=== PATIENT | male | born 1960 | race Caucasian/White ===

== ENCOUNTER 2019-02-16 18:20 | Inpatient (IN) | payer OTHER, MEDICAID ==
[2019-02-16] VITALS (7 sets, daily range): BP systolic 109–130
[~2019-02-16] VITALS: Ht 175.3 cm; Wt 103.0 kg
--- NOTE | 2019-02-16 18:15 | NUR ---
TO ICU. RECEIVED PATIENT VIA GURNEY, AMBULANCE TRANSPORT, PT ALERT, MAKING PEACE SIGN WITH HIS FINGERS, ON O2 VIA OXYMIZER AT 10L, NGT INTACT IN LEFT NARIS, CONNECTED TO LOW INTERMITTENT SUCTION, WITH GREENISH BILE DRAINAGE, ABDOMEN DISTENDED, DIAPER REMOVED, DENUDED BUTTOCKS, PT HX CEREBRAL PALSY, PARAPLEGIA,HIS RIGHT FOOT TURNED OUTWARD. SAP SECURITY ARCHITECT ON SINUS TACHYCARDIA, PULSE OXIMETER AND BLOOD PRESSURE CUFF ATTACHED TO PT.
--- NOTE | 2019-02-16 19:00 | NUR ---
REPORT. GIVEN TO ONCOMING VP PROJECT NURSE.
--- NOTE | 2019-02-16 19:30 | NUR ---
PM ASSESSMENT REPORT RECEIVED FROM CARLA DIEZ. PT RECEIVED IN BED WITH EYES OPEN, RESPONDING TO VERBAL STIMULATION. PT ABLE TO FOLLOW SIMPLE COMMANDS AND IS VERBAL WITH SLOW SPEECH. VSS, NO S/S OF ACUTE DISTRESS NOTED. PT ON 10L OXIMIZER. ST ON MONITOR. DANIEL 20G IN PLACE TO SL, PATENT AND INTACT. L NARE NGT IN PLACE TO LOW INTERMITTENT SUCTION. GREEN DRAINAGE NOTED. PT DENIES ANY PAIN OR DISCOMFORT AT THIS TIME. HOB ELEVATED, BED IN LOWEST POSITION, CALL LIGHT IN REACH. WILL CONTINUE TO MONITOR PT.
[2019-02-16] MEDS ORDERED: GABA300S PO (20:31)
[2019-02-16] MEDS ORDERED: PRO10 PO (20:31)
[2019-02-16] MEDS ORDERED: LISI-600 PO (20:31)
[2019-02-16] MEDS ORDERED: OXYB5TAB11 PO (20:31)
[2019-02-16] MEDS ORDERED: POLY17PO4 PO (20:31)
[2019-02-16] MEDS ORDERED: LACT10SO6 PO (20:31)
[2019-02-16] MEDS ORDERED: TAMS-11 PO (20:31)
[2019-02-16] MEDS ORDERED: LEVE500T9 PO (20:31)
[2019-02-16] MEDS ORDERED: PIPE3.3714 IV (20:31)
[2019-02-16] MEDS ORDERED: BISA5TAB10 PO (20:31)
[2019-02-16] MEDS ORDERED: METO-290 PO (20:32)
[2019-02-16] MEDS ORDERED: DOCU250C71 PO (20:32)
[2019-02-16] MEDS ORDERED: ASA81 PO (20:32)
--- NOTE | 2019-02-16 20:50 | NUR ---
CONSULTATION PAGED/CALLED Reason for Consultation: SBO, POSSIBLE BOWEL NECROSIS Person Who was Notified: JASPER Consulting Physician: DR. BECKFORD Ordering Physician: DR. EMERSON
[2019-02-16] MEDS ORDERED: Calcium Carbonate PO (20:52)
--- NOTE | 2019-02-16 20:53 | NUR ---
CONSULTATION PAGED/CALLED Reason for Consultation: CRITICAL CARE Person Who was Notified: PACO Consulting Physician: DR. BLANK Fish Boning Machine Feeder Specialty: PULMO Ordering Physician: DR. EMERSON
[2019-02-16] MEDS ORDERED: DOCUSATE SODIUM 250 MG CAPSULE PO PRN (21:00)
--- NOTE | 2019-02-16 21:30 | NUR ---
PINEDA CATH: # 16 FR Pineda catheter with 10 cc bulb inserted with use of sterile technique. Bulb inflated with 10 cc sterile water. Immediate return of 100 cc YELLOW urine noted. Bedside drainage bag placed below level of bladder. Urine sample collected and sent to lab. Pt tolerated procedure WELL.
--- NOTE | 2019-02-16 21:31 | NUR ---
PAGED PAGING DR. BECKFORD FOR ORDERS, SPOKE WITH JASPER
--- NOTE | 2019-02-16 22:00 | NUR ---
IV SITE INSERTION 20G LAC AND 22G R ANKLE IV SITES INSERTED AT THIS TIME. BOTH IV SITES FLUSHED WITH 10 CC NS AND BLOOD RETURN NOTED. PT TOLERATED WELL. WILL CONTINUE TO MONITOR PT.
--- NOTE | 2019-02-16 22:00 | NUR ---
PAGED x2 SECOND PAGE SENT OUT TO DR. BECKFORD FOR ORDERS, SPOKE WITH JASPER
[2019-02-16] MEDS ORDERED: MIDAZOLAM HCL 5 MG/5 ML VIAL IVP ONE (22:30)
[2019-02-16] MEDS ORDERED: ROCURONIUM BROMIDE 10 MG/ML (ZEMURON) IV ONE (22:30)
[2019-02-16] MEDS ORDERED: fentaNYL CITRATE/PF 100 MCG/2 ML AMP IVP ONE (22:30)
[2019-02-16] MEDS ORDERED: LR 500 ML IV.SOLN IV ONE (22:30)
[2019-02-16] MEDS ORDERED: SEVOFLURANE 15 MIN GAS INH ONE (22:30)
[2019-02-16] MEDS ORDERED: PROPOFOL 200MG/ 20ML VIAL (DIPRIVAN) IV ONE (22:30)
[2019-02-16] MEDS ORDERED: NS IRRIG SOLN 1000 ML IR ONE (22:30)
--- NOTE | 2019-02-16 22:30 | NUR ---
DR. ANALY MICHEL NOT RETURNING PAGES. PAGED THREE TIMES. WILL FOLLOW UP WITH AM SHIFT TO PAGE AGAIN REGARDING ORDERS.
[2019-02-16 23:00] LABS: INR 1.1 (0.80-1.20); PROTHROMBIN TIME 10.9 SECS (9.5-12.5)
[2019-02-16 23:09] LABS: HEMATOCRIT 41.3 % (36-54); HEMOGLOBIN 13.6 g/dL (14.0-18.0); MEAN CORPUSCULAR HEMOGLOBIN 32 pg (27-31); MEAN CORPUSCULAR HGB CONC 33 % (32-36); MEAN CORPUSCULAR VOLUME 96 fL (79.0-98.0); PLATELET COUNT (AUTO) 289 K/uL (130-430); RED BLOOD CELL COUNT(AUTO) 4.31 MIL/uL (4.2-6.2); RED CELL DISTRIBUTION WIDTH 14.2 % (9.0-15.0)
[2019-02-16 23:11] LABS: BILIRUBIN,URINE 1+ (NEGATIVE); CLARITY/URINE CLEAR (CLEAR); COLOR,URINE ORANGE (YELLOW); GLUCOSE,URINE NEGATIVE (NEGATIVE); KETONES,URINE 1+ (NEGATIVE); LEUKOCYTE ESTERASE ,URINE NEGATIVE (NEGATIVE); NITRITE, URINE NEGATIVE (NEGATIVE); PH,URINE 6.5 (5.0-8.0); PROTEIN URINE 2+ (NEGATIVE); UROBILINOGEN,URINE 0.2 (0.2-1.0)
[2019-02-16 23:12] LABS: BLOOD, URINE TRACE (NEGATIVE)
[2019-02-16 23:18] LABS: BACTERIA,URINE FEW /HPF (None Seen); HYALINE CASTS, URINE 0-10 /LPF (None Seen); WBC,URINE 0-3 /HPF (0-3)
[2019-02-16] MEDS ORDERED: PIPERACILLIN/TAZOBACTAM 3.375 GM/VIAL (ZOSYN) IV ONE (23:18)
[2019-02-16 23:33] LABS: ATYPICAL LYMPHOCYTES % 4 % (0-0); BAND % (MANUAL) 10 % (0-6); BASOPHILS % (MANUAL) 0 % (0-2); EOSINOPHILS % (MANUAL) 0 % (0-7); LYMPHOCYTES % (MANUAL) 9 % (20-46); METAMYELOCYTES % 4 % (0-0); MONOCYTES % (MANUAL) 4 % (0-11)
[2019-02-16] MEDS: PIPERACILLIN/TAZO 3.375/DEX-IS 50 ML IV SCH (23:37)
[2019-02-16] MEDS: DOCUSATE SODIUM 100 MG CAPSULE PO SCH (23:38)
[2019-02-16] MEDS: METOCLOPRAMIDE HCL 10 MG TABLET PO SCH (23:38)
[2019-02-16] MEDS: OXYBUTYNIN CHLORIDE 5 MG TABLET PO SCH (23:38)
[2019-02-16] MEDS: GABAPENTIN 300 MG CAPSULE PO SCH (23:38)
[2019-02-16] MEDS: levETIRAcetam 500 MG TABLET PO SCH (23:38)
[2019-02-16] MEDS: HEPARIN SODIUM,PORCINE 5000 UNITS/ML VIAL SUBCUT SCH (23:39)
[2019-02-16 23:41] LABS: ALBUMIN 2.3 g/dL (3.4-4.8); CREATININE 0.64 mg/dL (0.55-1.30); FREE T4 (FREE THYROXINE) 0.6 ng/dL (0.6-1.6); PHOSPHORUS 1.6 mg/dL (2.7-4.5); POTASSIUM 3.4 mmol/L (3.5-5.1); THYROID STIMULATING HORMONE 0.33 uIu/mL (0.34-4.82); TOTAL BILIRUBIN 2.2 mg/dL (0.0-1.0)
[2019-02-16] MEDS: D5NS 1,000 ML IV SCH (23:44)
[2019-02-17] VITALS (24 sets, daily range): BP systolic 116–149
[2019-02-17] MEDS: PIPERACILLIN/TAZO 3.375/DEX-IS 50 ML IV SCH ×3 (05:01→17:08)
[2019-02-17 05:56] LABS: BASOPHILS % (AUTO) 0.2 % (0.0-2.0); EOSINOPHILS % (AUTO) 0.1 % (0.0-4.0); HEMATOCRIT 39.6 % (36-54); HEMOGLOBIN 13.2 g/dL (14.0-18.0); LYMPHOCYTES # (AUTO) 1.2 K/uL (1.0-5.5); LYMPHOCYTES % (AUTO) 8.8 % (20.5-51.5); MEAN CORPUSCULAR HEMOGLOBIN 32 pg (27-31); MEAN CORPUSCULAR HGB CONC 33 % (32-36); MEAN CORPUSCULAR VOLUME 97 fL (79.0-98.0); MONOCYTES # (AUTO) 1.2 K/uL (0.0-1.0); MONOCYTES % (AUTO) 8.9 % (1.7-9.3); NEUTROPHILS # (AUTO) 10.9 K/uL (1.8-7.7); PLATELET COUNT (AUTO) 283 K/uL (130-430); RED CELL DISTRIBUTION WIDTH 14.1 % (9.0-15.0); WHITE BLOOD COUNT (AUTO) 13.2 K/uL (4.8-10.8)
[2019-02-17 06:12] LABS: INR 1.1 (0.80-1.20); PROTHROMBIN TIME 10.8 SECS (9.5-12.5)
[2019-02-17 06:24] LABS: CALCIUM 8.9 mg/dL (8.4-11.0); CREATININE 0.7 mg/dL (0.55-1.30); POTASSIUM 3.2 mmol/L (3.5-5.1)
--- NOTE | 2019-02-17 07:04 | NUR ---
Opening Note Received plan of care via SBAR from endorsing nurse Terra DIEZ. Completed patient round.
--- NOTE | 2019-02-17 07:14 | NUR ---
ENDORSEMENT BEDSIDE REPORT GIVEN TO CHEYENNE DIEZ USING SBAR APPROACH.
[2019-02-17] MEDS ORDERED: POTASSIUM CHLORIDE 40 MEQ, LIDOCAINE JECT 2% PF 100 MG 50 MG in NS 250 ML IV ONE (07:15)
[2019-02-17] MEDS: D5NS 1,000 ML IV SCH ×2 (08:15→17:08)
[2019-02-17] MEDS: TAMSULOSIN HCL 0.4 MG CAP PO SCH (08:18)
[2019-02-17] MEDS: METOCLOPRAMIDE HCL 10 MG TABLET PO SCH (08:18)
[2019-02-17] MEDS: levETIRAcetam 500 MG TABLET PO SCH ×2 (08:18→21:18)
[2019-02-17] MEDS: OXYBUTYNIN CHLORIDE 5 MG TABLET PO SCH ×3 (08:18→21:18)
[2019-02-17] MEDS: FLUoxetine HCL 10 MG CAPSULE (PROzac) PO SCH (08:18)
[2019-02-17] MEDS: ASPIRIN 81 MG TAB.CHEW PO SCH (08:18)
[2019-02-17] MEDS: LACTULOSE 20 GM/30 ML UDC PO SCH (08:19)
[2019-02-17] MEDS: POLYETHYLENE GLYCOL 3350, 17 GM/ POWD.PACK PO SCH (08:19)
[2019-02-17] MEDS: DOCUSATE SODIUM 100 MG CAPSULE PO SCH ×2 (08:19→21:18)
[2019-02-17] MEDS: BISACODYL 5 MG TABLET.DR (DULCOLAX) PO SCH (08:19)
[2019-02-17] MEDS: LISINOPRIL 20 MG TABLET PO SCH (08:19)
--- NOTE | 2019-02-17 09:00 | NUR ---
PAGED DR. BECKFORD PER NURSE SPOKE TO ALEXIS DIALED [phone]
[2019-02-17] MEDS: HEPARIN SODIUM,PORCINE 5000 UNITS/ML VIAL SUBCUT SCH ×2 (09:01→21:18)
--- NOTE | 2019-02-17 09:15 | NUR ---
Received call from Dr. Arndt. He recommended that the patient should be transferred to tertiary care. At the end of the conversation, ordered a gastrographing enema without barium. Requested to call [phone] directly after receiving results from the gastrographing.
[2019-02-17] MEDS ORDERED: GASTROGRAFIN 120 ML ONE (10:54)
[2019-02-17] MEDS: MORPHINE 2 MG/ML INJ. SYRINGE IVP PRN (12:16)
--- NOTE | 2019-02-17 14:10 | NUR ---
Turned pt to right side for gastrograffin study per astro technician. Pt started coughing and NG connected to LIS with immediate return of 1300cc green drainage. Will leave NG to LIS and monitor drainage.
--- NOTE | 2019-02-17 15:12 | NUR ---
Spoke with Dr. Munoz on the phone. Informed him pt was placed on his right side at the request of the tech to get the contrast to go through as she didn't see the contrast moving through the pts system. When pt was turned to his side right the patient started coughing and I connected the NG tube to suction approx an hour ago with a return of 1600cc green drainage in that hour alone. He said that I should call the surgeon and let him know this. process control tech here for another picture and said she saw gastrograffin moving through. Will call Dr. Asher with results of this last xray.
--- NOTE | 2019-02-17 15:30 | NUR ---
Called Dr. Asher and informed him that the next xray for gastrograffin test was at 1715 today. Also informed him that has had a total of 2700cc out on day shift today. He would like to be called on his cell phone at [phone] when test results are in.
--- NOTE | 2019-02-17 19:20 | NUR ---
Closing Note Gave plan of care via SBAR to endorsing nurse Juice RN. Completed patient round.
[2019-02-17 19:26] LABS: BASOPHILS % (AUTO) 0.1 % (0.0-2.0); EOSINOPHILS % (AUTO) 0.4 % (0.0-4.0); HEMATOCRIT 38.5 % (36-54); HEMOGLOBIN 12.5 g/dL (14.0-18.0); LYMPHOCYTES # (AUTO) 1.3 K/uL (1.0-5.5); LYMPHOCYTES % (AUTO) 10.4 % (20.5-51.5); MEAN CORPUSCULAR HEMOGLOBIN 32 pg (27-31); MEAN CORPUSCULAR HGB CONC 33 % (32-36); MEAN CORPUSCULAR VOLUME 97 fL (79.0-98.0); MONOCYTES # (AUTO) 1.4 K/uL (0.0-1.0); MONOCYTES % (AUTO) 10.8 % (1.7-9.3); NEUTROPHILS # (AUTO) 10.2 K/uL (1.8-7.7); NEUTROPHILS % (AUTO) 78.3 % (40.0-70.0); PLATELET COUNT (AUTO) 271 K/uL (130-430); RED BLOOD CELL COUNT(AUTO) 3.97 MIL/uL (4.2-6.2)
[2019-02-17 19:30] LABS: CALCIUM 8.8 mg/dL (8.4-11.0); CREATININE 0.63 mg/dL (0.55-1.30); POTASSIUM 3.4 mmol/L (3.5-5.1)
[2019-02-17 19:34] LABS: ALBUMIN 1.9 g/dL (3.4-4.8); TOTAL BILIRUBIN 1.9 mg/dL (0.0-1.0)
--- NOTE | 2019-02-17 20:00 | NUR ---
SLOW TO RESPOND, BUT IS ABLE TO LET NEEDS BE KNOWN. ON O2 AT 5L/OXYMIZER. PARAPLEGIC. HEAD TILTS TO LEFT. PINEDA CATH PATENT DRAINING CLOUDY GRAEME URINE TO GRAVITY. RIGHT UPPER ARM PICC LINE DRSG D/I. LEFT NARES NGT TO LIS WITH DARK GREEN SECRETIONS DRAINING. SIDE RAILS PADDED. PARAPLEGIC.
--- NOTE | 2019-02-17 20:15 | NUR ---
COLLECTED SPUTUM SAMPLE PER ORDER, NO DISTRESS NOTED. RETURNED PT TO 5L O2 Addendum: 02/17/19 at 2036 by Debbie West RT Amended: Links added.
[2019-02-17] MEDS ORDERED: D5/0.45 NS 1,000 ML IV SCH (21:15)
[2019-02-17] MEDS: GABAPENTIN 300 MG CAPSULE PO SCH (21:17)
--- NOTE | 2019-02-17 22:00 | NUR ---
HS CARE GIVEN. AGGRESSIVE ORAL CARE DONE. TURNED.
--- NOTE | 2019-02-17 23:00 | NUR ---
FAMILY LEFT FOR HOME EARLIER. IV CHANGED TO D5 1/2NS AT 80CC/HR PER ORDER OF DR EMERSON.
[2019-02-18] VITALS (22 sets, daily range): BP systolic 94–137
[2019-02-18] MEDS: PIPERACILLIN/TAZO 3.375/DEX-IS 50 ML IV SCH ×5 (00:17→23:59)
--- NOTE | 2019-02-18 02:00 | NUR ---
DOZES ON AND OFF. NGT WITH COPIOUS AMOUNTS OF SECRETIONS NOTED.
--- NOTE | 2019-02-18 05:00 | NUR ---
1 MOD BROWN FORMED STOOL DEFECATED. CLEANED. CHG BATH GIVEN. MONA-CARE. Z-GUARD APPLIED. SKIN CARE GIVEN. PINEDA CARE, ORAL CARE, BACK CARE DONE. DOES NOT ASSIST WITH TURNING. YAO PROC WELL.
[2019-02-18 05:43] LABS: BASOPHILS # (AUTO) 0.1 K/uL (0.0-0.2); BASOPHILS % (AUTO) 0.3 % (0.0-2.0); EOSINOPHILS # (AUTO) 0.1 K/uL (0.0-0.4); HEMOGLOBIN 12.4 g/dL (14.0-18.0); LYMPHOCYTES # (AUTO) 1.8 K/uL (1.0-5.5); LYMPHOCYTES % (AUTO) 11.7 % (20.5-51.5); MEAN CORPUSCULAR HEMOGLOBIN 31 pg (27-31); MEAN CORPUSCULAR HGB CONC 33 % (32-36); MEAN CORPUSCULAR VOLUME 96 fL (79.0-98.0); MONOCYTES # (AUTO) 1.8 K/uL (0.0-1.0); MONOCYTES % (AUTO) 11.8 % (1.7-9.3); NEUTROPHILS # (AUTO) 11.3 K/uL (1.8-7.7); NEUTROPHILS % (AUTO) 75.2 % (40.0-70.0); PLATELET COUNT (AUTO) 249 K/uL (130-430); RED BLOOD CELL COUNT(AUTO) 3.97 MIL/uL (4.2-6.2); RED CELL DISTRIBUTION WIDTH 14.1 % (9.0-15.0)
[2019-02-18 05:59] LABS: CALCIUM 8.7 mg/dL (8.4-11.0); CREATININE 0.7 mg/dL (0.55-1.30); POTASSIUM 3.3 mmol/L (3.5-5.1)
--- NOTE | 2019-02-18 06:00 | NUR ---
NGT 1600 CC OUT. UO 250CC OUT. REMAINS IN GUARDED CONDITION.
--- NOTE | 2019-02-18 07:15 | NUR ---
AM ASSESSMENT Pt received from night RN. Pt laying in bed with eyes closed, pt is easily awaken to verbal stimuli. Pt on oximizer 5L with sats >98%. Brandon cath in place draining abhi urine to gravity. L-Nare NG tube to suction producing green contents. Bed in lowest position, no signs of distress. Pt denies any pain.
--- NOTE | 2019-02-18 08:26 | NUR ---
Nutrition Update Fahad Scale 13 noted. Pt admitted for possible Bowel Obstruction. Diet: NPO BMI: 33.5 RD to follow per nutrition care standards.
--- NOTE | 2019-02-18 08:29 | NUR ---
CONSULT: ID DR. Marissa BOONE CALLED SPOKE TO VIVIENNE DIALED [phone] MEDEROS
[2019-02-18] MEDS: LACTULOSE 20 GM/30 ML UDC PO SCH (08:52)
[2019-02-18] MEDS: POLYETHYLENE GLYCOL 3350, 17 GM/ POWD.PACK PO SCH (08:52)
[2019-02-18] MEDS: OXYBUTYNIN CHLORIDE 5 MG TABLET PO SCH ×3 (08:53→21:17)
[2019-02-18] MEDS: DOCUSATE SODIUM 100 MG CAPSULE PO SCH ×2 (08:53→21:17)
[2019-02-18] MEDS: levETIRAcetam 500 MG TABLET PO SCH ×2 (08:53→21:17)
[2019-02-18] MEDS: TAMSULOSIN HCL 0.4 MG CAP PO SCH (08:53)
[2019-02-18] MEDS: BISACODYL 5 MG TABLET.DR (DULCOLAX) PO SCH (08:53)
[2019-02-18] MEDS: FLUoxetine HCL 10 MG CAPSULE (PROzac) PO SCH (08:53)
[2019-02-18] MEDS: ASPIRIN 81 MG TAB.CHEW PO SCH (08:53)
[2019-02-18] MEDS: LISINOPRIL 20 MG TABLET PO SCH ×2 (08:53→09:00)
[2019-02-18] MEDS: HEPARIN SODIUM,PORCINE 5000 UNITS/ML VIAL SUBCUT SCH ×2 (08:55→22:19)
[2019-02-18] MEDS ORDERED: POTASSIUM CHLORIDE 40 MEQ in D5W 250 ML IV ONE (10:30)
[2019-02-18] MEDS: POTASSIUM CHLORIDE 10 MEQ in D5W 1,000 ML IV SCH ×2 (11:11→22:20)
--- NOTE | 2019-02-18 12:50 | NUR ---
Spoke to Dr. Asher, results of XR-small bowel provided. New order received for 2 view Abd Xray 02/19/19. Order input in system.
--- NOTE | 2019-02-18 12:55 | NUR ---
XR Called XR for clarification of ordering 2view Abd. XR. XR indicated order Abd series that will cover the 2 view.
--- NOTE | 2019-02-18 14:21 | NUR ---
Paged Paged Dr. Armendariz, spoke to Leonie awaiting call back.
--- NOTE | 2019-02-18 14:34 | NUR ---
MD Call Back Dr. Armendariz called back, informed of low urinary output and irrigation. Instructed to bladder scan pt and phone MD with total.
--- NOTE | 2019-02-18 15:38 | NUR ---
MD Corinna Armendariz.
--- NOTE | 2019-02-18 15:41 | NUR ---
MD Call Back Dr. Armendariz called back and informed of bladder scan of >181cc. Orders to consult DR. Nettles received and entered.
--- NOTE | 2019-02-18 15:48 | NUR ---
CONSULT: UROLOGY Yanet PATTON CALLED SPOKE TO EULA DIALED [phone] MEDEROS
--- NOTE | 2019-02-18 16:00 | NUR ---
Wound Evaluation Kiran RN bedside with pt evaluating skin integrity.
--- NOTE | 2019-02-18 16:18 | NUR ---
Wound Evaluation: Wound Consult ordered for Low Fahad Score. Patient evaluated for a low Fahad score of an 11. Patient was awake, alert, oriented, and received in a Chester Bed with an IsoFlex MICHAEL mattress with low air-loss therapy initiated. Patient needs assist to turn in bed. Recommend reposition patient side to side only every 2 hours with pillow support (place one pillow above buttock and one pillow below buttock to allow buttock to float freely (should be able to slide hand underneath buttock easily)). Elevate, off-load and float bilateral heels with one pillow lengthwise under each extremity at all times. Offload pressure areas with pillows for pressure re-distribution. Perform skin care and monitor skin integrity Q shift. Use moisture barrier cream on moisture susceptible areas QID and PRN for soiling. Maintain patient on a low air-loss mattress. Skin assessment: 1. Right outer Buttock: Dry, flaky skin with a broken skin area, present on admission. 100% dark pink tissue present. No odor, no drainage. Does not appear to be an active wound. Site measures 0.8 cm x 0.1 cm. 2. Left Lower Buttock: Chronic wound, present on admission. Wound bed has 100% black scab. No odor, no drainage. Periwound intact. Wound measures 0.5 cm x 0.4 cm. Recommend: Cleanse involved areas with mild soap and water. Pat dry. Apply Hydraguard barrier cream to involved areas. Perform site care 4 times a day, and as needed for soiling. 3. Right heel: Right heel and lower extremity have dry, flaky skin. 4. Left heel: Left heel and lower extremity have dry, flaky skin. Recommend: Apply Eucerin cream to involved areas. Perform site care twice a day, and as needed for soiling. 5. Cervical spine: Patient has left lateral flexion contracture where skin makes contact in between neck and shoulder. Recommend: Cleanse involved areas with mild soap and water. Pat dry. Insert Inter-Dry AG cloth into site. Perform site care daily, and change Inter-Dry AG cloth every 5 days, and as needed for cloth soiling.
--- NOTE | 2019-02-18 19:00 | NUR ---
DR LISA HERE, SEEN PT. CHANGED PINEDA CATH TO A NEW 16 YAKUT PINEDA CATH WITH CLEAR YELLOW GRAEME URINE DRAINING TO GRAVITY. HAVING DIFFICULTY ANNUNCIATING WORDS , BUT IS ABLE TO LET NEEDS BE KNOWN. ABLE TO MOVE LEFT ARM AND HAND. OTHER EXTREMITIES FLACCID. ORAL CARE GIVEN.
--- NOTE | 2019-02-18 19:10 | NUR ---
MD Dr. Nettles at bedside with pt, removed previous fuentes cath, replaced with 16F fuentes cath. Urine collected for culture. Irrigation performed and return of urine. Pt tolerated well.
--- NOTE | 2019-02-18 19:25 | NUR ---
Closing Notes Pt endorsed to night RN using SBAR. Vital signs stable.
--- NOTE | 2019-02-18 20:00 | NUR ---
AWAKE. ON O2 AT 3L/MIN/OXYMIZER. NGT TO LIS WITH DARK GREEN SECRETIONS DRAINING TO LIS. PINEDA CATH PATENT DRAINING CLOUDY GRAEME URINE TO GRAVITY. SINUS RHYTHM.
--- NOTE | 2019-02-18 21:00 | NUR ---
DR BECKFORD HERE, SEEN PT. NEW ORDERS GIVEN TO BE CARRIED OUT.
[2019-02-18] MEDS: GABAPENTIN 300 MG CAPSULE PO SCH (21:17)
[2019-02-18] MEDS: MINERAL OIL/PETROLATUM,WHITE 113 GM CREAM.GM. TP SCH (21:19)
[2019-02-18] MEDS ORDERED: KCL 20 mEq in 100 mL (PREMIX) 100 ML IV ONE (21:24)
[2019-02-18] MEDS: HYDROcodone/ACETAMIN 5-325 MG TAB (NORCO/ VICODIN) PO PRN (21:25)
--- NOTE | 2019-02-18 21:25 | NUR ---
NORCO 5-325MG NGT GIVEN FOR GENERAL DISCOMFORT. HS CARE.
[2019-02-18] MEDS: MORPHINE 2 MG/ML INJ. SYRINGE IVP PRN (22:55)
--- NOTE | 2019-02-18 23:00 | NUR ---
MORPHINE 2 MG IVP GIVEN FOR C/O LOWER BACK PAIN.
[2019-02-19] VITALS (16 sets, daily range): BP systolic 96–143
--- NOTE | 2019-02-19 | NUR ---
MULTIPLE REQUESTS. TURNED Q2 HRS AND PRN. ORAL CARE GIVEN.
--- NOTE | 2019-02-19 02:30 | NUR ---
DR Marissa BOONE HERE, SEEN PT. NO NEW ORDERS GIVEN. PT MOANS AT TIMES.
--- NOTE | 2019-02-19 04:00 | NUR ---
YELLS "HELP". VSS. TURNED.
--- NOTE | 2019-02-19 05:00 | NUR ---
CHG BATH GIVEN. BACK CARE, PINEDA CARE, DONE. Z-GUARD APPLIED TO PERINEUM, SKIN CARE GIVEN. MONA CARE , ORAL CARE RENDERED. PINEDA CATH IRRIGATED, RED TINGED URINE NOTED. PARTIAL LINEN CHANGE. DOES NOT ASSIST WITH TURNING. YAO PROC WELL.
[2019-02-19] MEDS: PIPERACILLIN/TAZO 3.375/DEX-IS 50 ML IV SCH ×3 (05:21→17:25)
[2019-02-19 05:25] LABS: BASOPHILS % (AUTO) 0.2 % (0.0-2.0); EOSINOPHILS # (AUTO) 0.6 K/uL (0.0-0.4); EOSINOPHILS % (AUTO) 5.2 % (0.0-4.0); HEMATOCRIT 36.9 % (36-54); HEMOGLOBIN 12.2 g/dL (14.0-18.0); LYMPHOCYTES # (AUTO) 2.4 K/uL (1.0-5.5); MEAN CORPUSCULAR HEMOGLOBIN 32 pg (27-31); MEAN CORPUSCULAR HGB CONC 33 % (32-36); MEAN CORPUSCULAR VOLUME 97 fL (79.0-98.0); MONOCYTES # (AUTO) 1.6 K/uL (0.0-1.0); MONOCYTES % (AUTO) 13.2 % (1.7-9.3); NEUTROPHILS # (AUTO) 7.4 K/uL (1.8-7.7); NEUTROPHILS % (AUTO) 61.4 % (40.0-70.0); PLATELET COUNT (AUTO) 292 K/uL (130-430); RED BLOOD CELL COUNT(AUTO) 3.82 MIL/uL (4.2-6.2); RED CELL DISTRIBUTION WIDTH 14.2 % (9.0-15.0); WHITE BLOOD COUNT (AUTO) 12.2 K/uL (4.8-10.8)
[2019-02-19 05:43] LABS: CALCIUM 8.6 mg/dL (8.4-11.0); CREATININE 0.71 mg/dL (0.55-1.30); POTASSIUM 3.8 mmol/L (3.5-5.1)
--- NOTE | 2019-02-19 06:00 | NUR ---
NG 900CC OUT. UO 320CC OUT. REMAINS IN GUARDED CONDITION.
--- NOTE | 2019-02-19 07:25 | NUR ---
AM ASSESSMENT Pt received from night RN. Vital signs stable, Pt connected to 3L via nasal canula with oxygenation of 95%. Brandon cath in place draining abhi urine to gravity. Bed in lowest position, pt reoriented to call light.
--- NOTE | 2019-02-19 08:40 | NUR ---
Paged Dr. Asher, spoke to [place] with the exchange.
--- NOTE | 2019-02-19 09:00 | NUR ---
MD Dr. Armendariz at bedside with pt.
--- NOTE | 2019-02-19 09:13 | NUR ---
CONSULT: REGAN SHANE CALLED (DR. MITTAL STORES CLERK) SPOKE TO VEENA DIALED [phone] MEDEROS
[2019-02-19] MEDS ORDERED: LORazepam 2 MG/ML VIAL IVP ONE (09:15)
--- NOTE | 2019-02-19 09:45 | NUR ---
NG-Tube Suction stopped at this time for medication administration.
[2019-02-19] MEDS: HEPARIN SODIUM,PORCINE 5000 UNITS/ML VIAL SUBCUT SCH ×2 (09:48→23:02)
[2019-02-19] MEDS: ASPIRIN 81 MG TAB.CHEW PO SCH (09:49)
[2019-02-19] MEDS: TAMSULOSIN HCL 0.4 MG CAP PO SCH (09:49)
[2019-02-19] MEDS: POTASSIUM CHLORIDE 10 MEQ in D5W 1,000 ML IV SCH ×2 (09:49→23:20)
[2019-02-19] MEDS: BISACODYL 5 MG TABLET.DR (DULCOLAX) PO SCH (09:49)
[2019-02-19] MEDS: levETIRAcetam 500 MG TABLET PO SCH ×2 (09:49→23:04)
[2019-02-19] MEDS: POLYETHYLENE GLYCOL 3350, 17 GM/ POWD.PACK PO SCH (09:49)
[2019-02-19] MEDS: LACTULOSE 20 GM/30 ML UDC PO SCH (09:49)
[2019-02-19] MEDS: DOCUSATE SODIUM 100 MG CAPSULE PO SCH ×2 (09:50→23:07)
[2019-02-19] MEDS: OXYBUTYNIN CHLORIDE 5 MG TABLET PO SCH ×3 (09:50→21:00)
[2019-02-19] MEDS: FLUoxetine HCL 10 MG CAPSULE (PROzac) PO SCH (09:50)
[2019-02-19] MEDS: MINERAL OIL/PETROLATUM,WHITE 113 GM CREAM.GM. TP SCH ×2 (09:51→23:06)
--- NOTE | 2019-02-19 10:08 | NUR ---
MD CALL BACK Dr. Asher called back and notified of results from pts 2 view Abd series XR. MD ordered to stop suction from NG-Tube and monitor abdominal distention and pts pain level.
[2019-02-19] MEDS: LISINOPRIL 20 MG TABLET PO SCH (10:29)
--- NOTE | 2019-02-19 12:00 | NUR ---
Social Service ICU Assessment/Discharge Plan Assessment COMPOSITION MIXER met with patient at bedside. Patient was drowsy but able to answer a few questions. He likes living at his halfway, Dusty Pierce [phone], and wants to return when he leaves [facility]. Patient agreed that COMPOSITION MIXER could phone his sister, Ely, for further information. Phoned Ely Maurice, . She stated that she plans for patient to return to the board and care upon discharge. He has never been to a SNF. The board and care has all the equipment patient needs, including a Hayden lift and hospital bed. The board and care should be called about any home health orders. They will transport patient back in a wheelchair van upon discharge. Patient is connected to [facility]. Sister Ely has POA. Sales Account Associate/Case Management/Discharge Planning will remain available.
[2019-02-19] MEDS: MORPHINE 2 MG/ML INJ. SYRINGE IVP PRN (12:32)
--- NOTE | 2019-02-19 12:53 | NUR ---
MOUTH PAIN PT C/O MOUTH PAIN. NO CANDIDIASIS VISUALIZED, NO ACTIVE BLEEDING. DRY TONGUE, BACK LEFT MOLAR APPEARS LOOSE PARTIALLY CONNECTED BY BLACK ROOT. VERBAL ORDER OBTAINED BY DR. MEDEROS FOR VISCOUS LIDOCAINE SWIRL AND SPIT ENTERED.
--- NOTE | 2019-02-19 13:15 | NUR ---
NG-Tube Suction turned back on due to abdominal distention and pt complaints of pain.
--- NOTE | 2019-02-19 14:15 | NUR ---
NG-Tube 1 hour post suction turned back on 300cc of green output.
[2019-02-19] MEDS: HYDROcodone/ACETAMIN 5-325 MG TAB (NORCO/ VICODIN) PO PRN ×2 (14:26→23:05)
[2019-02-19] MEDS: LIDOCAINE VISCOUS 2%, 15 ML UDC MM PRN ×2 (14:26→23:00)
--- NOTE | 2019-02-19 14:52 | NUR ---
Transfer Pt and all of pts belongings transferred to TELE room 116-B. Report given bedside to Donita DIEZ. Vital signs stable. Pt transported with portable monitor.
--- NOTE | 2019-02-19 15:07 | NUR ---
Dietitian Recommendations * Recommend continuing NPO * Consider swallow eval if/when medically appropriate * Consider alternative nutrition support within 1 week if PO intake is not indicated LP, RD Please refer to Nutrition Assessment for details. Addendum: 02/19/19 at [address] Amended: Links added.
--- NOTE | 2019-02-19 15:25 | NUR ---
Note Pt in room 116B. Transferred via bed from ICU. Report received at bedside at this time. NGT clamped at this time per Dr Asher's instructions. Pt has O2 at 2L/Oxymizer. Brandon catheter intact and draining at this time abhi colored urine. ALEXEI PICC intact and patent infusing IVF's well at this time. Pt denies any needs at this time. Call light within reach.
--- NOTE | 2019-02-19 15:40 | NUR ---
RT NOTES NTS PT FOR SPUTUM SAMPLE BUT NO RETURN. CHARY CERDA MADE AWARE.
--- NOTE | 2019-02-19 15:55 | NUR ---
Family Pts sister Ely updated of pts transfer to TELE room 116-B.
--- NOTE | 2019-02-19 15:58 | NUR ---
MD Dr. Asher informed of NGT suction turned back on at 1315 due to pt discomfort and abdominal distention. NGT turned on until 1415 with a total of 375cc of Green color gastric content. Informed MD of pts transfer to TELE room 116-B. Called Donita WATSON RN to inform that Dr. Asher wants pt placed back on low continuos suction.
--- NOTE | 2019-02-19 16:22 | NUR ---
Note NGT to LCS at [address] Asher's order (per Melania YOGA TEACHER)
--- NOTE | 2019-02-19 18:10 | NUR ---
Note Pt resting in bed at this time, no SOB/resp distress or pain/discomfort noted at this time. Pt has O2 on at 2L/Oxymizer. Pt's ALEXEI PICC intact and patent infusing IVF's well. Brandon catheter intact and draining well, abhi colored drainage. Tele unit intact and attached. Pt's NGT to LCS on, no drainage noted at this time. Pt was checked on q1' and PRN all shift for needs and care. Pt was maintained with safety precautions all shift. No needs noted at this time. Call light within reach. Agree with ICU assessment done this am at 08am. No changes noted. Pt's sister and another family member came to visit pt around 4pm. Stayed for short period of time. Introduced themselves to staff.
--- NOTE | 2019-02-19 20:00 | NUR ---
ASSESSMENT Pt alert/oriented to self and place. Oxygen in use via oxymizer 2L/min. NGT present left nare connected to LIS. PICC line present right upper arm, no redness or swelling noted @ site. No c/o pain. Brandon cath in use, concentrated abhi urine noted.
--- NOTE | 2019-02-19 21:45 | NUR ---
NASOGASTRIC TUBE Pt pulled out NGT from left nare. Pt also c/o pain in mouth.
--- NOTE | 2019-02-19 21:55 | NUR ---
NASOGASTRIC TUBE NGT replacement attempted in left then right nares. Both nares blocked with dry mucus and unable to pass NGT. Oral gastric tube placed instead. Placement checked by auscultating tube when flushed with air, By 2 RNs.
[2019-02-19] MEDS: GABAPENTIN 300 MG CAPSULE PO SCH (23:05)
[2019-02-20] MEDS: PIPERACILLIN/TAZO 3.375/DEX-IS 50 ML IV SCH ×4 (00:42→17:34)
[2019-02-20 00:47] VITALS: BP_SYST 125
--- NOTE | 2019-02-20 07:15 | NUR ---
received patient sbar at the bedside. patient alert knows his name and place. has oxygen 2lnc via oximizer. has iv access on the rt upper picc line with iv fluids on. has fuentes catheter w/dark abhi urine. bed in low position, alarmed and locked. call lights within reach. hob elevated. with oral tube on the mouth connected to lis. instructed to call for assistance.
[2019-02-20 07:45] LABS: BASOPHILS % (AUTO) 0.3 % (0.0-2.0); EOSINOPHILS # (AUTO) 1.2 K/uL (0.0-0.4); EOSINOPHILS % (AUTO) 10.7 % (0.0-4.0); HEMATOCRIT 36.9 % (36-54); LYMPHOCYTES # (AUTO) 2.5 K/uL (1.0-5.5); LYMPHOCYTES % (AUTO) 22.5 % (20.5-51.5); MEAN CORPUSCULAR HEMOGLOBIN 31 pg (27-31); MEAN CORPUSCULAR HGB CONC 33 % (32-36); MEAN CORPUSCULAR VOLUME 96 fL (79.0-98.0); MONOCYTES # (AUTO) 1.5 K/uL (0.0-1.0); MONOCYTES % (AUTO) 13.6 % (1.7-9.3); NEUTROPHILS # (AUTO) 5.9 K/uL (1.8-7.7); NEUTROPHILS % (AUTO) 52.9 % (40.0-70.0); PLATELET COUNT (AUTO) 313 K/uL (130-430); RED BLOOD CELL COUNT(AUTO) 3.85 MIL/uL (4.2-6.2); WHITE BLOOD COUNT (AUTO) 11.2 K/uL (4.8-10.8)
--- NOTE | 2019-02-20 08:00 | NUR ---
turn to sides. made comfortable.
[2019-02-20 08:15] LABS: ALBUMIN 1.9 g/dL (3.4-4.8); CALCIUM 8.4 mg/dL (8.4-11.0); CREATININE 0.66 mg/dL (0.55-1.30); POTASSIUM 3.8 mmol/L (3.5-5.1); TOTAL BILIRUBIN 1.7 mg/dL (0.0-1.0)
[2019-02-20 08:18] VITALS: BP_SYST 128
[2019-02-20] MEDS: POLYETHYLENE GLYCOL 3350, 17 GM/ POWD.PACK PO SCH (09:09)
[2019-02-20] MEDS: LACTULOSE 20 GM/30 ML UDC PO SCH (09:09)
[2019-02-20] MEDS: TAMSULOSIN HCL 0.4 MG CAP PO SCH (09:09)
[2019-02-20] MEDS: ASPIRIN 81 MG TAB.CHEW PO SCH (09:09)
[2019-02-20] MEDS: BISACODYL 5 MG TABLET.DR (DULCOLAX) PO SCH (09:09)
[2019-02-20] MEDS: OXYBUTYNIN CHLORIDE 5 MG TABLET PO SCH ×3 (09:10→20:27)
[2019-02-20] MEDS: LISINOPRIL 20 MG TABLET PO SCH (09:10)
[2019-02-20] MEDS: DOCUSATE SODIUM 100 MG CAPSULE PO SCH ×2 (09:10→21:00)
[2019-02-20] MEDS: levETIRAcetam 500 MG TABLET PO SCH ×2 (09:10→20:27)
[2019-02-20] MEDS: FLUoxetine HCL 10 MG CAPSULE (PROzac) PO SCH (09:11)
[2019-02-20] MEDS: MINERAL OIL/PETROLATUM,WHITE 113 GM CREAM.GM. TP SCH (09:12)
[2019-02-20] MEDS: HEPARIN SODIUM,PORCINE 5000 UNITS/ML VIAL SUBCUT SCH ×2 (09:18→21:00)
[2019-02-20 09:22] VITALS: BP_SYST 128
--- NOTE | 2019-02-20 09:30 | NUR ---
due medication given via oral tube. flushed with water.
--- NOTE | 2019-02-20 10:50 | NUR ---
turn to sides. made comfortable. hob elevated. pillows on the sides.
[2019-02-20 11:30] VITALS: BP_SYST 134
--- NOTE | 2019-02-20 12:00 | NUR ---
turn to sides. hob elevated. made comfortable.
[2019-02-20] MEDS: 0.45% NACL 1,000 ML IV SCH (12:23)
--- NOTE | 2019-02-20 13:00 | NUR ---
ekg and 2 d echocardiogram done and results at the chart.
--- NOTE | 2019-02-20 13:48 | NUR ---
still on npo status. dr roland morris needs to come and explained the procedure for tomorrow.
--- NOTE | 2019-02-20 14:30 | NUR ---
dr gomez came and evaluate the patient. ultrasound of abdomen done.
[2019-02-20 15:58] VITALS: BP_SYST 135
--- NOTE | 2019-02-20 16:00 | NUR ---
repositioned to sides. supine position. head bed elevated. still with g tube orally connected to lis suction.
[2019-02-20] MEDS: METOCLOPRAMIDE HCL 10 MG/2 ML VIAL IVP PRN (17:56)
[2019-02-20] MEDS: MORPHINE 2 MG/ML INJ. SYRINGE IVP PRN (17:58)
--- NOTE | 2019-02-20 18:27 | NUR ---
turn to sides. but refused. im okay with my position.
--- NOTE | 2019-02-20 19:15 | NUR ---
endorsed to Laina DIEZ
--- NOTE | 2019-02-20 19:35 | NUR ---
ROUNDS PATIENT RESTING COMFORTABLY IN BED, NOT IN DISTRESS, VITALS STABLE, DENIES ANY PAIN AND DISCOMFORT AT THIS TIME. ASSESSMENT DONE AND DOCUMENTED. SEE FLOWSHEET. NEEDS ATTENDED TO. SAFETY AND FALL PRECAUTION MEASURES IN PLACED. BED ALARM ON. CALL LIGHT PLACED WITHIN REACH.
--- NOTE | 2019-02-20 20:20 | NUR ---
DR. ANALY BECKFORD CALLED, UPDATED REGARDING CONSENT FOR PATIENT'S SURGERY. PATIENT'S PHONE # GIVEN TO HIM. WILL CONTINUE TO MONITOR.
[2019-02-20] MEDS: GABAPENTIN 300 MG CAPSULE PO SCH (20:27)
--- NOTE | 2019-02-20 20:40 | NUR ---
NOTES TASNEEM, PATIENT'S DAUGHTER CALLED AND GAVE TELEPHONE CONSENT FOR PATIENT'S SCHEDULED SURGERY, EXPLORATORY LAPAROTOMY. TELEPHONE CONSENT VERIFIED WITH ANOTHER NURSE KAZ DIEZ.
[2019-02-21] VITALS: BP_SYST 144
--- NOTE | 2019-02-21 00:12 | NUR ---
PATIENT RESTING: Patient resting quietly. No acute distress noted. Vital signs within normal range.
[2019-02-21] MEDS: PIPERACILLIN/TAZO 3.375/DEX-IS 50 ML IV SCH ×5 (01:57→23:42)
[2019-02-21] MEDS: 0.45% NACL 1,000 ML IV SCH ×2 (01:57→13:48)
[2019-02-21] MEDS: MINERAL OIL/PETROLATUM,WHITE 113 GM CREAM.GM. TP SCH ×3 (01:58→22:08)
--- NOTE | 2019-02-21 02:14 | NUR ---
ROUNDS PATIENT ASLEEP, RESPIRATIONS EVEN AND UNLABORED, NO SIGNS OF ANY PAIN AND DISCOMFORT NOTED. WILL CONTINUE TO MONITOR.
--- NOTE | 2019-02-21 04:10 | NUR ---
PATIENT RESTING: Patient resting quietly. No acute distress noted. Vital signs within normal range.
--- NOTE | 2019-02-21 06:44 | NUR ---
CLOSING NOTES PATIENT RESTING COMFORTABLY IN BED, VITALS STABLE, DENIES ANY PAIN AT THIS TIME. ALL NEEDS ATTENDED TO. SAFETY AND FALL PRECAUTION MEASURES MAINTAINED. WILL ENDORSE TO INCOMING SHIFT NURSE.
--- NOTE | 2019-02-21 07:38 | NUR ---
OPENING NOTE Patient resting in the bed. No acute distress. Respiration even and unlabored. On O2 2L/min via Oxymizer. Oral gastric tube intact to low intermittent suction with greenish drainage. Skin warm and dry to touch. PICC line intact to ALEXEI, no redness, no swelling, no drainage, covered with clean and dry transparent dressing. On 08/08 NS at 80ml/hr. F/C intact, drain gravity with yellow urine. Safety measure maintained. Call light within reached. Bed locked in low position, side rails up, bed alarm on. Will continue to monitor.
[2019-02-21 07:42] LABS: BASOPHILS # (AUTO) 0.2 K/uL (0.0-0.2); BASOPHILS % (AUTO) 1.4 % (0.0-2.0); EOSINOPHILS # (AUTO) 1.1 K/uL (0.0-0.4); EOSINOPHILS % (AUTO) 8.9 % (0.0-4.0); HEMATOCRIT 37.2 % (36-54); HEMOGLOBIN 12.3 g/dL (14.0-18.0); LYMPHOCYTES # (AUTO) 2.6 K/uL (1.0-5.5); LYMPHOCYTES % (AUTO) 21.4 % (20.5-51.5); MEAN CORPUSCULAR HEMOGLOBIN 32 pg (27-31); MEAN CORPUSCULAR HGB CONC 33 % (32-36); MEAN CORPUSCULAR VOLUME 98 fL (79.0-98.0); MONOCYTES # (AUTO) 1.4 K/uL (0.0-1.0); MONOCYTES % (AUTO) 11.8 % (1.7-9.3); NEUTROPHILS # (AUTO) 6.9 K/uL (1.8-7.7); NEUTROPHILS % (AUTO) 56.5 % (40.0-70.0); PLATELET COUNT (AUTO) 276 K/uL (130-430); RED CELL DISTRIBUTION WIDTH 14.3 % (9.0-15.0); WHITE BLOOD COUNT (AUTO) 12.2 K/uL (4.8-10.8)
[2019-02-21 07:55] VITALS: BP_SYST 125
[2019-02-21 08:15] LABS: ALBUMIN 1.6 g/dL (3.4-4.8); BILIRUBIN,DIRECT 0.6 mg/dL (0.0-0.3); CALCIUM 8.2 mg/dL (8.4-11.0); CREATININE 0.59 mg/dL (0.55-1.30); POTASSIUM 3.9 mmol/L (3.5-5.1); TOTAL BILIRUBIN 1.1 mg/dL (0.0-1.0)
[2019-02-21] MEDS: OXYBUTYNIN CHLORIDE 5 MG TABLET PO SCH ×3 (09:00→21:00)
[2019-02-21] MEDS: ASPIRIN 81 MG TAB.CHEW PO SCH (09:00)
[2019-02-21] MEDS: POLYETHYLENE GLYCOL 3350, 17 GM/ POWD.PACK PO SCH (09:00)
[2019-02-21] MEDS: HEPARIN SODIUM,PORCINE 5000 UNITS/ML VIAL SUBCUT SCH ×2 (09:00→21:00)
[2019-02-21] MEDS: levETIRAcetam 500 MG TABLET PO SCH ×2 (09:00→21:00)
[2019-02-21] MEDS: LISINOPRIL 20 MG TABLET PO SCH (09:00)
[2019-02-21] MEDS: DOCUSATE SODIUM 100 MG CAPSULE PO SCH ×2 (09:00→21:00)
[2019-02-21] MEDS: TAMSULOSIN HCL 0.4 MG CAP PO SCH (09:00)
[2019-02-21] MEDS: FLUoxetine HCL 10 MG CAPSULE (PROzac) PO SCH (09:00)
[2019-02-21] MEDS: BISACODYL 5 MG TABLET.DR (DULCOLAX) PO SCH (09:00)
[2019-02-21] MEDS: LACTULOSE 20 GM/30 ML UDC PO SCH (09:00)
--- NOTE | 2019-02-21 09:00 | NUR ---
SEEN AND EXAMINED BY LEAH VARGAS WITH ORDER Per Dr. Howard keep patient NPO today, not to give PO med.
[2019-02-21] MEDS: BISACODYL 10 MG/SUPPOSITORY RC ONE ×2 (09:16→09:41)
--- NOTE | 2019-02-21 10:32 | NUR ---
SEEN AND EXAMINED BY DR. MEDEROS [facility] Informed to Dr. Mederos, Dr. Howard this morning with order of KUB. Per Dr. Mederos to follow up the result and report to Dr. Asher to check need the surgery or not.
--- NOTE | 2019-02-21 11:31 | NUR ---
CALLED LARISA BIRD TO REPORT THE KUB RESULT Called Dr. Asher to report the KUB result from this morning, informed to Dr. Asher, patient had 2 large amount of loose BM since my shift, Dr. Howard come this morning, per Dr. Schmidt to hold Po medication and he ordered Dulcolax suppository but not given because patient had large amount loose BM prior administrated. Dr. Asher stated "that's fine, clamp gastric tube, cancel the surgery for today, abdomen x-ray 2 view tomorrow morning". Order read back and okay to Dr. Alberto. Informed to surgery department.
--- NOTE | 2019-02-21 11:43 | NUR ---
SEEN AND EXAMINED BY KAUSHAL LITTLEJOHN.
[2019-02-21 12:00] VITALS: BP_SYST 120
--- NOTE | 2019-02-21 12:40 | NUR ---
DR. CAMPUZANO IN THE UNIT AND REVIEW THE KUB RESULT AND STATED THAT KEEP THE PATIENT NPO, IF DOING WELL MAY BE START DIET TOMORROW.
--- NOTE | 2019-02-21 14:25 | NUR ---
ROUND Patient resting in the bed. No acute distress. Respiration even and unlabored. Continue on O2 2L/min via Oxymizer. Oral gastric tube clamp. PICC line intact, IVF infusing well. Safety measure maintained. Call light within reached. Bed locked in low position, side rails up. bed alarm on. Continue to monitor.
--- NOTE | 2019-02-21 16:10 | NUR ---
ROUND Patient resting in the bed. No acute distress. Respiration even and unlabored. Continue on O2 2L/min via Oxymizer. Oral gastric tube clamp. PICC line intact, IVF infusing well. Safety measure maintained. Call light within reached. Bed locked in low position, side rails up, bed alarm on. Continue to monitor.
[2019-02-21 16:44] VITALS: BP_SYST 144
--- NOTE | 2019-02-21 18:35 | NUR ---
CLOSING NOTE Patient resting in the bed. No acute distress. Respiration even and unlabored. On O2 2L/min via Oxymizer. Oral gastric tube intact and clamped. Skin warm and dry to touch. PICC line intact to ALEXEI, no redness, no swelling, no drainage, covered with clean and dry transparent dressing. On 08/08 NS at 80ml/hr, infusing well. F/C intact, drain gravity with yellow urine. Safety measure maintained. Call light within reached. Bed locked in low position, side rails up, bed alarm on. Will continue to monitor.
--- NOTE | 2019-02-21 19:26 | NUR ---
DR. BECKFORD CALLED AND TALKED TO DR. BECKFORD AND MADE HIM AWARE THAT PATIENT JUST PULLED OUT HIS ORAL GASTRIC TUBE, STATED THAT IT IS OK, JUST REMOVE IT. WILL CONTINUE TO MONITOR PATIENT.
[2019-02-21] MEDS: GABAPENTIN 300 MG CAPSULE PO SCH (21:00)
--- NOTE | 2019-02-21 22:10 | NUR ---
PATIENT RESTING: Patient resting quietly. No acute distress noted. Vital signs within normal range.
--- NOTE | 2019-02-22 00:14 | NUR ---
ROUNDS PATIENT ASLEEP, VITALS STABLE, NO SIGNS OF ANY PAIN AND DISCOMFORT NOTED. WILL CONTINUE TO MONITOR.
[2019-02-22 01:14] VITALS: BP_SYST 134
--- NOTE | 2019-02-22 02:16 | NUR ---
ROUNDS PATIENT ASLEEP, RESPIRATIONS EVEN AND UNLABORED, NO SIGNS OF ANY PAIN AND DISCOMFORT NOTED. WILL CONTINUE TO MONITOR.
[2019-02-22] MEDS: 0.45% NACL 1,000 ML IV SCH ×2 (03:20→17:17)
--- NOTE | 2019-02-22 04:13 | NUR ---
ROUNDS PATIENT ASLEEP, NO SIGNS OF ANY PAIN AND DISCOMFORT NOTED, RESPIRATIONS EVEN AND UNLABORED. WILL CONTINUE TO MONITOR.
[2019-02-22] MEDS: PIPERACILLIN/TAZO 3.375/DEX-IS 50 ML IV SCH ×4 (05:40→23:15)
--- NOTE | 2019-02-22 06:03 | NUR ---
CLOSING NOTES PATIENT AWAKE, VITALS STABLE, NO PAIN AND N/V AT THIS TIME. ALL NEEDS ATTENDED TO. SAFETY AND FALL MEASURES MAINTAINED. BED IN LOW AND LOCKED POSITION. CALL LIGHT PLACED WITHIN REACH.
[2019-02-22 06:28] LABS: BASOPHILS # (AUTO) 0.1 K/uL (0.0-0.2); BASOPHILS % (AUTO) 0.9 % (0.0-2.0); EOSINOPHILS # (AUTO) 0.8 K/uL (0.0-0.4); HEMATOCRIT 38.5 % (36-54); HEMOGLOBIN 12.5 g/dL (14.0-18.0); LYMPHOCYTES # (AUTO) 2.5 K/uL (1.0-5.5); LYMPHOCYTES % (AUTO) 20.6 % (20.5-51.5); MEAN CORPUSCULAR HEMOGLOBIN 33 pg (27-31); MEAN CORPUSCULAR HGB CONC 33 % (32-36); MEAN CORPUSCULAR VOLUME 100 fL (79.0-98.0); MONOCYTES # (AUTO) 1.4 K/uL (0.0-1.0); MONOCYTES % (AUTO) 11.7 % (1.7-9.3); NEUTROPHILS # (AUTO) 7.2 K/uL (1.8-7.7); PLATELET COUNT (AUTO) 244 K/uL (130-430); RED BLOOD CELL COUNT(AUTO) 3.86 MIL/uL (4.2-6.2); RED CELL DISTRIBUTION WIDTH 14.5 % (9.0-15.0)
[2019-02-22 06:50] LABS: ALBUMIN 1.7 g/dL (3.4-4.8); CALCIUM 8.1 mg/dL (8.4-11.0); CREATININE 0.6 mg/dL (0.55-1.30); TOTAL BILIRUBIN 0.7 mg/dL (0.0-1.0)
--- NOTE | 2019-02-22 07:22 | NUR ---
OPENING NOTE Patient resting in the bed. No acute distress. Respiration even and unlabored. On O2 2L/min via Oxymizer. Skin warm and dry to touch. PICC line intact to ALEXEI, no redness, no swelling, no drainage, covered with clean and dry transparent dressing. On 1/2 NS at 80ml/hr. F/C intact, drain gravity with yellow urine. Safety measure maintained. Call light within reached. Bed locked in low position, side rails up, bed alarm on. Will continue to monitor.
[2019-02-22 07:50] VITALS: BP_SYST 140
[2019-02-22 08:04] LABS: NEUTROPHILS % (AUTO) 59.8 % (40.0-70.0)
--- NOTE | 2019-02-22 08:50 | NUR ---
SEEN AND EXAMINED BY LEAH VARGAS.
--- NOTE | 2019-02-22 08:58 | NUR ---
RECEIVED THE CALL FROM DR. MEDEROS, [facility] Received the call from Dr. Mederos to update the patient's condition with order of D/C the current IVF, give D5 1/2NS at 80ml/hr. Order read back and okay to Dr. Mederos.
[2019-02-22] MEDS ORDERED: D5/0.45 NS 1,000 ML IV SCH (09:00)
--- NOTE | 2019-02-22 09:10 | NUR ---
RECEIVED THE CALL FROM LARISA BIRD. Received the call from Dr. Asher, reported to Dr. Asher, patient with 3 large loose BM in the yesterday daytime and 2 small regular BM last night. Abdomen x-ray is doing at bedside. Dr. Alberto with order clear liquid, hold Heparin until further order for possible surgery, okay to give Aspirin. Order read back and okay to Dr. Asher.
[2019-02-22] MEDS ORDERED: COMMUNICATION ORDER XX ONE ×2 (09:15→12:00)
--- NOTE | 2019-02-22 09:20 | NUR ---
SEEN AND EXAMINED BY LARISA BIRD.
[2019-02-22] MEDS: DOCUSATE SODIUM 100 MG CAPSULE PO SCH ×2 (10:08→20:58)
[2019-02-22] MEDS: FLUoxetine HCL 10 MG CAPSULE (PROzac) PO SCH (10:08)
[2019-02-22] MEDS: LACTULOSE 20 GM/30 ML UDC PO SCH (10:08)
[2019-02-22] MEDS: ASPIRIN 81 MG TAB.CHEW PO SCH (10:08)
[2019-02-22] MEDS: OXYBUTYNIN CHLORIDE 5 MG TABLET PO SCH ×3 (10:08→20:58)
[2019-02-22] MEDS: BISACODYL 5 MG TABLET.DR (DULCOLAX) PO SCH (10:08)
[2019-02-22] MEDS: POLYETHYLENE GLYCOL 3350, 17 GM/ POWD.PACK PO SCH (10:08)
[2019-02-22] MEDS: LISINOPRIL 20 MG TABLET PO SCH (10:09)
[2019-02-22] MEDS: levETIRAcetam 500 MG TABLET PO SCH ×2 (10:09→20:58)
[2019-02-22] MEDS: TAMSULOSIN HCL 0.4 MG CAP PO SCH (10:09)
[2019-02-22] MEDS: MINERAL OIL/PETROLATUM,WHITE 113 GM CREAM.GM. TP SCH ×2 (10:40→21:03)
[2019-02-22 11:35] VITALS: BP_SYST 145
--- NOTE | 2019-02-22 11:54 | NUR ---
KUB RESULT REPORTED TO DR. ASHER, MARTINEZ Called Dr. Asher, reported the KUB result. Dr. Asher stated "that is fine, may resume Heparin tonight". Order read back and okay to dr. Asher.
--- NOTE | 2019-02-22 12:00 | NUR ---
SEEN AND EXAMINED BY KAUSHAL LITTLEJOHN.
--- NOTE | 2019-02-22 13:20 | NUR ---
SEEN AND EXAMINED BY TASNEEM MURILLO.
--- NOTE | 2019-02-22 15:20 | NUR ---
ROUND Patient resting in the bed. No acute distress. Respiration even and unlabored. Continue on O2 2L/min via oxymizer. PICC intact, IVF infusing well. F/C intact, drain gravity. Safety measure maintained. Bed locked in low position, side rails up, bed alarm on. Call light within reached. Continue to monitor.
--- NOTE | 2019-02-22 15:25 | NUR ---
Nutrition F/U RD reviewed pt's current EMR record including diet Hx, physician notes, nursing notes, pertinent labs/meds/procedures, care trends, and care activity. Current Diet Order: clear liquid x0 days Subjective Info: Pt seen resting in bed w/ RT at bedside providing care at time of RD visit. Pt has a Hx of cerebral palsy, and was unable to provide answers to RD verbal interview questions. BMs noted yesterday -- SBO versus partial bowel obstruction seems improved per physician notes. Pt's diet recently advanced today. Current % PO Negligible x3 records MODIFIED Estimated Energy Expenditure (kcals/day) 4112-9372 kcal/day (25-30 kcal/kg Adj IBW for paraplegia (sepsis resolved per physician notes)) MODIFIED Estimated Protein Required (g/day) 54-67 gm/day (0.8-1 gm/kg Adj IBW for paraplegia (sepsis resolved per physician notes)) Estimated Fluid Required (l/day) 1.7-2 L/day (1 ml/kcal/day for maintenance) Problem/Etiology/Signs/Symptoms Increased nutritional needs related to metabolic demands as evidenced by estimated nutritional requirements for sepsis. *no longer applicable Suboptimal PO intakes related to possible lack of appetite associated w/ cognitive limitations as evidenced by negligible PO intake records. Expected Outcomes/Goals - Monitor advancement of diet, appetite, and PO intakes w/ goal of pt meeting at least 75% of estimated nutritional needs, labs trending WNL, normal GI function, and skin integrity/wt maintenance Dietitian Recommendations * Recommend continuing clear liquid diet (ONS Ensure Clear TID comes standard w/ clear liquid diet; provides 720 kcal/day, 24 gm protein/day) Follow Up High Risk: F/U in 2-3 days
--- NOTE | 2019-02-22 15:33 | NUR ---
Dietitian Recommendations * Recommend continuing clear liquid diet (ONS Ensure Clear TID comes standard w/ clear liquid diet; provides 720 kcal/day, 24 gm protein/day) LP, RD Please refer to Nutrition F/U for details.
[2019-02-22 15:38] VITALS: BP_SYST 131
--- NOTE | 2019-02-22 17:28 | NUR ---
ROUND Patient resting in the bed and watching TV. No acute distress. Respiration even and unlabored. Continue on O2 2L/min via oxymizer. PICC intact, Zosyn hang. F/C intact, drain gravity. Safety measure maintained. Bed locked in low position, side rails up, bed alarm on. Call light within reached. Continue to monitor.
--- NOTE | 2019-02-22 18:36 | NUR ---
CLOSING NOTE Patient resting in the bed. No acute distress. Respiration even and unlabored. On O2 2L/min via Oxymizer. Skin warm and dry to touch. PICC line intact to ALEXEI, no redness, no swelling, no drainage, covered with clean and dry transparent dressing. On 1/2 NS at 60ml/hr. F/C intact, drain gravity with yellow urine. All needs met and attended. No seizure activity noted. Safety measure maintained. Call light within reached. Bed locked in low position, side rails up, bed alarm on. Will endorse to night nurse.
--- NOTE | 2019-02-22 19:05 | NUR ---
Opening Notes Received bedside report in room, patient alert and orient to name and birthday. On 2L/min via Oxymizer. PICC line intact on Right Upper arm, double lumen, no redness, no swelling, no drainage, covered with clean and dry transparent dressing. On 1/2 NS at 60ml/hr. Brandon catheter intact, draining by gravity with clear, yellow urine. Safety measure maintained. Oriented the patient to the room and use of the call light. Phone is also at the bedside. Bed is low, locked, and alarm active. Will monitor the patient on rounds.
[2019-02-22 20:00] VITALS: BP_SYST 132
[2019-02-22] MEDS: GABAPENTIN 300 MG CAPSULE PO SCH (20:58)
[2019-02-22] MEDS: HEPARIN SODIUM,PORCINE 5000 UNITS/ML VIAL SUBCUT SCH (21:00)
--- NOTE | 2019-02-22 22:02 | NUR ---
Patient tolerated PO medications 1 pill at a time. No adverse reactions noted. No complaints of pain or respiratory distress. Cody light within reach. Will cont to monitor on rounds.
--- NOTE | 2019-02-23 00:28 | NUR ---
Patient in bed asleep. Patient was cleaned and repositioned. No complaints of pain or shortness of breath. Z guard applied to buttocks. Brandon catheter bag emptied. Will cont to monitor.
[2019-02-23 00:30] VITALS: BP_SYST 148
--- NOTE | 2019-02-23 02:55 | NUR ---
Patient was repositioned and adjusted pillows under head. TV placed on for patient to watch.
--- NOTE | 2019-02-23 04:55 | NUR ---
no change in condition.
[2019-02-23] MEDS: PIPERACILLIN/TAZO 3.375/DEX-IS 50 ML IV SCH ×4 (05:13→23:12)
[2019-02-23] MEDS: 0.45% NACL 1,000 ML IV SCH (05:13)
--- NOTE | 2019-02-23 06:49 | NUR ---
Closing Notes Patient in bed resting. No complaint of pain or respiratory distress. patient fuentes emptied and draining yellow urine by gravity. ALEXEI PICC line clean dry and intact. Bed is low and locked with bed alarm on. Safety precautions in place. All needs have been met and will endorse care to oncoming nurse.
[2019-02-23 07:30] LABS: BASOPHILS # (AUTO) 0.1 K/uL (0.0-0.2); BASOPHILS % (AUTO) 0.6 % (0.0-2.0); EOSINOPHILS # (AUTO) 0.5 K/uL (0.0-0.4); EOSINOPHILS % (AUTO) 5.1 % (0.0-4.0); HEMATOCRIT 37.3 % (36-54); HEMOGLOBIN 12.5 g/dL (14.0-18.0); LYMPHOCYTES # (AUTO) 2.2 K/uL (1.0-5.5); LYMPHOCYTES % (AUTO) 22.9 % (20.5-51.5); MEAN CORPUSCULAR HEMOGLOBIN 32 pg (27-31); MEAN CORPUSCULAR HGB CONC 34 % (32-36); MEAN CORPUSCULAR VOLUME 96 fL (79.0-98.0); MONOCYTES # (AUTO) 0.9 K/uL (0.0-1.0); MONOCYTES % (AUTO) 9.6 % (1.7-9.3); PLATELET COUNT (AUTO) 374 K/uL (130-430); RED BLOOD CELL COUNT(AUTO) 3.89 MIL/uL (4.2-6.2); RED CELL DISTRIBUTION WIDTH 14.3 % (9.0-15.0); WHITE BLOOD COUNT (AUTO) 9.6 K/uL (4.8-10.8)
[2019-02-23 07:33] LABS: CALCIUM 8.2 mg/dL (8.4-11.0); CREATININE 0.64 mg/dL (0.55-1.30); POTASSIUM 3.3 mmol/L (3.5-5.1)
[2019-02-23 08:00] VITALS: BP_SYST 144
--- NOTE | 2019-02-23 08:00 | NUR ---
AM NOTES- In bed, awake. denies any pain or discomfort. Pt able to response to question, knows name and birthday, paraplegic, repositioned. Brandon cath draining clear yellow urine. ivf infusing on the right upper arm picc line.saferty precaution observed. bed alarm on, side rails padded. sinus on the monitor. will monitor.
[2019-02-23 09:05] LABS: NEUTROPHILS % (AUTO) 61.8 % (40.0-70.0)
[2019-02-23] MEDS: HEPARIN SODIUM,PORCINE 5000 UNITS/ML VIAL SUBCUT SCH ×2 (09:07→21:06)
[2019-02-23] MEDS: ASPIRIN 81 MG TAB.CHEW PO SCH (09:08)
[2019-02-23] MEDS: LISINOPRIL 20 MG TABLET PO SCH (09:08)
[2019-02-23] MEDS: OXYBUTYNIN CHLORIDE 5 MG TABLET PO SCH ×3 (09:08→21:03)
[2019-02-23] MEDS: TAMSULOSIN HCL 0.4 MG CAP PO SCH (09:08)
[2019-02-23] MEDS: levETIRAcetam 500 MG TABLET PO SCH ×2 (09:08→21:03)
[2019-02-23] MEDS: DOCUSATE SODIUM 100 MG CAPSULE PO SCH ×2 (09:08→21:03)
[2019-02-23] MEDS: BISACODYL 5 MG TABLET.DR (DULCOLAX) PO SCH (09:08)
[2019-02-23] MEDS: POLYETHYLENE GLYCOL 3350, 17 GM/ POWD.PACK PO SCH (09:08)
[2019-02-23] MEDS: LACTULOSE 20 GM/30 ML UDC PO SCH (09:08)
[2019-02-23] MEDS: FLUoxetine HCL 10 MG CAPSULE (PROzac) PO SCH (09:08)
[2019-02-23] MEDS: MINERAL OIL/PETROLATUM,WHITE 113 GM CREAM.GM. TP SCH ×2 (09:22→21:08)
--- NOTE | 2019-02-23 09:26 | NUR ---
notes- pt tolerating clear liquid diet. no nausea and vomiting noted. oral meds crush given with pudding, pt tolerated well. denies any pain or discomfort at this time.
--- NOTE | 2019-02-23 12:30 | NUR ---
FEED PT WITH PUREED DIET. PT TOLERATED WELL. NO VOMITING NOTED.
[2019-02-23 12:31] VITALS: BP_SYST 105
[2019-02-23] MEDS: NACL 0.9% 1,000 ML IV SCH (12:45)
[2019-02-23] MEDS: POTASSIUM CHLORIDE 20 MEQ TAB.PRT.SR PO SCH (12:46)
--- NOTE | 2019-02-23 14:30 | NUR ---
NOTES- HAS LARGE AMOUNT OF LOOSE BM. Addendum: 02/23/19 at 1555 by Netta Asher RN CLEANED AND REPOSITIONED PATIENT.
--- NOTE | 2019-02-23 15:34 | NUR ---
DC Planning: Per CHARY Oconnell, dr. Stearns plan to discharge pt tomorrow, Monday if cleared by dr. Asher. CM notified pt's sister and LIZETH/Ely # [phone] who [facility]. For snf transfer if IV ABX is needed. She asked whether the IV ABX can be changed to PO. Kourtney is to verified with dr. Stearns for tomorrow discharge. IF snf transferred is needed: Ely requested #1 [facility] where is no bed available today per Trudy, but has male bed at the [facility]. Ely was looking in to it and would make decision after getting dr. Stearns and dr. Asher's decision. In addition, dr. Stearns ordered and made recommendation to transfer pt to [facility]. Ely does not want pt there due distant is too far from home. CM already faxed the referral inquiry to [facility] att[facility] [place] and later asked to hold the evaluation. CM left message to weekend CM to f/u with dr. Asher 's and to coordinate with sister/Ely for the discharge needs.
--- NOTE | 2019-02-23 15:55 | NUR ---
NOTES- ENDORSE CARE TO CHARY LUO TO CALL DR. RICK FOR JESUS D/C PLANNING ISSUE.
--- NOTE | 2019-02-23 16:00 | NUR ---
Care assumed. Has F/C and PICC line. on 3L Oximizer. IV 1/2 NS at 60ml/hr. SR on monitor. Call light in place, bed locked at the lowest position, bed alarm on, will continue to monitor.
[2019-02-23 16:30] VITALS: BP_SYST 140
--- NOTE | 2019-02-23 16:47 | NUR ---
Dr. Asher calls in. States patient is okay to go home per surgical standpoint.
--- NOTE | 2019-02-23 17:35 | NUR ---
Patient is turned and repositioned for comfort.
--- NOTE | 2019-02-23 18:57 | NUR ---
Dr. Stearns calls. He is informed that Dr. Asher clears patient on surgical standpoint.
--- NOTE | 2019-02-23 19:24 | NUR ---
Patient is being fed by [employer]. Report given to the incoming shift. All needs are attended.
--- NOTE | 2019-02-23 19:25 | NUR ---
Initial Note Received patient awake, alert, oriented and verbal responsive. VS stable. No SOB noted. Denies any pain or n/v at this time. On O2 at 2L/min via NC. IVF infusing connected to PICC line ALEXEI double lumen with dressing CDI. Skin intact, only scars noted. Edema BLE-elevated on pillows. Heels off bed and will reposition Q2 hrs. Patient lesa finished his dinner with the help of RESHMA Marks. Care and monitoring will be provided per protocol. Call light within reach. Bed alarm on and at lowest position at all times. Needs attended. Kept warm and comfortable.
[2019-02-23 20:00] VITALS: BP_SYST 139
[2019-02-23] MEDS: GABAPENTIN 300 MG CAPSULE PO SCH (21:03)
--- NOTE | 2019-02-23 21:03 | NUR ---
RN Note Due meds crushed and given with pudding, tolerated well. No bleeding noted. Repositioned. No BM. Changed pads and sheet. Skin care and applied barrier cream. Heels off bed and elevated with pillows. No complaints. Call light and phone within reach. Kept clean, dry and comfortable.
--- NOTE | 2019-02-23 23:00 | NUR ---
RN Note Patient awake and verbal responsive but slow. He said that he is so tired. Advised him to rest, turned off the light and put the tv volume down. Denies pain at this time. IVF infusing. Will continue to monitor,
[2019-02-24 00:53] VITALS: BP_SYST 164
--- NOTE | 2019-02-24 01:30 | NUR ---
RN Note Patient sleeping at this time. No distress noted. IVF infusing.
[2019-02-24] MEDS: NACL 0.9% 1,000 ML IV SCH ×2 (03:33→21:59)
--- NOTE | 2019-02-24 04:00 | NUR ---
RN Note Asleep but arousable. No SOB noted and denies pain. Repositioned. Heels off bed. Kept warm and comfortable.
--- NOTE | 2019-02-24 06:40 | NUR ---
End Note Afebrile. VS stable. No SOB, n/v or pain throughout the night. On O2 at 2L via NC. Paraplegic. Able to move his left arm but very weak. IVF infusing. Repositioned Q2 hours. Skin care provided. Vomited about 100 ml of food particles. Sponge bath given, changed clothes, sheets, gown and pillowcase. Care and monitoring provided per protocol. Call light within reach. Bed alarm on and at lowest position at all times. Needs attended. Kept warm and comfortable. DC plan to SNF.
[2019-02-24] MEDS: ONDANSETRON HCL 4 MG/2 ML VIAL IVP PRN ×3 (06:49→14:20)
--- NOTE | 2019-02-24 06:49 | NUR ---
N/V med Medicated for vomiting. Will endorse to AM CHARY.
[2019-02-24 08:00] VITALS: BP_SYST 125
[2019-02-24] MEDS: DOCUSATE SODIUM 100 MG CAPSULE PO SCH ×2 (08:52→22:03)
[2019-02-24] MEDS: OXYBUTYNIN CHLORIDE 5 MG TABLET PO SCH ×3 (08:52→21:59)
[2019-02-24] MEDS: ASPIRIN 81 MG TAB.CHEW PO SCH (08:52)
[2019-02-24] MEDS: LISINOPRIL 20 MG TABLET PO SCH (08:54)
[2019-02-24] MEDS: POLYETHYLENE GLYCOL 3350, 17 GM/ POWD.PACK PO SCH (08:55)
[2019-02-24] MEDS: TAMSULOSIN HCL 0.4 MG CAP PO SCH (08:55)
[2019-02-24] MEDS: LACTULOSE 20 GM/30 ML UDC PO SCH (08:55)
[2019-02-24] MEDS: FLUoxetine HCL 10 MG CAPSULE (PROzac) PO SCH (08:55)
[2019-02-24] MEDS: levETIRAcetam 500 MG TABLET PO SCH ×2 (08:55→21:59)
[2019-02-24] MEDS: BISACODYL 5 MG TABLET.DR (DULCOLAX) PO SCH (08:55)
[2019-02-24] MEDS: HEPARIN SODIUM,PORCINE 5000 UNITS/ML VIAL SUBCUT SCH ×2 (08:58→20:30)
[2019-02-24] MEDS: MINERAL OIL/PETROLATUM,WHITE 113 GM CREAM.GM. TP SCH ×2 (09:00→22:04)
--- NOTE | 2019-02-24 09:28 | NUR ---
Case mgt: Discharge planning in progress--Per daughter Ely, pt was on IV abx for 4 days at [facility] before being transferred to [facility], continued IV abx here for 8 more days. Ely indicates [facility] has 24 hr nurse and staff, pt not on 02 at longterm, but has lucy lift, hospital bed and is bedbound at longterm. Dr. Rush moise, nurse Maame and propellant charge zone assembler Radha are checking 02 sat on RA (Pt on 02 at 2L/NC currently). Also, checking with MD if pt needs further IV abx or can change to PO abx. TAWANA DIEZ
[2019-02-24] MEDS: POTASSIUM CHLORIDE 20 MEQ TAB.PRT.SR PO SCH (10:15)
[2019-02-24 11:24] VITALS: BP_SYST 140
--- NOTE | 2019-02-24 11:43 | NUR ---
Case mgt: Per nurse Radha, 02 sat is 89-90% on RA and she said Dr. Stearns is coming in to evaluate pt soon. Per pt's daughter Ely, pt has not been on 02 at [facility]. I LVM for Ely at [phone] to call me to verify which snf she prefers if pt is requiring SNF level of care for discharge. Ely said earlier today she [facility] if possible. Addendum: 02/24/19 at 1220 by Ayesha Silva RN Case mgt: Per Calvin's (CM) note from 02/23/19, dtrs #1 snf choice was [facility], but no bed available, and [facility] the [place] ([facility] facility to [facility]) has male bed. I called Trudy at [facility] [phone]-she still has male bed but needs snf packet faxed to her at fax#[phone]-packet faxing now.Per Trudy, Dr. Vargas goes to their snfs. Dtjaja Graves was aware Dr. Stearns was asking for pt to go to [facility]-waiting for return call from dtjaja Graves--TAWANA DIEZ
--- NOTE | 2019-02-24 13:04 | NUR ---
Pt noted with large amount of emesis. Airway clear. Linens changed. PRN medication administered for nausea.
--- NOTE | 2019-02-24 13:34 | NUR ---
Case mgt: Pt is vomiting--no discharge today--Daughter Ely will have the nurse/traffic administrator call our case mgt dept to determine if [facility] to [facility] on continuous 02. [address] Stearns, pt will most likely need continues oxygen for a while, needs PT for upper body strengthening, and breathing treatments and needs to be monitored closely at SNF vs [facility]. Dr. Stearns aware that [facility] has RN and PAPER PRODUCTS PRINTER per dtr Ely, but I had requested Ely have the RN from the [facility] call our cm to verify this. Dr. Stearns called dtr Ely to explain pt should go to snf short term and he will f/u tomorrow, as he wants to check KUB now that pt is vomiting. Trudy from [facility] sent the referral to her DON and is aware PT eval has been ordered-pt vomiting-Trudy will f/u with our cm tomorrow DH RN
[2019-02-24] MEDS ORDERED: IPRATROPIUM/ALBUTEROL SULFATE 3 ML AMPUL.NEB (DUONEB) INH PRN (14:00)
[2019-02-24] MEDS: METOCLOPRAMIDE HCL 10 MG/2 ML VIAL IVP PRN (14:08)
--- NOTE | 2019-02-24 14:12 | NUR ---
Dr. Stearns made aware of pt's emesis episodes x3. New orders made.
--- NOTE | 2019-02-24 14:13 | NUR ---
Page out to Dr. Yun. Spoke with exchange.
[2019-02-24] MEDS: HYDROcodone/ACETAMIN 5-325 MG TAB (NORCO/ VICODIN) PO PRN (14:20)
--- NOTE | 2019-02-24 14:20 | NUR ---
Paged MD Stearns, family requesting no PO pain meds all IV. Informed MD Stearns. No new order
[2019-02-24] MEDS ORDERED: POTASSIUM CHLORIDE 40 MEQ, LIDOCAINE JECT 2% PF 100 MG 50 MG in NS 250 ML IV ONE (14:45)
--- NOTE | 2019-02-24 14:45 | NUR ---
NG TUBE PLACEMENT: # 18 FR NG tube placed to left nare. Placement checked by auscultation of instilled air into stomach and aspiration of gastric contents verified with second RN. Tubing taped in place to prevent dislodging. Connected NGT to low continuous suction. Patient tolerated well. Noted about 500 ml immediate greenish brown output.
--- NOTE | 2019-02-24 15:30 | NUR ---
Update Pt states no distress at this time and states he feels better with NG tube and PRN pain medication. Noted 875 ml output of greenish brown gastric content to suction. Pt's abdomen noted getting less distended post insertion of NG tube.
[2019-02-24 15:32] VITALS: BP_SYST 134
--- NOTE | 2019-02-24 15:53 | NUR ---
Dr. Yun return call and was made aware of pt's emesis episodes. New orders made and carried out.
[2019-02-24 16:00] VITALS: BP_SYST 134
--- NOTE | 2019-02-24 16:30 | NUR ---
Pt states no pain or distress at this time.
[2019-02-24] MEDS: IPRATROPIUM/ALBUTEROL SULFATE 3 ML AMPUL.NEB (DUONEB) INH SCH ×3 (16:41→23:19)
[2019-02-24] MEDS: METOCLOPRAMIDE HCL 10 MG/2 ML VIAL IVP SCH (17:06)
--- NOTE | 2019-02-24 18:36 | NUR ---
Closing Pt asleep, no signs of distress noted. Equal chest rise and fall. NGT in place to suction. Will endorse plan of care to cage shift manager RN.
[2019-02-24] MEDS: GABAPENTIN 300 MG CAPSULE PO SCH (21:59)
--- NOTE | 2019-02-24 23:20 | NUR ---
PM SHIFT ASSESSMENT Received patient from night nurse. Pt resting in bed. No signs of SOB or acute distress noted. Safety precautions in place. Call light within reach. Will continue to monitor.
[2019-02-25] MEDS: METOCLOPRAMIDE HCL 10 MG/2 ML VIAL IVP SCH ×4 (00:46→18:24)
[2019-02-25 01:28] VITALS: BP_SYST 137
[2019-02-25] MEDS: IPRATROPIUM/ALBUTEROL SULFATE 3 ML AMPUL.NEB (DUONEB) INH SCH ×6 (03:48→23:26)
[2019-02-25] MEDS: MORPHINE 2 MG/ML INJ. SYRINGE IVP PRN (05:35)
--- NOTE | 2019-02-25 05:50 | NUR ---
Patient requesting pain medications for 7/10 back pain. PRN pain medications given per MD order. Will continue to monitor.
--- NOTE | 2019-02-25 06:15 | NUR ---
Spoke to patients sister, update given on patients current status.
[2019-02-25 06:25] LABS: BASOPHILS % (AUTO) 0.4 % (0.0-2.0); EOSINOPHILS # (AUTO) 0.3 K/uL (0.0-0.4); EOSINOPHILS % (AUTO) 2.8 % (0.0-4.0); HEMATOCRIT 37.8 % (36-54); HEMOGLOBIN 12.7 g/dL (14.0-18.0); LYMPHOCYTES # (AUTO) 2.5 K/uL (1.0-5.5); MEAN CORPUSCULAR HEMOGLOBIN 32 pg (27-31); MEAN CORPUSCULAR HGB CONC 34 % (32-36); MEAN CORPUSCULAR VOLUME 96 fL (79.0-98.0); MONOCYTES # (AUTO) 1.4 K/uL (0.0-1.0); MONOCYTES % (AUTO) 11.8 % (1.7-9.3); NEUTROPHILS # (AUTO) 7.5 K/uL (1.8-7.7); PLATELET COUNT (AUTO) 415 K/uL (130-430); RED BLOOD CELL COUNT(AUTO) 3.95 MIL/uL (4.2-6.2); RED CELL DISTRIBUTION WIDTH 14.3 % (9.0-15.0); WHITE BLOOD COUNT (AUTO) 11.8 K/uL (4.8-10.8)
[2019-02-25 07:21] LABS: CALCIUM 9.2 mg/dL (8.4-11.0); CREATININE 0.79 mg/dL (0.55-1.30); POTASSIUM 4.3 mmol/L (3.5-5.1)
--- NOTE | 2019-02-25 07:30 | NUR ---
ENDORSEMENT Pt care endorsed to dayshift RN at bedside using nursing SBAR.
[2019-02-25 08:00] VITALS: BP_SYST 139
[2019-02-25] MEDS ORDERED: BISACODYL 10 MG/SUPPOSITORY RC ONE (08:30)
--- NOTE | 2019-02-25 08:30 | NUR ---
ASSUMPTION OF CARE: RECEIVED PT AWAKE, NO S/S OF DISTRESS, NO INDICATION OF PAIN OR DISCOMFORT, VSS, AFEBRILE, NO C/O PAIN OR DISCOMFORT, IV SITE INTACT, PATENT, NO REDNESS OR SWELLING, ORIENTED TO UNIT, CALL LIGHT PLACED WITHIN REACH, WILL CON'T TO MONITOR AND ASSESS.
--- NOTE | 2019-02-25 09:00 | NUR ---
VETERINARIAN EPIDEMIOLOGIST: MORNING MEDS GIVEN PER ORDERED BY Dann, TOLERATED WELL, WILL CON'T TO MONITOR AND ASSESS.
[2019-02-25] MEDS: FLUoxetine HCL 10 MG CAPSULE (PROzac) PO SCH (09:36)
[2019-02-25] MEDS: BISACODYL 5 MG TABLET.DR (DULCOLAX) PO SCH (09:36)
[2019-02-25] MEDS: ASPIRIN 81 MG TAB.CHEW PO SCH (09:37)
[2019-02-25] MEDS: TAMSULOSIN HCL 0.4 MG CAP PO SCH (09:37)
[2019-02-25] MEDS: LISINOPRIL 20 MG TABLET PO SCH (09:40)
[2019-02-25] MEDS: DOCUSATE SODIUM 100 MG CAPSULE PO SCH ×2 (09:41→22:06)
[2019-02-25] MEDS: levETIRAcetam 500 MG TABLET PO SCH ×2 (09:41→22:06)
[2019-02-25] MEDS: LACTULOSE 20 GM/30 ML UDC PO SCH (09:42)
[2019-02-25] MEDS: POLYETHYLENE GLYCOL 3350, 17 GM/ POWD.PACK PO SCH (09:42)
[2019-02-25] MEDS: OXYBUTYNIN CHLORIDE 5 MG TABLET PO SCH ×3 (09:43→22:05)
[2019-02-25] MEDS: HEPARIN SODIUM,PORCINE 5000 UNITS/ML VIAL SUBCUT SCH ×2 (10:14→22:08)
[2019-02-25] MEDS: MINERAL OIL/PETROLATUM,WHITE 113 GM CREAM.GM. TP SCH ×2 (10:17→22:06)
--- NOTE | 2019-02-25 11:49 | NUR ---
DC PLANNING: CM ATTEMPTED TO CONTACT DARRYL (RN/RESEARCH SOFTWARE ENGINEER @ [facility] ) @ P REGARDING IF [facility] IS ABLE TO ACCEPT PATIENT ON CONTINUOUS OXYGEN, BREATHING TX, PT AND CONTINUOUS MONITORING. HOWEVER, DARRYL PHONE WAS NOT AVAILABLE. CM LEFT CALL BACK NUMBER. CM ALSO ATTEMPTED TO CONTACT [facility] COTTON PRESSER (NAZARIO FUENTES) @ P . HOWEVER, COTTON PRESSER WAS UNABLE TO ANSWER MEDICAL/NURSING QUESTIONS AND ADVICE TO CONTACT DARRYL. CM TO FOLLOW UP NEEDED.
[2019-02-25 12:23] VITALS: BP_SYST 132
--- NOTE | 2019-02-25 14:00 | NUR ---
NURSES NOTES: PT REMAINS STABLE, NO SIGNIFICANT CHANGES NOTED, REPOSITIONED FOR COMFORT, WILL CON'T WITH POC.
--- NOTE | 2019-02-25 14:20 | NUR ---
Nutrition F/U RD reviewed pt's current EMR including diet Hx, physician notes, nursing notes, pertinent labs/meds/procedures, care trends and care activity. Current Diet Order: NPO x 1 day Subjective information: Pt seen sleeping in bed at time of RD visit. IV infusing, NG tube to L nares set to intermittent suction. Per RN, pt vomitted 2x yesterday 02/24. Per bed huddle discussion, pt was scheduled for surgery on the , it was cancelled, then pt started to experience emesis once again, so NG tube was placed again. Last BM 02/25/19. Per EMR, PO intake 72% average of 3 meals 02/24. Pt is not yet meeting adequate nutrition. Current PO intake: Fair 72% Estimated Energy Expenditure (kcals/day) 9689-5633 kcal/day (25-30 kcal/kg Adj IBW for paraplegia (sepsis resolved per physician notes)) Estimated Protein Required (g/day) 54-67 gm/day (0.8-1 gm/kg Adj IBW for paraplegia (sepsis resolved per physician notes)) Estimated Fluid Required (l/day) 1.7-2 L/day (1 ml/kcal/day for maintenance) Problem/Etiology/Signs/Symptoms Increased nutritional needs related to metabolic demands as evidenced by estimated nutritional requirements for sepsis. *no longer applicable Suboptimal PO intakes related to possible lack of appetite associated w/ cognitive limitations as evidenced by negligible PO intake records. (*ongoing) Expected Outcomes/Goals - Monitor advancement of diet, appetite, and PO intakes w/ goal of pt meeting at least 75% of estimated nutritional needs, labs trending WNL, normal GI function, and skin integrity/wt maintenance Dietitian Recommendations * Recommend continuing NPO per MD. * If/when medically appropriate, advance diet. Follow Up High Risk: F/U in 2-3 days
[2019-02-25] MEDS: POTASSIUM CHLORIDE 20 MEQ TAB.PRT.SR PO SCH (14:24)
--- NOTE | 2019-02-25 14:28 | NUR ---
Dietitian Recommendations * Recommend continuing NPO per MD. * If/when medically appropriate, advance diet. Please see Nutrition F/U note for details. NEREIDA RONQUILLO
--- NOTE | 2019-02-25 14:46 | NUR ---
DR ASHER ( SURGEON ) Called and SW Dr Asher to give him update about patient condition. That patient started vomiting again and that lates KUB Xray is showing bowel obstruction, that a nasogastric tube was inserted. Per MD Dr Asher, he will see patient.
--- NOTE | 2019-02-25 15:33 | NUR ---
CASE MANAGEMENT: CM SPOKE WITH DARRYL (RN AT [facility]) @ [phone]. PER DARRYL, SHE WILL HAVE TO CHECK IF THEY ARE ABLE TO TAKE CARE OF PATIENT WITH CONTINUOUS OXYGEN. DARRYL STATED THEY DO NOT HAVE 24/7 RN, THEY HAVE ORACLE SOLUTIONS ARCHITECT THAT COMES ONLY 1-9PM, THE [employer] ARCHITECT CANNOT ADMINISTER IV ABX. THEY CAN ONLY ADMINISTER BREATHING TREATMENT TWICE A DAY. DARRYL WILL CALL CM BACK REGARDING CONTINUOUS OXYGEN. CM TO FOLLOW UP NEEDED.
[2019-02-25 16:25] VITALS: BP_SYST 146
--- NOTE | 2019-02-25 18:00 | NUR ---
END OF SHIFT: PT REMAINS STABLE, ENDORSED TO ETL INFORMATICA ARCHITECT NURSE, WILL CON'T WITH POC.
[2019-02-25] MEDS: NACL 0.9% 1,000 ML IV SCH (18:24)
--- NOTE | 2019-02-25 19:15 | NUR ---
initial notes: pt is awake, alert. holding the call light. no sign of distress and pain. no difficulty of breathing. pt left neck contracture, bilateral lower extremities contracture and both upper extremities is spastic when passive rom is done. pt has ngt tube inserted to left nares connected to continuos low suction- greenish fluid noted in suction canister. hypoactive bowel sound on all quadrants. no skin breakdown, redness seen on buttocks area. pt has picc line- dressing is clean intact and dry. ivf infusing well. needs attended. call light in reach. side rails up.low bed position. will follow-up.
[2019-02-25 21:44] VITALS: BP_SYST 144
--- NOTE | 2019-02-25 22:00 | NUR ---
notes: pt canister is full change to new one. reposition pt. tolerate well. needs attended, call light in reach. will follow-up.
[2019-02-25] MEDS: GABAPENTIN 300 MG CAPSULE PO SCH (22:05)
--- NOTE | 2019-02-26 | NUR ---
notes: pt is resting, no sob. not distress. stable. ngt canister has lesser drainage-now its more blocking machine tender green. reposition water. mouth care done. pt is follow-ing simple command. needs attended. side rails up. will follow-up.
[2019-02-26] MEDS: METOCLOPRAMIDE HCL 10 MG/2 ML VIAL IVP SCH ×4 (00:04→17:22)
[2019-02-26 01:15] VITALS: BP_SYST 137
--- NOTE | 2019-02-26 02:06 | NUR ---
sleeping, no distress. no sob, no pain. stable. ivf infusing well. needs attended. call light in reach. side rails up. low bed position. will follow up.
[2019-02-26] MEDS: IPRATROPIUM/ALBUTEROL SULFATE 3 ML AMPUL.NEB (DUONEB) INH SCH ×6 (03:50→23:00)
--- NOTE | 2019-02-26 04:00 | NUR ---
sleeping. no acute distress. no pain. stable. ngt on continues low suction. reposition. needs attended. call light in reach. will follow-up.
[2019-02-26] MEDS: NACL 0.9% 1,000 ML IV SCH (06:07)
--- NOTE | 2019-02-26 06:20 | NUR ---
pt is now awake, alert. watching tv. no pain. no sob. reposition. ngt had lesser drainage. call light in reach. needs attended. will follow-up.
[2019-02-26 06:25] LABS: BASOPHILS % (AUTO) 0.3 % (0.0-2.0); EOSINOPHILS # (AUTO) 0.3 K/uL (0.0-0.4); EOSINOPHILS % (AUTO) 1.9 % (0.0-4.0); HEMATOCRIT 37.1 % (36-54); HEMOGLOBIN 12.3 g/dL (14.0-18.0); LYMPHOCYTES # (AUTO) 2.1 K/uL (1.0-5.5); LYMPHOCYTES % (AUTO) 14.1 % (20.5-51.5); MEAN CORPUSCULAR HEMOGLOBIN 32 pg (27-31); MEAN CORPUSCULAR HGB CONC 33 % (32-36); MEAN CORPUSCULAR VOLUME 96 fL (79.0-98.0); MONOCYTES # (AUTO) 1.4 K/uL (0.0-1.0); MONOCYTES % (AUTO) 9.4 % (1.7-9.3); NEUTROPHILS # (AUTO) 11.2 K/uL (1.8-7.7); NEUTROPHILS % (AUTO) 74.3 % (40.0-70.0); PLATELET COUNT (AUTO) 444 K/uL (130-430); RED BLOOD CELL COUNT(AUTO) 3.87 MIL/uL (4.2-6.2); RED CELL DISTRIBUTION WIDTH 14.2 % (9.0-15.0)
[2019-02-26 06:43] LABS: CREATININE 0.57 mg/dL (0.55-1.30); POTASSIUM 4.2 mmol/L (3.5-5.1)
--- NOTE | 2019-02-26 07:00 | NUR ---
closing: pt is awake, alert. no pain, stable. ngt tube connected to continues low suction. picc line is intact and dry, ivf infusing. fuentes catheter remain lower than body level drain by gravity.needs attended the whole shift. will give bedside report to am rn.
[2019-02-26 07:05] LABS: WHITE BLOOD COUNT (AUTO) 15.1 K/uL (4.8-10.8)
--- NOTE | 2019-02-26 07:20 | NUR ---
opening note patient is resting in bed, finished his breathing treatment, patient is nonverbal and responds to name, nods head with simple commands, assessment completed, educated pharmaceutical salesperson light system and plan of care, patient nodded head in agreement, IV fluids running, fuentes in place, on 2L nasal cannula, NG tube in place connected to suction, no other needs at this time, fall/safety precautions in place.
[2019-02-26 08:00] VITALS: BP_SYST 153
[2019-02-26] MEDS: FLUoxetine HCL 10 MG CAPSULE (PROzac) PO SCH (08:56)
[2019-02-26] MEDS: POLYETHYLENE GLYCOL 3350, 17 GM/ POWD.PACK PO SCH (08:56)
[2019-02-26] MEDS: LACTULOSE 20 GM/30 ML UDC PO SCH (08:56)
[2019-02-26] MEDS: BISACODYL 5 MG TABLET.DR (DULCOLAX) PO SCH (08:57)
[2019-02-26] MEDS: levETIRAcetam 500 MG TABLET PO SCH ×2 (08:57→21:00)
[2019-02-26] MEDS: LISINOPRIL 20 MG TABLET PO SCH (08:58)
[2019-02-26] MEDS: TAMSULOSIN HCL 0.4 MG CAP PO SCH (08:58)
[2019-02-26] MEDS: DOCUSATE SODIUM 100 MG CAPSULE PO SCH ×2 (08:58→21:00)
[2019-02-26] MEDS: MINERAL OIL/PETROLATUM,WHITE 113 GM CREAM.GM. TP SCH ×2 (08:58→21:10)
[2019-02-26] MEDS: OXYBUTYNIN CHLORIDE 5 MG TABLET PO SCH ×3 (08:59→21:00)
[2019-02-26] MEDS: ASPIRIN 81 MG TAB.CHEW PO SCH (08:59)
[2019-02-26] MEDS: HEPARIN SODIUM,PORCINE 5000 UNITS/ML VIAL SUBCUT SCH ×2 (09:00→21:00)
--- NOTE | 2019-02-26 09:15 | NUR ---
medications patient is resting in bed, educated on medication uses and side effects, patient verbalized understanding, medication given through NG tube, patient tolerated well, no other needs at this time, IV fluids running, fall/safety and seizure precautions in place.
--- NOTE | 2019-02-26 10:03 | NUR ---
Surgical Consult Called and SW Dr Steven Asher. Order obtained for abdominal Xray abdomaen 2 view. Per MD , Surgery depends on the result of the XRAY
[2019-02-26] MEDS: CEFEPIME 1 GM in D5W 50 ML IV SCH ×2 (11:12→21:09)
--- NOTE | 2019-02-26 11:12 | NUR ---
scheduled antibiotic patient is resting in bed, educated on medication uses and side effects, no other needs at this time, fall/safety and seizure precautions in place, IV fluids running, brother at the bedside.
--- NOTE | 2019-02-26 12:30 | NUR ---
Dr Asher called back told him about the radiology results, ordered for consent for the surgery, patient's sister was called for consent.
[2019-02-26 12:40] VITALS: BP_SYST 152
[2019-02-26] MEDS: D5NS 1,000 ML IV SCH (12:50)
--- NOTE | 2019-02-26 12:50 | NUR ---
D5NS eleazar lion MD ordered new fluids for the patient, eleazar lion, fluids running fine through PICC, no other needs at this time, fall/safety and seizure precautions in place.
--- NOTE | 2019-02-26 15:15 | NUR ---
rounds patient is resting in bed, no signs of distress, OR called that the patient will have his surgery tonight, family will be informed, fall/safety and seizure precautions in place.
[2019-02-26] MEDS: KETOROLAC TROMETHAMINE 15 MG VIAL IVP PRN (15:42)
[2019-02-26 16:29] VITALS: BP_SYST 137
--- NOTE | 2019-02-26 17:22 | NUR ---
lin educated on medication use and side effects, patient nodded head, no other needs at this time, informed the patient about his surgery tonight and that I called his sister Ely about it and his brother will come visit him after it is done.
--- NOTE | 2019-02-26 18:39 | NUR ---
closing note patient is resting in bed, CHG bath was done, IV fluids running, fuentes in place, on 2L nasal cannula, NG tube in place connected to suction, no other needs at this time, fall/safety precautions in place, will endorse report to noc shift nurse about patient's surgery tonight and to call his sister Ely once he is out of surgery, fall/safety and seizure precautions in place.
[2019-02-26 20:00] VITALS: BP_SYST 163
--- NOTE | 2019-02-26 20:00 | NUR ---
Patient was awake, making eye contact, speaking few words and moving LUE purposefully. Patient has fuentes with blood tinged urine. PICC R uper arm with NS infusing @ 100cc/hour. O2 2 liters NC with O2 sat 94%.
[2019-02-26] MEDS: GABAPENTIN 300 MG CAPSULE PO SCH (21:00)
--- NOTE | 2019-02-26 22:12 | NUR ---
Patient to OR at this time : Received a call from Dr. Borrego -Anesthesiologist to bring the patient to OR since Dr. Asher is there already; Took Vital signs WA=489/78, HR 85, RR=20, O2 sat =94%, Temp=98 0F. Patient no sign of distress during transport.
[2019-02-26] MEDS ORDERED: ONDANSETRON HCL 4 MG/2 ML VIAL IVP PRN (22:15)
[2019-02-26] MEDS ORDERED: fentaNYL CITRATE/PF 100 MCG/2 ML AMP IVP PRN ×2 (22:15)
[2019-02-27] VITALS (26 sets, daily range): BP systolic 92–148
--- NOTE | 2019-02-27 00:30 | NUR ---
Patient transfer to ICU from PACU: Received a call from [facility] [employer] that patient will be transfer to ICU for close monitoring. Primary RN made aware.
--- NOTE | 2019-02-27 01:00 | NUR ---
TRANSFER Pt transferred from OR via [facility] gurney to ICU bed 4. Received report from OR nurse after OR nurse recovered patient. Pt had a exploratory laparotomy with lysis of adhesions in the OR. Pt received in stable condition. Pt intubated with vent settings: AC 12, TV 600, FIO2 100 and PEEP of 5. Pt tolerating settings well with O2 sats @ 97% and even and unlabored breathing. VSS with SR seen on the monitor. Pt has a ALEXEI picc line infusing lactated ringers. Dressing c/d/i. NG tube noted to pt's left nare connected to low int suction. Brandon cath noted draining urine to gravity. Bilateral SCD's noted to pt's lower extremities. Bed is locked and in lowest position, call light within reach, will continue to monitor.
[2019-02-27] MEDS: METOCLOPRAMIDE HCL 10 MG/2 ML VIAL IVP SCH ×5 (01:09→23:48)
--- NOTE | 2019-02-27 03:30 | NUR ---
Pt in bed resting comfortably, no signs of acute distress or discomfort noted. Will cont to monitor.
[2019-02-27] MEDS: KETOROLAC TROMETHAMINE 15 MG VIAL IVP PRN ×3 (03:31→16:56)
--- NOTE | 2019-02-27 04:10 | NUR ---
Oral care given to pt at this time. No signs of acute distress or discomfort noted. Bed is locked and in lowest position, call light within reach, will continue to monitor.
[2019-02-27] MEDS: IPRATROPIUM/ALBUTEROL SULFATE 3 ML AMPUL.NEB (DUONEB) INH SCH ×6 (04:32→23:17)
[2019-02-27] MEDS: D5NS 1,000 ML IV SCH ×2 (04:46→15:41)
[2019-02-27 06:05] LABS: BASOPHILS % (AUTO) 0.1 % (0.0-2.0); EOSINOPHILS # (AUTO) 0.1 K/uL (0.0-0.4); EOSINOPHILS % (AUTO) 0.3 % (0.0-4.0); HEMOGLOBIN 14.3 g/dL (14.0-18.0); LYMPHOCYTES # (AUTO) 1.2 K/uL (1.0-5.5); LYMPHOCYTES % (AUTO) 4.3 % (20.5-51.5); MEAN CORPUSCULAR HEMOGLOBIN 32 pg (27-31); MEAN CORPUSCULAR HGB CONC 33 % (32-36); MEAN CORPUSCULAR VOLUME 97 fL (79.0-98.0); MONOCYTES # (AUTO) 1.2 K/uL (0.0-1.0); MONOCYTES % (AUTO) 4.5 % (1.7-9.3); NEUTROPHILS % (AUTO) 90.8 % (40.0-70.0); PLATELET COUNT (AUTO) 502 K/uL (130-430); RED BLOOD CELL COUNT(AUTO) 4.46 MIL/uL (4.2-6.2); RED CELL DISTRIBUTION WIDTH 14.5 % (9.0-15.0); WHITE BLOOD COUNT (AUTO) 27.6 K/uL (4.8-10.8)
--- NOTE | 2019-02-27 06:10 | NUR ---
Pt in bed w/ eyes closed resting comfortably, no signs of acute distress or discomfort noted. Pt repositioned at this time, pt tolerated well, will cont to monitor.
[2019-02-27 06:42] LABS: ALBUMIN 2.2 g/dL (3.4-4.8); CALCIUM 9.1 mg/dL (8.4-11.0); CREATININE 0.66 mg/dL (0.55-1.30); TOTAL BILIRUBIN 0.9 mg/dL (0.0-1.0)
--- NOTE | 2019-02-27 07:20 | NUR ---
ENDORSEMENT Report given to CHARY Ray using SBAR format and pt care was endorsed. Pt in bed w/ eyes closed resting comfortably. No signs of acute distress or discomfort noted.
--- NOTE | 2019-02-27 07:28 | NUR ---
Opening Note Received bedside report from Brett DIEZ for continuation of care. Received patient resting in bed, no signs or symptoms of acute distress noted. Bed locked in lowest position and bed alarm on.
[2019-02-27] MEDS ORDERED: *TPN PER PHARMACY XX PRN (08:15)
--- NOTE | 2019-02-27 08:28 | NUR ---
RT NOTES FIO2 to 70% per ABG result and charge nurse Anabelle. No adverse reactions noted. Will monitor pt.
[2019-02-27 08:33] LABS: PHOSPHORUS 3.3 mg/dL (2.7-4.5)
[2019-02-27] MEDS: TAMSULOSIN HCL 0.4 MG CAP PO SCH (08:51)
[2019-02-27] MEDS: BISACODYL 5 MG TABLET.DR (DULCOLAX) PO SCH (08:51)
[2019-02-27] MEDS: POLYETHYLENE GLYCOL 3350, 17 GM/ POWD.PACK PO SCH (08:51)
[2019-02-27] MEDS: levETIRAcetam 500 MG TABLET PO SCH ×2 (08:51→20:11)
[2019-02-27] MEDS: ASPIRIN 81 MG TAB.CHEW PO SCH (08:51)
[2019-02-27] MEDS: OXYBUTYNIN CHLORIDE 5 MG TABLET PO SCH ×3 (08:51→20:11)
[2019-02-27] MEDS: FLUoxetine HCL 10 MG CAPSULE (PROzac) PO SCH (08:52)
[2019-02-27] MEDS: LISINOPRIL 20 MG TABLET PO SCH (08:52)
[2019-02-27] MEDS: DOCUSATE SODIUM 100 MG CAPSULE PO SCH ×2 (08:52→20:11)
[2019-02-27] MEDS: CEFEPIME 1 GM in D5W 50 ML IV SCH ×2 (08:53→20:10)
--- NOTE | 2019-02-27 09:37 | NUR ---
XRAY being performed at bedside.
--- NOTE | 2019-02-27 09:43 | NUR ---
Dr. Chavira in to see patient, examining at bedside. New orders received.
--- NOTE | 2019-02-27 09:50 | NUR ---
RT NOTES Vent settings to CPAP 5 PS10 50% per Dr Chavira's order. No adverse reactions noted. Will monitor pt.
[2019-02-27] MEDS: MINERAL OIL/PETROLATUM,WHITE 113 GM CREAM.GM. TP SCH ×2 (10:08→20:29)
--- NOTE | 2019-02-27 10:21 | NUR ---
Family at bedside. Updated on patient status and plan of care. Opportunity for questions, answered clearly and education provided.
--- NOTE | 2019-02-27 10:49 | NUR ---
Spoke with Dr. Chavira on the phone, received order to titrate FiO2 to 40%. RT made aware.
--- NOTE | 2019-02-27 10:50 | NUR ---
RT NOTES FIO2 to 40% per Dr Chavira's order. No adverse reactions noted. Will monitor pt.
--- NOTE | 2019-02-27 10:55 | NUR ---
Dr. Stearns at bedside examining patient. No new orders.
[2019-02-27] MEDS: ACETAMINOPHEN 325 MG TABLET PO PRN (11:39)
--- NOTE | 2019-02-27 11:50 | NUR ---
RT NOTES Extubated pt and placed on 2L NC per Dr Chavira's order. No respiratory distress noted. Pt. was sxn both orally and via ETT before extubation. Will monitor pt.
--- NOTE | 2019-02-27 11:53 | NUR ---
Patient extubated by RT per Dr. Chavria order. No signs or symptoms of acute distress. Patient tolerated well with minimal discomfort.
--- NOTE | 2019-02-27 14:44 | NUR ---
DC PLANNING Received call from Marimar RN @ [facility] ph [phone], that does not think will be able to take pt back, would need SNF first & see how he does. States will come in tomorrow & will speak w CM.
--- NOTE | 2019-02-27 15:00 | NUR ---
CHG/Wound Care CHG bath performed and wound care performed per guidelines. Patient cleaned, turned, and repositioned. No signs or symptoms of acute distress noted. Patient tolerated well with minimal discomfort.
--- NOTE | 2019-02-27 15:19 | NUR ---
Nutrition F/U RD reviewed pt's current EMR including diet Hx, physician notes, nursing notes, pertinent labs/meds/procedures, care trends and care activity. Current Diet Order: NPO x4 days TPN Support: TPN D40%, AA8.5% at 43 ml/hr via central line Provides: 877 kcal/day, 44 gm protein/day, 1032 ml total volume/day, and GIR: 1.39 gm CHO/kg/min Meets: 40% of lower end of estimated caloric needs and 55% of lower end of estimated protein needs Subjective information: Pt is POD 1 s/p lysis of adhesions/appendectomy. Pt was recently extubated today. NGT to L nares connected to suction. Canister fci filled with what appeared to be dark green output. Plans for TPN support to start tonight. Current PO intake: N/A NEW Estimated Energy Expenditure (kcals/day) 2885-4388 kcal/day (30-35 kcal/kg Adj IBW for paraplegia (67 kg)/surgical healing) NEW Estimated Protein Required (g/day) 80-101 gm/day (1.2-1.5 gm/kg Adj IBW for paraplegia (67 kg)/surgical healing) Estimated Fluid Required (l/day) 1.7-2 L/day (1 ml/kcal/day for maintenance) Problem/Etiology/Signs/Symptoms Increased nutritional needs related to metabolic demands as evidenced by estimated nutritional requirements for sepsis. *no longer applicable Suboptimal PO intakes related to possible lack of appetite associated w/ cognitive limitations as evidenced by negligible PO intake records. *ongoing Expected Outcomes/Goals - Monitor advancement of diet, appetite, and PO intakes w/ goal of pt meeting at least 75% of estimated nutritional needs, labs trending WNL, normal GI function, and skin integrity/wt maintenance Dietitian Recommendations * Recommend TPN D40%, AA8.5% at 80 ml/hr via central line Provides: 1632 kcal/day, 82 gm protein/day, 1920 ml total volume/day, and GIR: 2.6 gm CHO/kg/min Meets: 74% of lower end of estimated caloric needs and 103% of lower end of estimated protein needs Follow Up High Risk: F/U in 2-3 days
--- NOTE | 2019-02-27 15:37 | NUR ---
Dietitian Recommendations * Recommend TPN D40%, AA8.5% at 80 ml/hr via central line Provides: 1632 kcal/day, 82 gm protein/day, 1920 ml total volume/day, and GIR: 2.6 gm CHO/kg/min Meets: 74% of lower end of estimated caloric needs and 103% of lower end of estimated protein needs LP, RD Please refer to Nutrition F/U for details.
[2019-02-27] MEDS: SODIUM CHLORIDE IV SCH ×9 (17:01)
[2019-02-27] MEDS: TPN CENTRAL IV SCH ×9 (17:01)
[2019-02-27] MEDS: SODIUM ACETATE IV SCH ×9 (17:01)
[2019-02-27] MEDS: NA PHOS IV SCH ×9 (17:01)
[2019-02-27] MEDS: [UNRECOGNIZED DRUG - OTHER] IV SCH ×9 (17:01)
--- NOTE | 2019-02-27 19:15 | NUR ---
PM ASSESSMENT Pt in bed with eyes open resting comfortably. No signs of acute distress or discomfort noted. VSS with SR seen on the monitor. Pt on 2L O2 via NC, tolerating well w/ O2 sats @ 94% and even and unlabored breathing. Pt has a ALEXEI picc line, dressing c/d/i infusing D5NS @ 100 cc/hr and TPN @ 43 cc/hr. NG tube noted to pt's left nare connected to low int suction. Brandon cath noted draining urine to gravity. Bilateral scd's noted to pt's lower extremities. Pt doesn't verbalize any needs at this time. Bed is locked and in lowest position, call light within reach, will continue to monitor.
--- NOTE | 2019-02-27 19:17 | NUR ---
Endorsement Endorsed bedside report to Brett RN using SBAR approach for continuation of care.
--- NOTE | 2019-02-27 19:19 | NUR ---
TALKED TO SAVANNA FROM PHARMACY REGARDING THE NEED FOR GLUSOSCAN CHECKS SINCE PT WAS STARTED ON TPN TODAY AND SHE SAID NO NEED TO DO GLUCOSCAN ON THIS PT.ALSO ADDED THAT NOT ALL PT ON TPN NEEDS TO DO GLUCOSCAN.
[2019-02-27] MEDS: GABAPENTIN 300 MG CAPSULE PO SCH (20:11)
--- NOTE | 2019-02-27 21:00 | NUR ---
Padded side rails placed on patient's side rails per seizure precaution.
--- NOTE | 2019-02-27 22:10 | NUR ---
Pt in bed with eyes closed resting comfortably. No signs of acute distress or discomfort noted. Pt repositioned at this time, pt tolerated well. Bed is locked and in lowest position, call light within reach, will cont to monitor.
[2019-02-28] VITALS (20 sets, daily range): BP systolic 88–142
--- NOTE | 2019-02-28 00:15 | NUR ---
Pt in bed w/ eyes closed resting comfortably, no signs of acute distress or discomfort noted. Pt coughing a little at this time, oral suction rendered w/ small amount of thick secretions collected. Pt tolerated well, will cont to monitor.
[2019-02-28] MEDS: KETOROLAC TROMETHAMINE 15 MG VIAL IVP PRN ×4 (00:29→23:59)
[2019-02-28] MEDS: D5NS 1,000 ML IV SCH ×3 (02:46→23:15)
[2019-02-28] MEDS: IPRATROPIUM/ALBUTEROL SULFATE 3 ML AMPUL.NEB (DUONEB) INH SCH ×6 (03:19→23:43)
--- NOTE | 2019-02-28 04:52 | NUR ---
Pt in bed with eyes closed resting comfortably. No signs of acute distress or discomfort noted. Pt still on 2L O2 via nc, tolerating well with O2 sats @ 98% and even and unlabored breathing. Bed is locked and in lowest position call light within reach, will cont. to monitor.
[2019-02-28] MEDS: METOCLOPRAMIDE HCL 10 MG/2 ML VIAL IVP SCH ×4 (05:10→20:39)
[2019-02-28 05:39] LABS: BASOPHILS # (AUTO) 0.1 K/uL (0.0-0.2); BASOPHILS % (AUTO) 0.5 % (0.0-2.0); EOSINOPHILS # (AUTO) 0.3 K/uL (0.0-0.4); EOSINOPHILS % (AUTO) 2.3 % (0.0-4.0); HEMATOCRIT 35.9 % (36-54); HEMOGLOBIN 11.9 g/dL (14.0-18.0); LYMPHOCYTES % (AUTO) 15.4 % (20.5-51.5); MEAN CORPUSCULAR HEMOGLOBIN 32 pg (27-31); MEAN CORPUSCULAR HGB CONC 33 % (32-36); MEAN CORPUSCULAR VOLUME 96 fL (79.0-98.0); MONOCYTES # (AUTO) 1.3 K/uL (0.0-1.0); MONOCYTES % (AUTO) 10.1 % (1.7-9.3); NEUTROPHILS # (AUTO) 9.5 K/uL (1.8-7.7); NEUTROPHILS % (AUTO) 71.7 % (40.0-70.0); PLATELET COUNT (AUTO) 464 K/uL (130-430); RED BLOOD CELL COUNT(AUTO) 3.74 MIL/uL (4.2-6.2); RED CELL DISTRIBUTION WIDTH 14.4 % (9.0-15.0); WHITE BLOOD COUNT (AUTO) 13.2 K/uL (4.8-10.8)
[2019-02-28 05:51] LABS: ALBUMIN 1.6 g/dL (3.4-4.8); CREATININE 0.57 mg/dL (0.55-1.30); PHOSPHORUS 2.4 mg/dL (2.7-4.5); POTASSIUM 3.4 mmol/L (3.5-5.1); TOTAL BILIRUBIN 0.6 mg/dL (0.0-1.0)
--- NOTE | 2019-02-28 07:15 | NUR ---
ENDORSEMENT Report given to CHARY Velázquez using SBAR format and pt care was endorsed. No signs of acute distress or discomfort noted.
--- NOTE | 2019-02-28 07:30 | NUR ---
AM ASSESSMENT Pt received laying in bed with eyes open, no complaints of distress or pain at this time. Pt on 2L of oxygen via NC. SCDs placed on bilateral legs. Low intermittent suction to NG tube placed in left nare with green gastric in canister. Bed in lowest position and reoriented to call light.
[2019-02-28] MEDS ORDERED: DEXTROSE 50% JECT 50 ML DISP.SYRIN IVP PRN (08:00)
[2019-02-28] MEDS: CEFEPIME 1 GM in D5W 50 ML IV SCH ×2 (09:44→20:39)
[2019-02-28] MEDS: OXYBUTYNIN CHLORIDE 5 MG TABLET PO SCH ×3 (09:44→21:55)
[2019-02-28] MEDS: DOCUSATE SODIUM 100 MG CAPSULE PO SCH ×2 (09:44→20:39)
[2019-02-28] MEDS: BISACODYL 5 MG TABLET.DR (DULCOLAX) PO SCH (09:44)
[2019-02-28] MEDS: LISINOPRIL 20 MG TABLET PO SCH (09:44)
[2019-02-28] MEDS: TAMSULOSIN HCL 0.4 MG CAP PO SCH (09:44)
[2019-02-28] MEDS: ASPIRIN 81 MG TAB.CHEW PO SCH (09:44)
[2019-02-28] MEDS: levETIRAcetam 500 MG TABLET PO SCH ×2 (09:44→20:39)
[2019-02-28] MEDS: POLYETHYLENE GLYCOL 3350, 17 GM/ POWD.PACK PO SCH (09:45)
[2019-02-28] MEDS: FLUoxetine HCL 10 MG CAPSULE (PROzac) PO SCH (09:45)
[2019-02-28] MEDS: MINERAL OIL/PETROLATUM,WHITE 113 GM CREAM.GM. TP SCH ×2 (09:46→20:40)
[2019-02-28] MEDS: ACETAMINOPHEN 325 MG TABLET PO PRN (09:54)
--- NOTE | 2019-02-28 11:35 | NUR ---
manager corporate strategy Antonina - manager corporate strategy is bedside speaking to Marimar from [facility] coordinating care and discharge plan.
[2019-02-28] MEDS ORDERED: PROMETHAZINE INJ.Non-Formulary 25 MG/ML AMP IVP ONE (11:45)
[2019-02-28] MEDS ORDERED: KETOROLAC TROMETHAMINE 15 MG VIAL IVP ONE (11:45)
--- NOTE | 2019-02-28 11:50 | NUR ---
DC PLANNING Met rosalio Minaya from [facility] @ bedside. Will not be able to accept pt back after hospitalization, will require medical care they cannot provide, will need to go to SNF first. They will be able to take pt back after SNF depending on needs @ that time, they will eval pt @ SNF.
--- NOTE | 2019-02-28 13:32 | NUR ---
Monitoring pt on tele status until bed is available.
[2019-02-28] MEDS ORDERED: KCL 20 mEq in 100 mL (PREMIX) 100 ML IV ONE (14:00)
[2019-02-28] MEDS: metroNIDAZOLE 500 mg/NS 100 ML IV SCH ×2 (14:40→23:59)
--- NOTE | 2019-02-28 15:02 | NUR ---
CHG / Shave Pt provided CHG with partial linen change. Pt provided facial shave and hair wash with comb out.
[2019-02-28] MEDS: [UNRECOGNIZED DRUG - OTHER] IV SCH ×9 (15:10)
[2019-02-28] MEDS: NA PHOS IV SCH ×9 (15:10)
[2019-02-28] MEDS: TPN CENTRAL IV SCH ×9 (15:10)
[2019-02-28] MEDS: SODIUM CHLORIDE IV SCH ×9 (15:10)
[2019-02-28] MEDS: SODIUM ACETATE IV SCH ×9 (15:10)
--- NOTE | 2019-02-28 16:02 | NUR ---
Family Pt's brother in-law Kiran at bedside with pt. Personal belongings located in previous room TELE 116 given to brother in-law Kiran to take home items.
--- NOTE | 2019-02-28 17:18 | NUR ---
Report Report given to Brittnee prior to pts transfer to TELE
[2019-02-28] MEDS ORDERED: SODIUM ACETATE IV SCH ×10 (18:00)
[2019-02-28] MEDS ORDERED: K PHOS IV SCH ×10 (18:00)
[2019-02-28] MEDS ORDERED: [UNRECOGNIZED DRUG - OTHER] IV SCH ×10 (18:00)
[2019-02-28] MEDS ORDERED: SODIUM CHLORIDE IV SCH ×10 (18:00)
[2019-02-28] MEDS ORDERED: TPN CENTRAL IV SCH ×10 (18:00)
[2019-02-28] MEDS: FAT EMULSIONS 250 ML IV SCH (18:29)
--- NOTE | 2019-02-28 18:50 | NUR ---
Transfer Pt off unit transferred to room 116-B TELE with the help of Celena RN.
--- NOTE | 2019-02-28 19:01 | NUR ---
Transfer Note Patient was transferred from ICU to room 116-B. Patient is in stable condition. Will endorse care to the oncoming nurse.
--- NOTE | 2019-02-28 20:00 | NUR ---
PM SHIFT ASSESSMENT Received patient lying in bed, awake, verbal, no sob noted, on 02 2l NC, ngt to left nare connected to low intermittent suction, small amount of brown drainage noted, right upper arm picc noted with IVF @ 50 ml/hr, TPN @ 63 ml/hr and lipids @ 20 ml/hr. Mid abdomen incision with dressing intact and dry, no active bleeding noted, fuentes catheter secured and to gravity draining yellow urine. Patient on air mattress, repositioned and turned with pillow support, seizure pads to sidrails in place, safety and fall precautions in place, will monitor.
[2019-02-28] MEDS: GABAPENTIN 300 MG CAPSULE PO SCH (20:39)
--- NOTE | 2019-02-28 21:45 | NUR ---
RN ROUNDS Patient awake, verbal, in no distress, remains on 02 2L NC, due medications administered, patient repositioned and turned with pillow support, bilateral heels offloaded with pillow, seizure precautions in place, will closely monitor.
--- NOTE | 2019-02-28 22:47 | NUR ---
RN ROUNDS Patient awake, in no distress, no facial grimacing noted for pain, repositioned and turned with pillow support, bilateral heels offloaded with pillow support. Safety measures in place.
[2019-03-01 00:11] VITALS: BP_SYST 140
--- NOTE | 2019-03-01 02:02 | NUR ---
RN ROUNDS Patient sleeping, breathing even and unlabored, repositioned and turned with pillow support, safety measures in place, will monitor.
[2019-03-01] MEDS: IPRATROPIUM/ALBUTEROL SULFATE 3 ML AMPUL.NEB (DUONEB) INH SCH ×6 (03:31→23:16)
--- NOTE | 2019-03-01 04:34 | NUR ---
RN ROUNDS Patient awake, in no distress, watching tv, repositioned and turned with pillow support, no seizure activity noted, safety measures in place, will monitor.
[2019-03-01] MEDS: FAT EMULSIONS 250 ML IV SCH ×2 (05:37→17:20)
--- NOTE | 2019-03-01 06:25 | NUR ---
RN ROUNDS Patient resting quietly, in no distress, remains on 02 2l NC, due medications administered, blood sugar check this am of 143, no coverage needed, ngt intact and remains on low intermittent suction, patient repositioned and turned with pillow support, bilateral heel offloaded with pillow support, no seizure activity noted through out the shift, fall and safety measures maintained, will monitor until endorsed to am nurse.
--- NOTE | 2019-03-01 07:52 | NUR ---
Opening Note Report received from [facility] shift nurse. Patient is awake and is able to verbalize somewhat. Patient is bedbound. Seizure precautions are in place. RUE Picc line is in place running TPN, lipids, and IV fluids. Brandon cath is in place, draining abhi urine. NG tube is to left nares to low intermittent suction. Left abd dressing is intact. Original surgical dressing is in place. Bed is locked and in the lowest position. Will continue to monitor.
[2019-03-01 08:00] VITALS: BP_SYST 145
[2019-03-01 08:41] LABS: BASOPHILS # (AUTO) 0.1 K/uL (0.0-0.2); BASOPHILS % (AUTO) 0.9 % (0.0-2.0); EOSINOPHILS # (AUTO) 0.5 K/uL (0.0-0.4); EOSINOPHILS % (AUTO) 3.8 % (0.0-4.0); HEMOGLOBIN 11.7 g/dL (14.0-18.0); LYMPHOCYTES # (AUTO) 0.9 K/uL (1.0-5.5); LYMPHOCYTES % (AUTO) 7.8 % (20.5-51.5); MEAN CORPUSCULAR HEMOGLOBIN 31 pg (27-31); MEAN CORPUSCULAR HGB CONC 33 % (32-36); MEAN CORPUSCULAR VOLUME 96 fL (79.0-98.0); MONOCYTES # (AUTO) 1.7 K/uL (0.0-1.0); MONOCYTES % (AUTO) 13.9 % (1.7-9.3); NEUTROPHILS % (AUTO) 73.6 % (40.0-70.0); PLATELET COUNT (AUTO) 539 K/uL (130-430); RED BLOOD CELL COUNT(AUTO) 3.76 MIL/uL (4.2-6.2); RED CELL DISTRIBUTION WIDTH 14.3 % (9.0-15.0); WHITE BLOOD COUNT (AUTO) 12.2 K/uL (4.8-10.8)
[2019-03-01] MEDS: KETOROLAC TROMETHAMINE 15 MG VIAL IVP PRN ×2 (08:58→14:51)
[2019-03-01] MEDS: BISACODYL 5 MG TABLET.DR (DULCOLAX) PO SCH (09:02)
[2019-03-01] MEDS: METOCLOPRAMIDE HCL 10 MG/2 ML VIAL IVP SCH ×3 (09:02→23:24)
[2019-03-01] MEDS: levETIRAcetam 500 MG TABLET PO SCH ×2 (09:02→23:24)
[2019-03-01] MEDS: ASPIRIN 81 MG TAB.CHEW PO SCH (09:02)
[2019-03-01] MEDS: FLUoxetine HCL 10 MG CAPSULE (PROzac) PO SCH (09:02)
[2019-03-01] MEDS: POLYETHYLENE GLYCOL 3350, 17 GM/ POWD.PACK PO SCH (09:02)
[2019-03-01] MEDS: DOCUSATE SODIUM 100 MG CAPSULE PO SCH ×2 (09:02→21:00)
[2019-03-01] MEDS: TAMSULOSIN HCL 0.4 MG CAP PO SCH (09:02)
[2019-03-01] MEDS: LISINOPRIL 20 MG TABLET PO SCH (09:03)
[2019-03-01 09:07] LABS: ALBUMIN 1.8 g/dL (3.4-4.8); CALCIUM 7.9 mg/dL (8.4-11.0); CREATININE 0.63 mg/dL (0.55-1.30); PHOSPHORUS 1.8 mg/dL (2.7-4.5); POTASSIUM 3.8 mmol/L (3.5-5.1); TOTAL BILIRUBIN 0.3 mg/dL (0.0-1.0)
[2019-03-01] MEDS: OXYBUTYNIN CHLORIDE 5 MG TABLET PO SCH ×3 (09:11→21:00)
[2019-03-01] MEDS: CEFEPIME 1 GM in D5W 50 ML IV SCH ×2 (09:11→23:24)
[2019-03-01] MEDS: MINERAL OIL/PETROLATUM,WHITE 113 GM CREAM.GM. TP SCH ×2 (09:12→23:34)
--- NOTE | 2019-03-01 10:20 | NUR ---
Rounds Patient was cleaned and turned. Tolerated well.
--- NOTE | 2019-03-01 11:59 | NUR ---
Dressing Change Changed surgical dressing with Dr. Stearns. Surgical incision is intact. Polebridge, retention rods, and sutures are in place. Minor amount of dark drainage noted on the dressing. painted with Betadine and covered area with an occlusive dressing.
--- NOTE | 2019-03-01 12:00 | NUR ---
Wound Re-Evaluation: Late note for 1200 secondary to patient care. Wound Consult ordered for Low Fahad Score. Patient evaluated for a low Fahad score of a 15. Patient was awake, alert, oriented, and received in a [place] Bed with an IsoFlex MICHAEL mattress with low air-loss therapy. Patient needs assist to turn in bed. Recommend reposition patient side to side only every 2 hours with pillow support (place one pillow above buttock and one pillow below buttock to allow buttock to float freely (should be able to slide hand underneath buttock easily)). Elevate, off-load and float bilateral heels with one pillow lengthwise under each extremity at all times. Offload pressure areas with pillows for pressure re-distribution. Perform skin care and monitor skin integrity Q shift. Use moisture barrier cream on moisture susceptible areas QID and PRN for soiling. Maintain patient on a low air-loss mattress. Wound care performed by daysilft nurse. Assessment provided by CHARY Beaulieu. Abdominal surgical incision approximated, with retention sutures and cesar. Recommend continue per physician's orders. Skin assessment: 1. Right outer Buttock: Dry, flaky skin, present on admission. 2. Left Lower Buttock: Chronic wound, present on admission. 3. Sacral area: Blanchable erythema from IAD. Recommend: Cleanse involved areas with mild soap and water. Pat dry. Apply moisture barrier cream to involved areas. Perform site care 4 times a day, and as needed for soiling. 4. Right heel: Right heel and lower extremity have dry, flaky skin. 4. Left heel: Left heel and lower extremity have dry, flaky skin. Recommend continue: Apply Eucerin cream to involved areas. Perform site care twice a day, and as needed for soiling. 5. Cervical spine: Patient has left lateral flexion contracture where skin makes contact in between neck and shoulder. Recommend continue: Cleanse involved areas with mild soap and water. Pat dry. Insert Inter-Dry AG cloth into site. Perform site care daily, and change Inter-Dry AG cloth every 5 days, and as needed for cloth soiling.
--- NOTE | 2019-03-01 12:03 | NUR ---
Blood Sugar Blood sugar is 146, no coverage needed.
[2019-03-01] MEDS: metroNIDAZOLE 500 mg/NS 100 ML IV SCH (12:18)
[2019-03-01 12:40] VITALS: BP_SYST 134
--- NOTE | 2019-03-01 14:30 | NUR ---
Rounds Patient is sleeping in bed. Eyes are closed.
[2019-03-01] MEDS: 0.45% NACL 1,000 ML IV SCH (14:51)
--- NOTE | 2019-03-01 15:20 | NUR ---
Deep Suction Patient was very moist and unable to cough. Deep suction done at this time.
[2019-03-01 15:37] VITALS: BP_SYST 134
--- NOTE | 2019-03-01 16:20 | NUR ---
Rounds Patient was cleaned and turned. Tolerated well.
[2019-03-01 16:45] VITALS: BP_SYST 130
[2019-03-01] MEDS ORDERED: [UNRECOGNIZED DRUG - OTHER] IV SCH ×11 (18:00)
[2019-03-01] MEDS ORDERED: SODIUM CHLORIDE IV SCH ×11 (18:00)
[2019-03-01] MEDS ORDERED: SODIUM ACETATE IV SCH ×11 (18:00)
[2019-03-01] MEDS ORDERED: TPN CENTRAL IV SCH ×11 (18:00)
[2019-03-01] MEDS ORDERED: K PHOS IV SCH ×11 (18:00)
--- NOTE | 2019-03-01 18:44 | NUR ---
Closing Note' Patient is resting in bed. RUE PICC line is running TPN at 75ml, Lipids at 10ml, and IVF at 50. Brandon cath remains in place draining abhi urine. NJ tube is to the left nares to low intermittent suction. Abd incision is dry and intact. Seizure and aspiration precaution remain in place. Will endorse care to the oncoming nurse.
[2019-03-01 20:00] VITALS: BP_SYST 152
[2019-03-01] MEDS: GABAPENTIN 300 MG CAPSULE PO SCH (23:24)
[2019-03-02] MEDS: metroNIDAZOLE 500 mg/NS 100 ML IV SCH ×2 (00:52→12:31)
[2019-03-02 02:00] VITALS: BP_SYST 165
--- NOTE | 2019-03-02 03:00 | NUR ---
DR MERLINE Stearns notified regarding elevated temp, orders received. 1. culture incision 2. blood culture X2 3. urine culture & UA 4. Lactic Acid X2 5. Bokoshe 10mg-325mg i tab Q4 HR PRN for pain (4-6) 6. Toradol 30mg IV Q 6 HR PRN for pain(1-3)
[2019-03-02] MEDS ORDERED: KETOROLAC TROMETHAMINE 30 MG VIAL IVP PRN (03:15)
[2019-03-02 03:56] LABS: ALBUMIN 1.7 g/dL (3.4-4.8); CALCIUM 7.6 mg/dL (8.4-11.0); CREATININE 0.57 mg/dL (0.55-1.30); POTASSIUM 3.4 mmol/L (3.5-5.1); TOTAL BILIRUBIN 0.3 mg/dL (0.0-1.0)
[2019-03-02] MEDS: IPRATROPIUM/ALBUTEROL SULFATE 3 ML AMPUL.NEB (DUONEB) INH SCH ×6 (04:33→23:12)
[2019-03-02] MEDS: ACETAMINOPHEN 325 MG TABLET PO PRN (04:56)
[2019-03-02 05:28] LABS: BILIRUBIN,URINE NEGATIVE (NEGATIVE); BLOOD, URINE NEGATIVE (NEGATIVE); CLARITY/URINE CLEAR (CLEAR); COLOR,URINE YELLOW (YELLOW); GLUCOSE,URINE NEGATIVE (NEGATIVE); KETONES,URINE NEGATIVE (NEGATIVE); LEUKOCYTE ESTERASE ,URINE NEGATIVE (NEGATIVE); NITRITE, URINE NEGATIVE (NEGATIVE); PROTEIN URINE TRACE (NEGATIVE); UROBILINOGEN,URINE 0.2 (0.2-1.0)
[2019-03-02 05:33] LABS: BACTERIA,URINE FEW /HPF (None Seen); RBC,URINE 0-3 /HPF (0-3); WBC,URINE 0-3 /HPF (0-3)
[2019-03-02] MEDS: FAT EMULSIONS 250 ML IV SCH ×2 (07:04→20:00)
--- NOTE | 2019-03-02 08:00 | NUR ---
AM ASSESSMENT. PT AFEBRILE, REPOSITIONED IN BED, CONTRACTURES TO ALL EXTREMITIES, SKIN WASHED WITH WET TOWEL FOR COMFORT, LINEN CHANGED, MADE PT CLEAN AND COMFORTABLE.
[2019-03-02] MEDS: CEFEPIME 1 GM in D5W 50 ML IV SCH ×2 (10:03→21:52)
[2019-03-02] MEDS: TAMSULOSIN HCL 0.4 MG CAP PO SCH (10:04)
[2019-03-02] MEDS: ASPIRIN 81 MG TAB.CHEW PO SCH (10:04)
[2019-03-02] MEDS: POLYETHYLENE GLYCOL 3350, 17 GM/ POWD.PACK PO SCH (10:04)
[2019-03-02] MEDS: DOCUSATE SODIUM 100 MG CAPSULE PO SCH ×2 (10:04→21:53)
[2019-03-02] MEDS: levETIRAcetam 500 MG TABLET PO SCH ×2 (10:04→21:53)
[2019-03-02] MEDS: BISACODYL 5 MG TABLET.DR (DULCOLAX) PO SCH (10:04)
[2019-03-02] MEDS: LISINOPRIL 20 MG TABLET PO SCH (10:05)
[2019-03-02] MEDS: FLUoxetine HCL 10 MG CAPSULE (PROzac) PO SCH (10:05)
[2019-03-02] MEDS: METOCLOPRAMIDE HCL 10 MG/2 ML VIAL IVP SCH ×3 (10:05→21:53)
[2019-03-02] MEDS: MINERAL OIL/PETROLATUM,WHITE 113 GM CREAM.GM. TP SCH ×2 (10:05→21:53)
[2019-03-02] MEDS ORDERED: POTASSIUM CHLORIDE 40 MEQ in NS 250 ML IV ONE (10:30)
[2019-03-02 11:39] VITALS: BP_SYST 142
[2019-03-02] MEDS: OXYBUTYNIN CHLORIDE 5 MG TABLET PO SCH ×3 (12:25→21:52)
[2019-03-02] MEDS: HYDROcodone/ACETAMIN 10-325 MG TAB PO PRN (12:26)
--- NOTE | 2019-03-02 12:26 | NUR ---
PAIN. PT COMPLAINED OF A HEADACHE, AFTER COUGHING, SUCTIONED VIA YANKAUER NEEDED, ORAL CARE DONE, ADMINISTERED 1 TABLET NORCO 10 MG VIA NGT.
--- NOTE | 2019-03-02 15:00 | NUR ---
SKIN CARE. TURNED PT GENTLY, HAD SMALL AMOUNT OF LOOSE BM, GARK GREENISH-BROWN, PERINEAL HYGIENE DONE, EUCERIN TO BUTTOCKS APPLIED. DRESSING FROM ABDOMEN REMOVED, OUTER DRESSING HAS LIGHT YELLOW STAIN, PUNGENT ODOR, CLEANSED INCISION WITH MOIST GAUZE, PAT DRY, SURE PREP CAREFULLY SCRUBBED OVER OUTER PART OF THE INCISION, ABD PADS TO COVER AND TRANSPARENT DRESSING ATTACHED.
[2019-03-02 15:37] VITALS: BP_SYST 131
--- NOTE | 2019-03-02 16:47 | NUR ---
Nutrition F/U RD reviewed pt's current EMR including diet Hx, physician notes, nursing notes, pertinent labs/meds/procedures, care trends and care activity. Current Diet Order: NPO x4 days TPN Support: TPN D40%, AA8.5% at 50 ml/hr, IL20% at 20 ml/hr via central line Provides: 1980 kcal/day, 51 gm protein/day, 1440 ml total volume/day, and GIR: 1.6 gm CHO/kg/min Meets: 98% of lower end of estimated caloric needs and 64% of lower end of estimated protein needs Subjective information: Pt is POD 3 s/p lysis of adhesions/appendectomy. Pt seen resting in bed, NGT to L nares connected to suction. Canister filled w/ 900 ml of dark output. Current PO intake: N/A NEW Estimated Energy Expenditure (kcals/day) 8556-4295 kcal/day (30-35 kcal/kg Adj IBW for paraplegia (67 kg)/surgical healing) NEW Estimated Protein Required (g/day) 80-101 gm/day (1.2-1.5 gm/kg Adj IBW for paraplegia (67 kg)/surgical healing) Estimated Fluid Required (l/day) 1.7-2 L/day (1 ml/kcal/day for maintenance) Problem/Etiology/Signs/Symptoms Increased nutritional needs related to metabolic demands as evidenced by estimated nutritional requirements for sepsis. *no longer applicable Suboptimal PO intakes related to possible lack of appetite associated w/ cognitive limitations as evidenced by negligible PO intake records. *ongoing Expected Outcomes/Goals - Monitor advancement of diet, appetite, and PO intakes w/ goal of pt meeting at least 75% of estimated nutritional needs, labs trending WNL, normal GI function, and skin integrity/wt maintenance Dietitian Recommendations * Recommend TPN D40%, AA8.5% at 80 ml/hr, IL20% at 10 ml/hr via central line Provides: 2112 kcal/day, 82 gm protein/day, 2160 ml total volume/day, and GIR: 2.6 gm CHO/kg/min Meets: 105% of lower end of estimated caloric needs and 103% of lower end of estimated protein needs Follow Up High Risk: F/U in 2-3 days
--- NOTE | 2019-03-02 16:53 | NUR ---
Dietitian Recommendations * Recommend TPN D40%, AA8.5% at 80 ml/hr, IL20% at 10 ml/hr via central line Provides: 2112 kcal/day, 82 gm protein/day, 2160 ml total volume/day, and GIR: 2.6 gm CHO/kg/min Meets: 105% of lower end of estimated caloric needs and 103% of lower end of estimated protein needs LP, RD Please refer to Nutrition F/U for details.
[2019-03-02] MEDS: 0.45% NACL 1,000 ML IV SCH (17:58)
[2019-03-02] MEDS ORDERED: K PHOS IV SCH ×11 (18:00)
[2019-03-02] MEDS ORDERED: SODIUM ACETATE IV SCH ×11 (18:00)
[2019-03-02] MEDS ORDERED: 0.45% NACL 1,000 ML IV SCH (18:00)
[2019-03-02] MEDS ORDERED: [UNRECOGNIZED DRUG - OTHER] IV SCH ×11 (18:00)
[2019-03-02] MEDS ORDERED: SODIUM CHLORIDE IV SCH ×11 (18:00)
[2019-03-02] MEDS ORDERED: TPN CENTRAL IV SCH ×11 (18:00)
--- NOTE | 2019-03-02 18:02 | NUR ---
NURSING. TPN AT 50 ML PER HR, FSBS 103 MG/DL, LIPIDS AT 10 ML PER HR, PLUS 1/2 NS AT 30 ML PER HR, PT AWAKE, RESPONSIVE TO VERBAL STIMULI, NGT TO LIS.
--- NOTE | 2019-03-02 19:15 | NUR ---
PM SHIFT ASSESSMENT Pt is awake and alert. Pt resting in bed. No signs of SOB or acute distress noted. O2 via NC @ 2L. NG tube to suction with green output. IVF, TPN and Lipids infusing to ALEXEI PICC. Skin warm and dry. Abdominal dressings in place, C/D/I. Safety precautions in place. Call light within reach. Will continue to monitor.
[2019-03-02 20:00] VITALS: BP_SYST 130
[2019-03-02] MEDS: GABAPENTIN 300 MG CAPSULE PO SCH (21:52)
[2019-03-02 23:48] VITALS: BP_SYST 130
[2019-03-03] MEDS: ACETAMINOPHEN 325 MG TABLET PO PRN ×2 (00:03→22:22)
[2019-03-03] MEDS: metroNIDAZOLE 500 mg/NS 100 ML IV SCH ×2 (00:03→13:08)
--- NOTE | 2019-03-03 01:05 | NUR ---
Pt resting in bed. VSS. Will continue to monitor.
[2019-03-03] MEDS: IPRATROPIUM/ALBUTEROL SULFATE 3 ML AMPUL.NEB (DUONEB) INH SCH ×6 (03:45→23:28)
[2019-03-03 06:12] LABS: ALBUMIN 1.6 g/dL (3.4-4.8); CALCIUM 7.8 mg/dL (8.4-11.0); CREATININE 0.58 mg/dL (0.55-1.30); PHOSPHORUS 2.6 mg/dL (2.7-4.5); POTASSIUM 3.7 mmol/L (3.5-5.1); TOTAL BILIRUBIN 0.3 mg/dL (0.0-1.0)
--- NOTE | 2019-03-03 07:18 | NUR ---
ENDORSEMENT Pt care endorsed to tanner DIEZ
--- NOTE | 2019-03-03 07:20 | NUR ---
Received report from CHARY Baig.
--- NOTE | 2019-03-03 07:30 | NUR ---
Head to Toe Assessment: 58 y/o male patient admitted for SBO and PNA. Arrived from [facility], Sister Ely Kemp contact. Alert, able to verbalize needs; denies pain or distress. Pupils are unequal. Responds to verbal stimuli, garbled speech. Mild confusion, calm and cooperative. Patient has TPN and Lipids per MD order. Patient given medication via NGT, NPO status at this time. Patient skin pink, warm, and dry. Face warm, afebrile at this time. Edema noted to bilateral lower extremities. Negative JVD. Respirations are even and crackles, moist breathe sounds noted bilaterally. Patient on 2L via nasal cannula, oxygen saturation in low to mid 90's. Apical pulse regular rate and rhythm: S1 S2 sounds noted, sinus tachycardia per newspaper manager. Abdomen soft and distended, dressing applied to anterior abdomen. Bowel sounds active in all quadrants. Patient has NGT to left nare, LIS. Maili nail beds with capillary refill <3 seconds. Peripheral pulses palpable in all 4 extremities. Patient has PICC line access, ALEXEI. Patient unable to ambulate. Brandon catheter in place, yellow clear urine noted, draining to gravity. Redness noted to gluteal folds, patient on low air loss mattress, q2H turns as ordered. Surgical dressing to anterior abdomen CDI. Side rails are up x2, bed in lowest position. SCDs for DVT prophylaxis. Call musa within reach. Encouraged to call if needs arise. Patient nods head in understanding. Will continue to follow up and monitor.
--- NOTE | 2019-03-03 07:40 | NUR ---
Upon assessment of patient, patient respiratory rate increased at 34/min. Patient oxygen saturation at 93% on 2L NC. Patient having wet lung sounds bilaterally. Called Dr. Burgos, orders received for Lasix 40mg IVP one time, CXR, and ABG. Called respiratory for ABG order. Will continue to follow up and monitor.
[2019-03-03] MEDS ORDERED: FUROSEMIDE 40 MG/4 ML VIAL IVP ONE (08:00)
[2019-03-03] MEDS: FAT EMULSIONS 250 ML IV SCH (08:11)
[2019-03-03] MEDS: CEFEPIME 1 GM in D5W 50 ML IV SCH ×2 (08:12→22:20)
[2019-03-03] MEDS: DOCUSATE SODIUM 100 MG CAPSULE PO SCH ×2 (08:17→21:00)
[2019-03-03] MEDS: TAMSULOSIN HCL 0.4 MG CAP PO SCH (08:17)
[2019-03-03] MEDS: OXYBUTYNIN CHLORIDE 5 MG TABLET PO SCH ×3 (08:17→21:00)
[2019-03-03] MEDS: METOCLOPRAMIDE HCL 10 MG/2 ML VIAL IVP SCH ×3 (08:17→22:21)
[2019-03-03] MEDS: BISACODYL 5 MG TABLET.DR (DULCOLAX) PO SCH (08:17)
[2019-03-03] MEDS: ASPIRIN 81 MG TAB.CHEW PO SCH (08:17)
[2019-03-03] MEDS: LISINOPRIL 20 MG TABLET PO SCH (08:18)
[2019-03-03] MEDS: POLYETHYLENE GLYCOL 3350, 17 GM/ POWD.PACK PO SCH (08:18)
[2019-03-03] MEDS: FLUoxetine HCL 10 MG CAPSULE (PROzac) PO SCH (08:18)
[2019-03-03] MEDS: levETIRAcetam 500 MG TABLET PO SCH ×2 (08:18→22:22)
[2019-03-03] MEDS: MINERAL OIL/PETROLATUM,WHITE 113 GM CREAM.GM. TP SCH (08:19)
--- NOTE | 2019-03-03 08:30 | NUR ---
Patient able to tolerate PO intake with water. Patient able to verbalize need for water. Patient having some coughing. NGT suction turned off for medication administration and absorption. Patient given IV lasix per MD orders. Patient has fuentes in place, and draining to gravity. Patient has current output of 750ml from NGT. Suction canister changed. Addendum: 03/03/19 at 1229 by Marta Pritchard RN Correction and amendment: Patient unable to tolerate PO intake, given water for swish and spit for moisture. Patient verbalizing need for water. Patient having some coughing at this time.
[2019-03-03] MEDS: ENOXAPARIN SODIUM 40 MG/0.4 ML SYRINGE SUBCUT SCH (09:44)
[2019-03-03] MEDS ORDERED: IOHEXOL 350 mgI/mL, 150 ML INFUS..BTL IV ONE (09:56)
--- NOTE | 2019-03-03 10:00 | NUR ---
Spoke with patients sister: Ely Richards to obtain consent for CTA chest. Consent obtained, called CT to inform.
--- NOTE | 2019-03-03 10:20 | NUR ---
Patient taken to CT via bed, Brent, charge nurse and planetarium technician escorted patient. Portable tele monitor placed, NG tube clamped, and oxygen tank transported with patient. Consent obtained prior to taking patient to exam. Will continue to follow up and monitor.
--- NOTE | 2019-03-03 10:50 | NUR ---
Patient returned from CT, informed they were unable to obtain complete exam, we will wait for results as read by radiologist. Patient NGT placed to suction per MD orders, IV remains patent, patient placed on 2L via NC. Patient vital signs are stable at this time, patients respiratory rate remains high, but crackles are decreased and oxygen saturation is at 94% on 2L via NC. MD to round on patient. Will continue to follow up and monitor.
[2019-03-03 11:35] VITALS: BP_SYST 134
--- NOTE | 2019-03-03 11:37 | NUR ---
Patient blood glucose level checked, 121mg/dl. No insulin needed at this time.
[2019-03-03] MEDS: 0.45% NACL 1,000 ML IV SCH (13:08)
--- NOTE | 2019-03-03 13:14 | NUR ---
Patient IVF changed and IV abx started per MD orders. Patient resting comfortably, needs are met at this time. Will continue to follow up and monitor.
--- NOTE | 2019-03-03 14:40 | NUR ---
Patients brother in law at bedside. He was updated on plan of care and patient status.
--- NOTE | 2019-03-03 14:59 | NUR ---
Patient repositioned upon pillow support. Patients heels floating. Patient needs are met at this time. Will continue to follow up and monitor.
--- NOTE | 2019-03-03 15:12 | NUR ---
Ditropalupillo held, spoke with MD regarding need for lasix and fluid overload with crackles. Held dose for fluid reduction.
[2019-03-03 15:16] LABS: BASOPHILS % (AUTO) 0.2 % (0.0-2.0); EOSINOPHILS % (AUTO) 0.6 % (0.0-4.0); HEMATOCRIT 35.3 % (36-54); HEMOGLOBIN 11.9 g/dL (14.0-18.0); LYMPHOCYTES # (AUTO) 0.9 K/uL (1.0-5.5); LYMPHOCYTES % (AUTO) 12.5 % (20.5-51.5); MEAN CORPUSCULAR HEMOGLOBIN 32 pg (27-31); MEAN CORPUSCULAR HGB CONC 34 % (32-36); MEAN CORPUSCULAR VOLUME 95 fL (79.0-98.0); MONOCYTES # (AUTO) 1.3 K/uL (0.0-1.0); MONOCYTES % (AUTO) 17.2 % (1.7-9.3); NEUTROPHILS # (AUTO) 5.1 K/uL (1.8-7.7); NEUTROPHILS % (AUTO) 69.5 % (40.0-70.0); PLATELET COUNT (AUTO) 508 K/uL (130-430); RED CELL DISTRIBUTION WIDTH 14.1 % (9.0-15.0); WHITE BLOOD COUNT (AUTO) 7.4 K/uL (4.8-10.8)
[2019-03-03 15:37] VITALS: BP_SYST 118
--- NOTE | 2019-03-03 16:26 | NUR ---
Patient sister at bedside, updated on plan of care and patient status.
--- NOTE | 2019-03-03 17:35 | NUR ---
Dr. Howard at bedside for exam of patient. Addendum: 03/03/19 at 1843 by Marta Pritchard RN He was made aware of heart rate between 110-130, also we gave furosemide 40mg, and IVF decreased to TKO rate. No additional orders at this time.
--- NOTE | 2019-03-03 17:53 | NUR ---
Patient TPN changed, IV tubing changed. Patient resting comfortably, needs are met at this time. Patient positioned for comfort. Will continue to follow up and monitor.
[2019-03-03] MEDS ORDERED: SODIUM CHLORIDE IV SCH ×12 (18:00)
[2019-03-03] MEDS ORDERED: K PHOS IV SCH ×12 (18:00)
[2019-03-03] MEDS ORDERED: SODIUM ACETATE IV SCH ×12 (18:00)
[2019-03-03] MEDS ORDERED: [UNRECOGNIZED DRUG - OTHER] IV SCH ×12 (18:00)
[2019-03-03] MEDS ORDERED: TPN CENTRAL IV SCH ×12 (18:00)
[2019-03-03 20:00] VITALS: BP_SYST 156
--- NOTE | 2019-03-03 20:00 | NUR ---
ASSESSMENT Pt lethargic, oriented to name & place. Left nare with Nasogastric tube, to low intermittent suction. Placement of tube checked, irrigated with air & auscultated placement. PICC line present right upper arm, no redness or swelling noted @ site. Abdominal incision with dressing intact, no drainage noted. Brandon cath in use, draining abhi color urine. Pt c/o abdominal incisional pain.
--- NOTE | 2019-03-03 20:30 | NUR ---
ELEVATED TEMP Cooling measures started.
[2019-03-03] MEDS ORDERED: CEFEPIME 1 GM/VIAL (MAXIPIME) ONE (22:20)
[2019-03-03] MEDS: GABAPENTIN 300 MG CAPSULE PO SCH (22:22)
[2019-03-03] MEDS: HYDROcodone/ACETAMIN 10-325 MG TAB PO PRN (22:23)
--- NOTE | 2019-03-03 23:45 | NUR ---
IV TUBEs IV tubing changed.
[2019-03-04] VITALS (20 sets, daily range): BP systolic 115–203
[2019-03-04] MEDS: FAT EMULSIONS 250 ML IV SCH ×3 (00:28→22:34)
[2019-03-04] MEDS: MINERAL OIL/PETROLATUM,WHITE 113 GM CREAM.GM. TP SCH ×3 (00:40→20:18)
[2019-03-04] MEDS: INSULIN REGULAR, HUMAN 100 UNITS/ML, 10 ML VIAL (humuLIN R) SUBCUT PRN (00:50)
[2019-03-04] MEDS: metroNIDAZOLE 500 mg/NS 100 ML IV SCH (00:52)
[2019-03-04] MEDS: IPRATROPIUM/ALBUTEROL SULFATE 3 ML AMPUL.NEB (DUONEB) INH SCH ×4 (04:38→19:00)
[2019-03-04 07:22] LABS: BASOPHILS # (AUTO) 0.1 K/uL (0.0-0.2); BASOPHILS % (AUTO) 1.1 % (0.0-2.0); EOSINOPHILS % (AUTO) 0.1 % (0.0-4.0); HEMATOCRIT 35.1 % (36-54); HEMOGLOBIN 11.8 g/dL (14.0-18.0); LYMPHOCYTES # (AUTO) 0.8 K/uL (1.0-5.5); LYMPHOCYTES % (AUTO) 9.3 % (20.5-51.5); MEAN CORPUSCULAR HEMOGLOBIN 33 pg (27-31); MEAN CORPUSCULAR HGB CONC 34 % (32-36); MONOCYTES # (AUTO) 1.5 K/uL (0.0-1.0); MONOCYTES % (AUTO) 17.3 % (1.7-9.3); NEUTROPHILS # (AUTO) 6.3 K/uL (1.8-7.7); NEUTROPHILS % (AUTO) 72.2 % (40.0-70.0); PLATELET COUNT (AUTO) 468 K/uL (130-430); RED BLOOD CELL COUNT(AUTO) 3.62 MIL/uL (4.2-6.2); RED CELL DISTRIBUTION WIDTH 14.2 % (9.0-15.0); WHITE BLOOD COUNT (AUTO) 8.8 K/uL (4.8-10.8)
[2019-03-04 07:27] LABS: ALBUMIN 1.7 g/dL (3.4-4.8); CALCIUM 8.1 mg/dL (8.4-11.0); CREATININE 0.46 mg/dL (0.55-1.30); PHOSPHORUS 2.6 mg/dL (2.7-4.5); POTASSIUM 3.5 mmol/L (3.5-5.1); TOTAL BILIRUBIN 0.4 mg/dL (0.0-1.0)
[2019-03-04 07:43] LABS: MEAN CORPUSCULAR VOLUME 97 fL (79.0-98.0)
--- NOTE | 2019-03-04 07:50 | NUR ---
Opening Note Report received from Chaya ZAMBRANO shift nurse. Patient is currently awake is able to open his eyes and communicate. NG tube is to the left nares to low intermittent suction. Output is dark green. Currently NPO. Brandon cath is to gravity draining concentrated yellow urine. RUE PICC line, double lumen is in place running 1/2NS@30, TPN@50, and Lipids@20. Abd dressing is in place, dry and intact. Fadi heard upon auscultation, current O2 sat is 93% on 2l NC. Seizure precautions are in place. Will continue to closely monitor.
--- NOTE | 2019-03-04 08:10 | NUR ---
Spoke with Spoke with Dr. Asher. Made MD aware that the patient has been having a fever and current output from the NG tube is 475. Made stated to clamp the NG tube and order an abd x-ray 2 views for tomorrow.
--- NOTE | 2019-03-04 08:52 | NUR ---
MD Rounds Dr. Howard and Dr. Armendariz are examining the patient at the bedside.
--- NOTE | 2019-03-04 09:05 | NUR ---
RN Note Patient has a current temp is 102.1. Cooling measures implemented. Patient was cleaned and turned at this time. Tolerated well.
--- NOTE | 2019-03-04 09:10 | NUR ---
ROUNDS PATIENT IN BED AWAKE. PATIENT IS TACHYPNIC AT 4O PER MIN. O2 SATS 97%. HR 111. tEMP 102.2. COOLING MEASURE IN PROGRESS. WILL
[2019-03-04] MEDS: BISACODYL 5 MG TABLET.DR (DULCOLAX) PO SCH (10:00)
[2019-03-04] MEDS ORDERED: NACL 0.9% 1,000 ML IV ONE ×4 (10:00→11:15)
[2019-03-04] MEDS: FLUoxetine HCL 10 MG CAPSULE (PROzac) PO SCH (10:00)
[2019-03-04] MEDS: DOCUSATE SODIUM 100 MG CAPSULE PO SCH ×2 (10:00→20:17)
[2019-03-04] MEDS: TAMSULOSIN HCL 0.4 MG CAP PO SCH (10:01)
[2019-03-04] MEDS: OXYBUTYNIN CHLORIDE 5 MG TABLET PO SCH ×3 (10:01→20:17)
[2019-03-04] MEDS: levETIRAcetam 500 MG TABLET PO SCH ×2 (10:01→20:17)
[2019-03-04] MEDS: LISINOPRIL 20 MG TABLET PO SCH (10:01)
[2019-03-04] MEDS: ASPIRIN 81 MG TAB.CHEW PO SCH (10:01)
[2019-03-04] MEDS: METOCLOPRAMIDE HCL 10 MG/2 ML VIAL IVP SCH ×3 (10:02→20:17)
[2019-03-04] MEDS: POLYETHYLENE GLYCOL 3350, 17 GM/ POWD.PACK PO SCH (10:02)
[2019-03-04] MEDS: ENOXAPARIN SODIUM 40 MG/0.4 ML SYRINGE SUBCUT SCH (10:11)
[2019-03-04] MEDS: CEFEPIME 1 GM in D5W 50 ML IV SCH (10:12)
--- NOTE | 2019-03-04 10:36 | NUR ---
PATIENT CONDITION LATE ENTRY DUE TO PATIENT CARE PATIENT CONDITION UNCHANGED. CALLED AND SW DR MEDEROS WHO GAVE ORDERS. SEPSIS PROTOCOL INITIATED. WHILE IN THE ROOM TO DION TADEO, DR BLANK CARE TO SEE PATIENT. 1 LITER OF NORMAL SALINE FOR NOW UNTIL MD IS FINISHED ASSESSING PATIENT. PATIENT WILL BE TRANSFERRED TO ICU FOR CLOSER MONITORING. SISTER WAS CALLED AND NOTIFIED OF TRANSFER
--- NOTE | 2019-03-04 10:40 | NUR ---
Transfer Note Transferred patient to the ICU per MD order. Report given to Ana DIEZ. Patient is awake, connected to night monitor. Bed locked and in the lowest position.
[2019-03-04] MEDS ORDERED: ACETAMINOPHEN 650 MG SUPP.RECT RC PRN (11:15)
[2019-03-04] MEDS ORDERED: VANCOMYCIN HCL 1,000 MG in NS 250 ML IV ONE (12:00)
[2019-03-04] MEDS ORDERED: PIPERACILLIN/TAZO 4.5GM/DEX-IS 100 ML IV ONE (12:00)
[2019-03-04] MEDS: NACL 0.9% 1,000 ML IV SCH ×2 (12:39→14:17)
--- NOTE | 2019-03-04 13:25 | NUR ---
Pt had a loose brown stool. Danica care done and pt has a little bit of redness to sacral area. Z guard applied. Extremities lifted off bed on pillows.
--- NOTE | 2019-03-04 13:30 | NUR ---
Report given to oncoming RN to assume care.
--- NOTE | 2019-03-04 13:30 | NUR ---
Endorsement Pt received from Sara DIEZ. Report given at bedside.
[2019-03-04] MEDS: VANCOMYCIN HCL 1,500 MG in NS 250 ML IV SCH (13:37)
--- NOTE | 2019-03-04 13:41 | NUR ---
Call out to Dr. Chavira regarding pts sudden onset of SOB. RR 40's 02 sats 83% on 4L NC. Pt changed to VM 50 %. LUgns with crackles bilaterally. HOB up. Pt has a congested cough and is able to bring up some secretions. BP elevated at 173/96. Pt states he feels SOB. Urine output approx 400cc dark bahi urine in fuentes bag after 3 L NS IV given. Antibiotics started. Will continue to monitor pt. Temp now 100.0.
--- NOTE | 2019-03-04 13:52 | NUR ---
2nd call out to Dr. Chavira.to report increased in 02 and SOB, tachycardia and BP.
--- NOTE | 2019-03-04 14:00 | NUR ---
Spoke with regarding pt. Orders left. CXR ordered and lasix given.
[2019-03-04] MEDS ORDERED: FUROSEMIDE 20 MG/2 ML VIAL IVP ONE ×2 (14:30→17:30)
--- NOTE | 2019-03-04 14:50 | NUR ---
Spoke with Dr. Asher regarding NG output zully yesterday, approx 2200cc and clarified if he still wants NG clamped. He said yes he wants it clamped and to do a 2 view abd xray.
[2019-03-04] MEDS ORDERED: [UNRECOGNIZED DRUG - OTHER] IV SCH ×12 (18:00)
[2019-03-04] MEDS ORDERED: K PHOS IV SCH ×12 (18:00)
[2019-03-04] MEDS ORDERED: SODIUM CHLORIDE IV SCH ×12 (18:00)
[2019-03-04] MEDS ORDERED: TPN CENTRAL IV SCH ×12 (18:00)
[2019-03-04] MEDS ORDERED: SODIUM ACETATE IV SCH ×12 (18:00)
--- NOTE | 2019-03-04 19:20 | NUR ---
Closing Notes Pt endorsed to Night RN using SBAR. RT at bedside obtaining sputum culture.
[2019-03-04 19:39] LABS: CALCIUM 8.1 mg/dL (8.4-11.0); CREATININE 0.59 mg/dL (0.55-1.30); POTASSIUM 3.9 mmol/L (3.5-5.1)
--- NOTE | 2019-03-04 19:40 | NUR ---
PM Assessement Pt in bed, AAO. ST shown on monitor. aware. Pt on Venturi Mask @50%. Pt tachypneic. BP stable. ALEXEI PICC line in place, C/D/I. No s/s of infiltration noted. Pt has TPN infusing @50cc/hr and lipids @20cc/hr. NGT in left nare clamped. Brandon catheter in place, draining clear, yellow urine to gravity. Bed locked in lowest position, call light in reach, and safety precautions in place. Will continue to monitor.
[2019-03-04] MEDS: GABAPENTIN 300 MG CAPSULE PO SCH (20:17)
[2019-03-04] MEDS: PIPERACILLIN/TAZO 4.5GM/DEX-IS 100 ML IV SCH (22:25)
[2019-03-05] VITALS (24 sets, daily range): BP systolic 102–147
--- NOTE | 2019-03-05 | NUR ---
ACCU-CHEK 149, NO INSULIN DUE PER SLIDING SCALE COV.
--- NOTE | 2019-03-05 00:20 | NUR ---
Endorsement Report given to RN at bedside via SBAR approach.
[2019-03-05] MEDS: INSULIN REGULAR, HUMAN 100 UNITS/ML, 10 ML VIAL (humuLIN R) SUBCUT PRN ×3 (00:47→11:54)
[2019-03-05] MEDS: VANCOMYCIN HCL 1,500 MG in NS 250 ML IV SCH ×3 (00:47→23:41)
[2019-03-05] MEDS: IPRATROPIUM/ALBUTEROL SULFATE 3 ML AMPUL.NEB (DUONEB) INH SCH ×4 (00:52→19:42)
--- NOTE | 2019-03-05 02:00 | NUR ---
SOUNDLY ASLEEP. NO DISTRESS NOTED.
--- NOTE | 2019-03-05 04:00 | NUR ---
SOUNDLY ASLEEP. NO DISTRESS NOTED.
[2019-03-05] MEDS: PIPERACILLIN/TAZO 4.5GM/DEX-IS 100 ML IV SCH ×3 (05:44→21:06)
--- NOTE | 2019-03-05 06:00 | NUR ---
UO GOOD. ACCU-CHEK 167, 2 UNITS REGULAR INSULIN SQ GIVEN PER SLIDING SCALE COV. REMAINS IN GUARDED CONDITION.
--- NOTE | 2019-03-05 07:10 | NUR ---
SHIFT CHANGE: Received SBAR report and plan of care from night RN
[2019-03-05 09:00] LABS: BASOPHILS # (AUTO) 0.1 K/uL (0.0-0.2); BASOPHILS % (AUTO) 0.8 % (0.0-2.0); HEMATOCRIT 34.3 % (36-54); HEMOGLOBIN 11.6 g/dL (14.0-18.0); LYMPHOCYTES # (AUTO) 1.6 K/uL (1.0-5.5); LYMPHOCYTES % (AUTO) 17.7 % (20.5-51.5); MEAN CORPUSCULAR HEMOGLOBIN 32 pg (27-31); MEAN CORPUSCULAR HGB CONC 34 % (32-36); MEAN CORPUSCULAR VOLUME 95 fL (79.0-98.0); MONOCYTES # (AUTO) 0.9 K/uL (0.0-1.0); MONOCYTES % (AUTO) 10.6 % (1.7-9.3); NEUTROPHILS # (AUTO) 6.2 K/uL (1.8-7.7); NEUTROPHILS % (AUTO) 70.9 % (40.0-70.0); PLATELET COUNT (AUTO) 405 K/uL (130-430); RED BLOOD CELL COUNT(AUTO) 3.63 MIL/uL (4.2-6.2); RED CELL DISTRIBUTION WIDTH 14.3 % (9.0-15.0); WHITE BLOOD COUNT (AUTO) 8.8 K/uL (4.8-10.8)
[2019-03-05] MEDS: BISACODYL 5 MG TABLET.DR (DULCOLAX) PO SCH (09:00)
[2019-03-05] MEDS: POLYETHYLENE GLYCOL 3350, 17 GM/ POWD.PACK PO SCH (09:00)
[2019-03-05] MEDS: DOCUSATE SODIUM 100 MG CAPSULE PO SCH ×2 (09:00→21:00)
[2019-03-05 09:14] LABS: ALBUMIN 1.7 g/dL (3.4-4.8); CALCIUM 7.5 mg/dL (8.4-11.0); CREATININE 0.84 mg/dL (0.55-1.30); PHOSPHORUS 2.4 mg/dL (2.7-4.5); POTASSIUM 3.2 mmol/L (3.5-5.1); TOTAL BILIRUBIN 0.4 mg/dL (0.0-1.0)
[2019-03-05] MEDS: METOCLOPRAMIDE HCL 10 MG/2 ML VIAL IVP SCH ×3 (09:15→21:05)
[2019-03-05] MEDS: FLUoxetine HCL 10 MG CAPSULE (PROzac) PO SCH (09:16)
[2019-03-05] MEDS: OXYBUTYNIN CHLORIDE 5 MG TABLET PO SCH ×3 (09:16→21:05)
[2019-03-05] MEDS: LISINOPRIL 20 MG TABLET PO SCH (09:16)
[2019-03-05] MEDS: TAMSULOSIN HCL 0.4 MG CAP PO SCH (09:16)
[2019-03-05] MEDS: levETIRAcetam 500 MG TABLET PO SCH ×2 (09:16→21:05)
[2019-03-05] MEDS: ASPIRIN 81 MG TAB.CHEW PO SCH (09:16)
[2019-03-05] MEDS: ENOXAPARIN SODIUM 40 MG/0.4 ML SYRINGE SUBCUT SCH (09:18)
[2019-03-05] MEDS: MINERAL OIL/PETROLATUM,WHITE 113 GM CREAM.GM. TP SCH ×2 (09:18→21:06)
--- NOTE | 2019-03-05 09:33 | NUR ---
Paged Dr. Walsh for orders, spoke with exchange.
--- NOTE | 2019-03-05 10:30 | NUR ---
LOOSE STOOL: Notified Dr Walsh of loose stoolMD ordered CDiff labs
[2019-03-05] MEDS: FAT EMULSIONS 250 ML IV SCH ×2 (10:41→22:54)
[2019-03-05] MEDS: NACL 0.9% 1,000 ML IV SCH ×2 (10:48→13:38)
--- NOTE | 2019-03-05 11:00 | NUR ---
LACTIC: Notified Dr Walsh of new lactic acid results, MD ordered IVF increased to 100ML/HR and a repeat Lactic in 4 hrs.
[2019-03-05] MEDS ORDERED: NALOXONE HCL 0.4 MG/ML AMP (NARCAN) ONE (11:34)
[2019-03-05] MEDS ORDERED: ONDANSETRON HCL 4 MG/2 ML VIAL IVP PRN (11:45)
[2019-03-05] MEDS ORDERED: MAGNESIUM SULFATE 50 ML IV PRN (11:45)
[2019-03-05] MEDS ORDERED: POTASSIUM CHLORIDE 40 MEQ in NS 250 ML IV ONE (11:45)
[2019-03-05] MEDS ORDERED: MORPHINE 2 MG/ML INJ. SYRINGE IVP PRN (11:45)
[2019-03-05] MEDS ORDERED: LORazepam 2 MG/ML VIAL IVP PRN (11:45)
[2019-03-05] MEDS ORDERED: ACETAMINOPHEN 325 MG TABLET PO PRN (11:45)
[2019-03-05] MEDS ORDERED: MUPIROCIN 2% TOPICAL OINTMENT 22 GM NS PRN (11:45)
[2019-03-05] MEDS ORDERED: POTASSIUM CHLORIDE 20 MEQ TAB.PRT.SR PO PRN (11:45)
[2019-03-05] MEDS ORDERED: DOCUSATE SODIUM 100 MG CAPSULE PO PRN (11:45)
[2019-03-05] MEDS ORDERED: ZOLPIDEM TARTRATE 5 MG TABLET PO PRN (11:45)
--- NOTE | 2019-03-05 12:00 | NUR ---
CHG: CHG bath given, gown and linens changed, patient tolerated well with minimal discomfort.
--- NOTE | 2019-03-05 12:30 | NUR ---
WOUND CARE: Wound care completed following wound care guidelines, dressing changed, patient tolerated well with minimal discomfort.
--- NOTE | 2019-03-05 13:23 | NUR ---
Nutrition F/U RD reviewed pt's current EMR including diet Hx, physician notes, nursing notes, pertinent labs/meds/procedures, care trends and care activity. Current Diet Order: NPO x 6 days TPN Support: D40% AA 10% at 50ml/hr, IL20% at 20ml/hr via Central line Provides: 2016 kcal, 60 gm protein and GIR 1.6 gm CHO/kg/min. Meets: 86% of upper end of estimated calories and 75% of lower end of estimated protein needs. Subjective information: Pt seen in bed, w/ RN at bedside providing care earlier today. Pt was awake, IV infusing at 20ml/hr and TPN and lipids infusing per MD orders. Per RN, pt is for abdominal x-ray today. Per nocturnal RN notes, pt had loose stools, brownish in color. Pt is meeting 75% of estimated calorie and protein needs. RD s/w pharmD earlier today for rec to increase infusion rate (Brice 03/05/19 0837) Current PO intake: N/A on NPO + TPN Estimated Energy Expenditure (kcals/day) 9222-9458 kcal/day (30-35 kcal/kg Adj IBW for paraplegia (67 kg)/surgical healing) Estimated Protein Required (g/day) 80-101 gm/day (1.2-1.5 gm/kg Adj IBW for paraplegia (67 kg)/surgical healing) Estimated Fluid Required (l/day) 1.7-2 L/day (1 ml/kcal/day for maintenance) Problem/Etiology/Signs/Symptoms Increased nutritional needs related to metabolic demands as evidenced by estimated nutritional requirements for sepsis. *no longer applicable Suboptimal PO intakes related to possible lack of appetite associated w/ cognitive limitations as evidenced by negligible PO intake records. *no longer applicable Expected Outcomes/Goals - Monitor TPN tolerance and intake w/ goal of pt meeting at least 75% of estimated nutritional needs, labs trending WNL, normal GI function, and skin integrity/wt maintenance Dietitian Recommendations * Recommend TPN D40%, AA10% at 80 ml/hr (goal), IL20% at 10 ml/hr via central line Provides: 2170 kcal/day, 96 gm protein/day, 2160 ml total volume/day, and GIR: 2.6 gm CHO/kg/min Meets: 93% of upper end of estimated caloric needs and 95% of upper end of estimated protein needs Follow Up High Risk: F/U in 2-3 days
--- NOTE | 2019-03-05 13:37 | NUR ---
Dietitian Recommendations * Recommend TPN D40%, AA10% at 80 ml/hr (goal), IL20% at 10 ml/hr via central line Provides: 2170 kcal/day, 96 gm protein/day, 2160 ml total volume/day, and GIR: 2.6 gm CHO/kg/min Meets: 93% of upper end of estimated caloric needs and 95% of upper end of estimated protein needs Please see Nutrition F/U note for details. CUSTODIAL, RD
[2019-03-05] MEDS ORDERED: SODIUM CHLORIDE IV SCH ×12 (18:00)
[2019-03-05] MEDS ORDERED: [UNRECOGNIZED DRUG - OTHER] IV SCH ×12 (18:00)
[2019-03-05] MEDS ORDERED: TPN CENTRAL IV SCH ×12 (18:00)
[2019-03-05] MEDS ORDERED: SODIUM ACETATE IV SCH ×12 (18:00)
--- NOTE | 2019-03-05 19:26 | NUR ---
ENDORSEMENT: Bedside SBAR report given and plan of care endorsed to night clerk auditor RN
--- NOTE | 2019-03-05 19:30 | NUR ---
Bedside report obtained from day shift nurse. NS, TPN and Lipids infusing well via ALEXEI PICC with the dressing dry and intact. Fall and safety precautions are in place.
[2019-03-05] MEDS: GABAPENTIN 300 MG CAPSULE PO SCH (21:05)
--- NOTE | 2019-03-05 21:06 | NUR ---
HS meds given. No distress noted.
--- NOTE | 2019-03-05 23:00 | NUR ---
Resting quietly in bed. IVF, TPN and Lipids infusing well. Fall, seizure and safety precautions are in place.
--- NOTE | 2019-03-05 23:42 | NUR ---
Accucheck 148 and no Insulin coverage noted. Skin remains warm and dry to touch.
[2019-03-06] VITALS (24 sets, daily range): BP systolic 107–168
[2019-03-06] MEDS: IPRATROPIUM/ALBUTEROL SULFATE 3 ML AMPUL.NEB (DUONEB) INH SCH ×4 (00:55→19:45)
--- NOTE | 2019-03-06 01:00 | NUR ---
Sleeping without any distress noted.
--- NOTE | 2019-03-06 03:00 | NUR ---
Pt is sleeping without any distress noted. No seizure activity noted.
[2019-03-06] MEDS: IPRATROPIUM/ALBUTEROL SULFATE 3 ML AMPUL.NEB (DUONEB) INH PRN ×2 (04:31→16:13)
--- NOTE | 2019-03-06 05:00 | NUR ---
Pt is resting quietly. Fall, seizure and safety precautions are in place.
[2019-03-06] MEDS: PIPERACILLIN/TAZO 4.5GM/DEX-IS 100 ML IV SCH ×3 (05:28→22:11)
[2019-03-06 05:34] LABS: EOSINOPHILS # (AUTO) 0.2 K/uL (0.0-0.4); EOSINOPHILS % (AUTO) 2.5 % (0.0-4.0); HEMATOCRIT 33.1 % (36-54); HEMOGLOBIN 11.2 g/dL (14.0-18.0); LYMPHOCYTES # (AUTO) 1.1 K/uL (1.0-5.5); LYMPHOCYTES % (AUTO) 12.3 % (20.5-51.5); MEAN CORPUSCULAR HEMOGLOBIN 32 pg (27-31); MEAN CORPUSCULAR HGB CONC 34 % (32-36); MEAN CORPUSCULAR VOLUME 95 fL (79.0-98.0); MONOCYTES # (AUTO) 3.1 K/uL (0.0-1.0); MONOCYTES % (AUTO) 34.6 % (1.7-9.3); NEUTROPHILS # (AUTO) 4.5 K/uL (1.8-7.7); NEUTROPHILS % (AUTO) 50.6 % (40.0-70.0); PLATELET COUNT (AUTO) 357 K/uL (130-430); RED CELL DISTRIBUTION WIDTH 14.4 % (9.0-15.0); WHITE BLOOD COUNT (AUTO) 8.8 K/uL (4.8-10.8)
[2019-03-06] MEDS: INSULIN REGULAR, HUMAN 100 UNITS/ML, 10 ML VIAL (humuLIN R) SUBCUT PRN ×2 (05:35→12:29)
--- NOTE | 2019-03-06 05:35 | NUR ---
Accucheck 156 and 2 units Regular Insulin given SQ. Skin remains warm and dry to touch. TPN, Lipids and IVF of NS are infusing well.
[2019-03-06 05:58] LABS: ALBUMIN 1.7 g/dL (3.4-4.8); CALCIUM 7.9 mg/dL (8.4-11.0); CREATININE 0.71 mg/dL (0.55-1.30); PHOSPHORUS 2.1 mg/dL (2.7-4.5); POTASSIUM 3.2 mmol/L (3.5-5.1); TOTAL BILIRUBIN 0.4 mg/dL (0.0-1.0)
[2019-03-06] MEDS: ACETAMINOPHEN 325 MG TABLET PO PRN (06:33)
--- NOTE | 2019-03-06 06:33 | NUR ---
Temp 102.1. Tylenol 650mg given via NGT. Ice packs applied to pt's axillae, forehead, chest and abdomen.
--- NOTE | 2019-03-06 07:15 | NUR ---
OPENING NOTE: SBAR report and plan of care received from cook night RN
--- NOTE | 2019-03-06 07:18 | NUR ---
REPORT GIVEN TO DAY SHIFT NURSE.
--- NOTE | 2019-03-06 08:30 | NUR ---
INCISION: Dr Asher at bedside, wanted dressing removed, said to clean with NS and keep open to air.
[2019-03-06] MEDS: NACL 0.9% 1,000 ML IV SCH (08:32)
[2019-03-06] MEDS: ASPIRIN 81 MG TAB.CHEW PO SCH (08:32)
[2019-03-06] MEDS: LISINOPRIL 20 MG TABLET PO SCH (08:33)
[2019-03-06] MEDS: levETIRAcetam 500 MG TABLET PO SCH ×2 (08:33→22:10)
[2019-03-06] MEDS: HYDROcodone/ACETAMIN 10-325 MG TAB PO PRN (08:34)
[2019-03-06] MEDS: OXYBUTYNIN CHLORIDE 5 MG TABLET PO SCH ×3 (08:34→21:00)
[2019-03-06] MEDS: TAMSULOSIN HCL 0.4 MG CAP PO SCH (08:34)
[2019-03-06] MEDS: FLUoxetine HCL 10 MG CAPSULE (PROzac) PO SCH (08:34)
[2019-03-06] MEDS: METOCLOPRAMIDE HCL 10 MG/2 ML VIAL IVP SCH ×3 (08:35→22:10)
[2019-03-06] MEDS: DOCUSATE SODIUM 100 MG CAPSULE PO SCH ×2 (08:35→21:00)
[2019-03-06] MEDS: BISACODYL 5 MG TABLET.DR (DULCOLAX) PO SCH (08:35)
[2019-03-06] MEDS: POLYETHYLENE GLYCOL 3350, 17 GM/ POWD.PACK PO SCH (08:35)
[2019-03-06] MEDS: MINERAL OIL/PETROLATUM,WHITE 113 GM CREAM.GM. TP SCH ×2 (08:36→22:11)
[2019-03-06] MEDS: ENOXAPARIN SODIUM 40 MG/0.4 ML SYRINGE SUBCUT SCH (08:37)
[2019-03-06] MEDS ORDERED: POTASSIUM CHLORIDE 40 MEQ in NS 250 ML IV ONE (10:30)
[2019-03-06] MEDS ORDERED: FUROSEMIDE 20 MG/2 ML VIAL IVP ONE (10:30)
[2019-03-06] MEDS: FAT EMULSIONS 250 ML IV SCH (10:53)
[2019-03-06] MEDS ORDERED: VANCOMYCIN HCL 1,750 MG in NS 500 ML IV SCH (11:48)
[2019-03-06] MEDS: VANCOMYCIN HCL 1,750 MG in NS 500 ML IV SCH (12:34)
--- NOTE | 2019-03-06 15:00 | NUR ---
S.T. SWALLOW EVAL SWALLOW EVAL COMPLETED. SISTER PRESENT. PT PRESENTS W/ PT PRESENTS W/ MOD ORAL AND SEV PHARYNGEAL DYSPHAGIA W/ INCREASED ORAL TRANSIT TIME, DELAYED SWALLOW, AND SEV COUGHING ON TSP HONEY THICK LIQUIDS. PT PRESENTS W/ POOR POSITIONING FOR FEEDING W/ NECK FLEXED SIDEWAY TO L SHOULDER. PT IS ALSO EXHIBITS SEVERE AND AUDIBLE CONGESTION EVEN W/O P.O.PT IS AT VERY HIGH RISK FOR ASPIRATION. REC: NPO - ALTERNATIVE METHOD FOR FEEDING. PT'S SISTER IN AGREEMENT W/ RESULTS AND REC. NURSE HERMILA NOTIFIED. G8996 CM G8997 CM G8998 CM NOMS LEVEL 2
--- NOTE | 2019-03-06 16:49 | NUR ---
MRSA SPUTUM: Dr Walsh notified of positive MRSA sputum results, ABX treatment is ongoing, no new orders at this time.
[2019-03-06] MEDS ORDERED: SODIUM CHLORIDE IV SCH ×11 (18:00)
[2019-03-06] MEDS ORDERED: SODIUM ACETATE IV SCH ×11 (18:00)
[2019-03-06] MEDS ORDERED: [UNRECOGNIZED DRUG - OTHER] IV SCH ×11 (18:00)
[2019-03-06] MEDS ORDERED: TPN CENTRAL IV SCH ×11 (18:00)
--- NOTE | 2019-03-06 19:20 | NUR ---
ENDORSEMENT: Gave SBAR report and endorsed plan of care to tsa screener RN
--- NOTE | 2019-03-06 20:00 | NUR ---
ASSESSMENT Pt alert/oriented to self & place. Pt lethargic, response to voice, by opening eyes. Oxygen in use venti mask 45%. O2 sat 92%. Nasogastric tube clamped. Placement checked by irrigating tube with air and auscultating placement. PICC line present right upper arm, dressing intact, no redness, or swelling noted @ site. Abdominal incision open to air, cesar and retention sutures all intact. Brandon cath in use, draining abhi color urine.
[2019-03-06] MEDS: GABAPENTIN 300 MG CAPSULE PO SCH (22:10)
[2019-03-07] VITALS (25 sets, daily range): BP systolic 104–164
[2019-03-07] MEDS: VANCOMYCIN HCL 1,750 MG in NS 500 ML IV SCH ×2 (00:56→12:19)
[2019-03-07] MEDS: FAT EMULSIONS 250 ML IV SCH ×2 (00:58→13:10)
[2019-03-07] MEDS: IPRATROPIUM/ALBUTEROL SULFATE 3 ML AMPUL.NEB (DUONEB) INH SCH ×4 (01:06→19:57)
--- NOTE | 2019-03-07 03:00 | NUR ---
i have received the pt's report per gill.i am to assume the care of the pt.for the remainder of the shift.pt.presents isolation status; +sputum.pt.presents picc line:rt.bicept;pt.receiving maintanance iv fluids,tpn/lipids.pt.presents fuentes catheter.pt.presents ng-tube; lt,.nares.
--- NOTE | 2019-03-07 04:00 | NUR ---
pt.assessed.pt.presents quiescent affect;calm,somnolent.v/s values w/in normal limits;02-sat%=98%. venti-mask re-positioned upon the pt's face.picc lone assessed;intact;patent;iv;fluid infusing.fuentes catheter assessed;intact;patent;urine content present.call light/telephone w/in the reach of the pt.
[2019-03-07] MEDS: NACL 0.9% 1,000 ML IV SCH (05:00)
[2019-03-07 05:36] LABS: BASOPHILS % (AUTO) 0.4 % (0.0-2.0); EOSINOPHILS % (AUTO) 0.5 % (0.0-4.0); HEMATOCRIT 28.7 % (36-54); HEMOGLOBIN 9.7 g/dL (14.0-18.0); LYMPHOCYTES # (AUTO) 1.2 K/uL (1.0-5.5); MEAN CORPUSCULAR HEMOGLOBIN 32 pg (27-31); MEAN CORPUSCULAR HGB CONC 34 % (32-36); MEAN CORPUSCULAR VOLUME 93 fL (79.0-98.0); MONOCYTES # (AUTO) 0.9 K/uL (0.0-1.0); MONOCYTES % (AUTO) 12.7 % (1.7-9.3); NEUTROPHILS # (AUTO) 5.2 K/uL (1.8-7.7); NEUTROPHILS % (AUTO) 70.4 % (40.0-70.0); PLATELET COUNT (AUTO) 314 K/uL (130-430); RED BLOOD CELL COUNT(AUTO) 3.08 MIL/uL (4.2-6.2); RED CELL DISTRIBUTION WIDTH 14.6 % (9.0-15.0); WHITE BLOOD COUNT (AUTO) 7.5 K/uL (4.8-10.8)
[2019-03-07 05:50] LABS: CALCIUM 7.6 mg/dL (8.4-11.0); CREATININE 0.64 mg/dL (0.55-1.30); PHOSPHORUS 2.3 mg/dL (2.7-4.5); POTASSIUM 3.7 mmol/L (3.5-5.1)
[2019-03-07] MEDS: PIPERACILLIN/TAZO 4.5GM/DEX-IS 100 ML IV SCH ×3 (06:11→21:23)
--- NOTE | 2019-03-07 06:29 | NUR ---
pt.assessed.pt.presents quiescent affect;clam,somnolent.v/s values w/in normal parameters. i have assessed the ng-tube;lt.nares.intact.i have assessed the fuentes catheter;intact;patent.urine content present.i have assessed the blood glucose;value:139mg/dl.respiratory status; slight labored;02-sat%=94%
--- NOTE | 2019-03-07 07:20 | NUR ---
Opening Note Patient received in bed, no signs of distress noted @ this time. Patient on cardiac surgeon with NSR. Patient on 40% venti mask breathing evenly and unlabored. Patient has a right upper PICC infusing TPN @ 20 ml/hr, lipids @ 20 ml/hr, and NS @ 50 ml/hr. Patient has a left nare NGT clamped, patent, and flushing well. Patient has a fuentes catheter draining yellow urine. Skin non-intact. Safety precautions enforced.
[2019-03-07] MEDS: DOCUSATE SODIUM 100 MG CAPSULE PO SCH ×2 (08:21→20:23)
[2019-03-07] MEDS: BISACODYL 5 MG TABLET.DR (DULCOLAX) PO SCH (08:21)
[2019-03-07] MEDS: FLUoxetine HCL 10 MG CAPSULE (PROzac) PO SCH (08:21)
[2019-03-07] MEDS: METOCLOPRAMIDE HCL 10 MG/2 ML VIAL IVP SCH ×3 (08:22→20:23)
[2019-03-07] MEDS: LISINOPRIL 20 MG TABLET PO SCH (08:22)
[2019-03-07] MEDS: levETIRAcetam 500 MG TABLET PO SCH ×2 (08:22→20:23)
[2019-03-07] MEDS: TAMSULOSIN HCL 0.4 MG CAP PO SCH (08:22)
[2019-03-07] MEDS: ASPIRIN 81 MG TAB.CHEW PO SCH (08:22)
[2019-03-07] MEDS: OXYBUTYNIN CHLORIDE 5 MG TABLET PO SCH ×3 (08:22→20:23)
[2019-03-07] MEDS: ENOXAPARIN SODIUM 40 MG/0.4 ML SYRINGE SUBCUT SCH (08:23)
[2019-03-07] MEDS: POLYETHYLENE GLYCOL 3350, 17 GM/ POWD.PACK PO SCH (08:23)
[2019-03-07] MEDS: MINERAL OIL/PETROLATUM,WHITE 113 GM CREAM.GM. TP SCH ×2 (08:24→20:23)
--- NOTE | 2019-03-07 11:30 | NUR ---
NOTES: Informed GI lab about bronchoscopy.
[2019-03-07] MEDS ORDERED: FUROSEMIDE 20 MG/2 ML VIAL IVP ONE (11:45)
--- NOTE | 2019-03-07 11:59 | NUR ---
Discharge Planning: DCP faxed pt referral to [facility] (f [phone] p [phone]) DCP to follow up. Addendum: 03/07/19 at 1514 by Maria Guadalupe Green DP Per [facility] (f [phone] p [phone]) pt accepted to at [facility]. Brenda asking which doctor to follow DCP made CM aware.
[2019-03-07] MEDS ORDERED: MIDAZOLAM HCL 5 MG/5 ML VIAL ONE ×2 (13:10)
[2019-03-07] MEDS ORDERED: fentaNYL CITRATE/PF 100 MCG/2 ML AMP ONE (13:11)
--- NOTE | 2019-03-07 13:11 | NUR ---
Wound Re-Evaluation: Wound Consult ordered for Low Fahad Score. Patient evaluated for a low Fahad score of a 13. Patient was awake, alert, oriented x 1, and received in a Maykel Bed with an IsoFlex MICHAEL mattress with low air-loss therapy. Patient needs assist to turn in bed. Recommend continue: Reposition patient side to side only every 2 hours with pillow support (place one pillow above buttock and one pillow below buttock to allow buttock to float freely (should be able to slide hand underneath buttock easily)). Elevate, off-load and float bilateral heels with one pillow lengthwise under each extremity at all times. Offload pressure areas with pillows for pressure re-distribution. Perform skin care and monitor skin integrity Q shift. Use moisture barrier cream on moisture susceptible areas QID and PRN for soiling. Maintain patient on a low air-loss mattress. Wound care performed by dayshift nurse. Assessment provided by CHARY Kam. Abdominal surgical incision approximated, with retention sutures and cesar. Recommend continue per physician's orders. Skin assessment: 1. Right outer Buttock: Dry, flaky skin, present on admission. 2. Left Lower Buttock: Chronic wound, present on admission. 3. Sacral area: Blanchable erythema from IAD. Recommend continue: Cleanse involved areas with mild soap and water. Pat dry. Apply moisture barrier cream to involved areas. Perform site care 4 times a day, and as needed for soiling. 4. Right heel: Right heel and lower extremity have dry, flaky skin. 4. Left heel: Left heel and lower extremity have dry, flaky skin. Recommend continue: Apply Eucerin cream to involved areas. Perform site care twice a day, and as needed for soiling. 5. Cervical spine: Patient has left lateral flexion contracture where skin makes contact in between neck and shoulder. Recommend continue: Cleanse involved areas with mild soap and water. Pat dry. Insert Inter-Dry AG cloth into site. Perform site care daily, and change Inter-Dry AG cloth every 5 days, and as needed for cloth soiling.
[2019-03-07] MEDS ORDERED: LIDOCAINE 1%, 20 ML MDV 20 ML ONE (13:12)
[2019-03-07] MEDS ORDERED: LIDOCAINE 2% JELLY UROJECT 10 ML MM ONE (13:12)
--- NOTE | 2019-03-07 14:15 | NUR ---
Bronchoscopy Dr. Chavira and OR/PACU team @ bedside for procedure. Patient in no signs of distress.
--- NOTE | 2019-03-07 16:11 | NUR ---
DC PLANNING: Discussed with patient's sister (Ely Richards) @ regarding dc planning to LTAC. CM provided information regarding LTAC around the area. Patient's sister stated she will be checking out the place. CM to follow up as needed.
[2019-03-07] MEDS ORDERED: SODIUM CHLORIDE IV SCH ×12 (18:00)
[2019-03-07] MEDS ORDERED: [UNRECOGNIZED DRUG - OTHER] IV SCH ×12 (18:00)
[2019-03-07] MEDS ORDERED: TPN CENTRAL IV SCH ×12 (18:00)
[2019-03-07] MEDS ORDERED: SODIUM ACETATE IV SCH ×12 (18:00)
[2019-03-07] MEDS: INSULIN REGULAR, HUMAN 100 UNITS/ML, 10 ML VIAL (humuLIN R) SUBCUT PRN (18:25)
--- NOTE | 2019-03-07 19:25 | NUR ---
Closing Note Endorsed patient to night stocker RN using SBAR format. No signs of distress noted @ this time.
--- NOTE | 2019-03-07 19:30 | NUR ---
PM ASSESSMENT Pt in bed w/ eyes open watching TV, no signs of acute distress or discomfort noted. VSS with SR seen on the monitor. Pt on 50% Venti Mask, tolerating well with O2 sats @ 97% and even and unlabored breathing. Pt has a ALEXEI picc, c/d/i, infusing TPN @ 50 cc/hr, Lipids @ 20 cc/hr and NS @ 30 cc/hr. NG tube noted to L nare, clamped. Brandon cath noted draining urine to gravity. Pt doesn't verbalize any other needs at this time. Bed is locked and in lowest position, call light within reach, seizure pads noted to pt's side rails, will cont to monitor.
[2019-03-07] MEDS: ACETYLCYSTEINE 20% 4 ML VIAL (RT) INH SCH (19:58)
[2019-03-07] MEDS: GABAPENTIN 300 MG CAPSULE PO SCH (20:23)
--- NOTE | 2019-03-07 22:45 | NUR ---
Pt had a BM at this time. Loose stool noted. Pt cleaned and skin care was provided. Pt tolerated well, will cont to monitor.
[2019-03-08] VITALS (25 sets, daily range): BP systolic 105–159
[2019-03-08] MEDS: VANCOMYCIN HCL 1,750 MG in NS 500 ML IV SCH (00:03)
[2019-03-08] MEDS: FAT EMULSIONS 250 ML IV SCH (00:36)
--- NOTE | 2019-03-08 01:29 | NUR ---
Pt in bed with eyes closed resting comfortably, no signs of acute distress or discomfort noted. Bed is locked and in lowest position, call light within reach, will cont to monitor.
[2019-03-08] MEDS: ACETYLCYSTEINE 20% 4 ML VIAL (RT) INH SCH ×4 (01:30→19:00)
[2019-03-08] MEDS: IPRATROPIUM/ALBUTEROL SULFATE 3 ML AMPUL.NEB (DUONEB) INH SCH ×4 (01:30→19:00)
--- NOTE | 2019-03-08 04:10 | NUR ---
Pt in bed with eyes closed resting comfortably, no signs of acute distress or discomfort noted. Pt repositioned at this time, pt tolerated well. Bed is locked and in lowest position, call light within reach, will cont to monitor.
[2019-03-08] MEDS: NACL 0.9% 1,000 ML IV SCH (04:37)
[2019-03-08] MEDS: PIPERACILLIN/TAZO 4.5GM/DEX-IS 100 ML IV SCH ×3 (05:14→21:12)
[2019-03-08] MEDS: INSULIN REGULAR, HUMAN 100 UNITS/ML, 10 ML VIAL (humuLIN R) SUBCUT PRN ×2 (05:20→12:17)
[2019-03-08 05:32] LABS: BASOPHILS # (AUTO) 0.1 K/uL (0.0-0.2); BASOPHILS % (AUTO) 0.7 % (0.0-2.0); EOSINOPHILS # (AUTO) 0.3 K/uL (0.0-0.4); EOSINOPHILS % (AUTO) 3.4 % (0.0-4.0); HEMATOCRIT 29.5 % (36-54); LYMPHOCYTES # (AUTO) 1.1 K/uL (1.0-5.5); LYMPHOCYTES % (AUTO) 13.4 % (20.5-51.5); MEAN CORPUSCULAR HEMOGLOBIN 32 pg (27-31); MEAN CORPUSCULAR HGB CONC 34 % (32-36); MEAN CORPUSCULAR VOLUME 94 fL (79.0-98.0); MONOCYTES # (AUTO) 1.1 K/uL (0.0-1.0); MONOCYTES % (AUTO) 12.9 % (1.7-9.3); NEUTROPHILS % (AUTO) 69.6 % (40.0-70.0); PLATELET COUNT (AUTO) 300 K/uL (130-430); RED BLOOD CELL COUNT(AUTO) 3.16 MIL/uL (4.2-6.2); RED CELL DISTRIBUTION WIDTH 14.7 % (9.0-15.0); WHITE BLOOD COUNT (AUTO) 8.6 K/uL (4.8-10.8)
[2019-03-08 06:13] LABS: ALBUMIN 1.5 g/dL (3.4-4.8); CREATININE 0.68 mg/dL (0.55-1.30); PHOSPHORUS 3.4 mg/dL (2.7-4.5); POTASSIUM 3.7 mmol/L (3.5-5.1)
--- NOTE | 2019-03-08 07:15 | NUR ---
ENDORSEMENT Report given to CHARY Seo using SBAR format and pt care was endorsed. No signs of acute distress or discomfort noted.
--- NOTE | 2019-03-08 07:28 | NUR ---
OPENING NOTE Patient resting in the bed. No acute distress. Respiration even and unlabored. Sin warm and dry to touch. PICC line intact to ALEXEI, no redness, no swelling, covered with clean adn dry transparent dressing. On TPN at 50ml/hr, lipid at 20ml/hr, and NS at 30ml/hr, infusing well. NGT intact ot left nares, on Jevity 1.2 at 30ml/hr, tolerated well. HOB elevated. F/C intact, drain gravity with yellow urine. On contact isolation. Safety measure maintained. Call light within reached,. Bed locked in low position, side rails up. Will continue to monitor.
--- NOTE | 2019-03-08 08:43 | NUR ---
PORTABLE CHEST X-RAY DONE AT BEDSIDE.
[2019-03-08] MEDS ORDERED: TPN CENTRAL IV SCH ×24 (08:45→18:00)
[2019-03-08] MEDS ORDERED: SODIUM CHLORIDE IV SCH ×24 (08:45→18:00)
[2019-03-08] MEDS ORDERED: SODIUM ACETATE IV SCH ×24 (08:45→18:00)
[2019-03-08] MEDS ORDERED: [UNRECOGNIZED DRUG - OTHER] IV SCH ×24 (08:45→18:00)
--- NOTE | 2019-03-08 08:50 | NUR ---
CHG BATH GIVEN, PROCEDURE TOLERATED WELL.
[2019-03-08] MEDS: DOCUSATE SODIUM 100 MG CAPSULE PO SCH ×2 (09:04→21:00)
[2019-03-08] MEDS: TAMSULOSIN HCL 0.4 MG CAP PO SCH (09:04)
[2019-03-08] MEDS: OXYBUTYNIN CHLORIDE 5 MG TABLET PO SCH ×3 (09:04→21:10)
[2019-03-08] MEDS: BISACODYL 5 MG TABLET.DR (DULCOLAX) PO SCH (09:04)
[2019-03-08] MEDS: FLUoxetine HCL 10 MG CAPSULE (PROzac) PO SCH (09:05)
[2019-03-08] MEDS: levETIRAcetam 500 MG TABLET PO SCH ×2 (09:05→21:10)
[2019-03-08] MEDS: LISINOPRIL 20 MG TABLET PO SCH (09:05)
[2019-03-08] MEDS: METOCLOPRAMIDE HCL 10 MG/2 ML VIAL IVP SCH ×3 (09:05→21:00)
[2019-03-08] MEDS: POLYETHYLENE GLYCOL 3350, 17 GM/ POWD.PACK PO SCH (09:05)
[2019-03-08] MEDS: ASPIRIN 81 MG TAB.CHEW PO SCH (09:05)
[2019-03-08] MEDS: MINERAL OIL/PETROLATUM,WHITE 113 GM CREAM.GM. TP SCH ×2 (09:06→21:11)
[2019-03-08] MEDS: ENOXAPARIN SODIUM 40 MG/0.4 ML SYRINGE SUBCUT SCH (09:07)
--- NOTE | 2019-03-08 09:15 | NUR ---
SEEN AND EXAMINED BY LEAH VARGAS.
--- NOTE | 2019-03-08 09:25 | NUR ---
SEEN AND EXAMINED BY DR. MEDEROS [facility].
--- NOTE | 2019-03-08 10:02 | NUR ---
CLINICAL SUPPORT NURSE. DR CAMPUZANO EXPRESSED TO LEAVE PT IN ICU FOR POSSIBLY ANOTHER DAY, HE STATED THAT HE SPOKE TO DR MEDEROS IN REGARDS TO THIS. PATIENT HAD BRONCHOSCOPY YESTERDAY.
--- NOTE | 2019-03-08 11:20 | NUR ---
G-TUBE FEEDING Called [facility] Raines and received the call back. Informed to Dr. Asher the dietitian concerned that the patient with TPN and lipid plus G-tube feeding wanted to clarify it. Dr. Asher asked if the patient tolerated well on feeding, any vomiting and BM. Answered to Dr. Asher patient tolerated feeding well, no residual, no vomiting, BM x1 last night and one this morning. Dr. Asher with order "DC TPN and lipid, increase G-tube feeding to 60ml/hr". Order read back and okay to Dr. Alberto.Also informed to Dr. Asher, the x-ray showed severely dilated small bowel loops. Dr. Asher stated "the patient tolerated well on feeding and has BM that's fine".
--- NOTE | 2019-03-08 12:45 | NUR ---
Nutrition F/U RD reviewed pt's current EMR including diet Hx, physician notes, nursing notes, pertinent labs/meds/procedures, care trends and care activity. Current Diet Order: Jevity 1.2 at 60ml/hr, FWF 250ml Q6H via NGT x 0 days Subjective information: Earlier today, pt w/ order for TPN+Lipids and NGT feeding. (Jevity 1.2 at 30ml/hr AND D40% AA10% at 50ml/hr, IL20% at 20ml/hr via Central line). Which will provide excessive nutrients to pt. RD s/w RN and RN clarified w/ MD. MD ordered to STOP TPN, and increase NGT feeding at 1154. Per RN report, pt is tolerating EN support, no residual this morning and pt was able to have a BM. Pt may benefit from Vital AF 1.2 for better GI tolerance. Current PO intake: N/A on EN support Estimated Energy Expenditure (kcals/day) 0437-0346 kcal/day (30-35 kcal/kg Adj IBW for paraplegia (67 kg)/surgical healing) NEW Estimated Protein Required (g/day) 80-121 gm/day (1.2-1.8 gm/kg Adj IBW for paraplegia (67 kg)/surgical healing) Estimated Fluid Required (l/day) 1.7-2 L/day (1 ml/kcal/day for maintenance) Problem/Etiology/Signs/Symptoms Increased nutritional needs related to metabolic demands as evidenced by estimated nutritional requirements for sepsis. *no longer applicable Suboptimal PO intakes related to possible lack of appetite associated w/ cognitive limitations as evidenced by negligible PO intake records. *no longer applicable Expected Outcomes/Goals - Monitor EN tolerance and intake w/ goal of pt meeting at least 75% of estimated nutritional needs, labs trending WNL, normal GI function, and skin integrity/wt maintenance Dietitian Recommendations * Recommend Vital AF 1.2 at 60ml/hr, Alin BID, FWF 150ml Q6 H via NGT Provides: 1888 kcal, 113 gm protein and 1768ml free water daily. Meets: 94% of lower end of estimated calorie needs and 112% of upper end of estimated protein needs. Follow Up High Risk: F/U in 2-3 days
--- NOTE | 2019-03-08 12:56 | NUR ---
Dietitian Recommendations * Recommend Vital AF 1.2 at 60ml/hr, Alin BID, FWF 150ml Q6 H via NGT Provides: 1888 kcal, 113 gm protein and 1768ml free water daily. Meets: 94% of lower end of estimated calorie needs and 112% of upper end of estimated protein needs. Please see nutrition F/U note for details. JAIL, RD
--- NOTE | 2019-03-08 13:20 | NUR ---
CONTINUE LOWER THE RATE OF TPN AND INCREASED THE RATE OF NGT FEEDING EVERY HOUR TOLERATED.
--- NOTE | 2019-03-08 15:00 | NUR ---
SEEN AND EXAMINED BY TASNEEM MURILLO.
--- NOTE | 2019-03-08 15:05 | NUR ---
OFF TPN, ON NGT FEEDING AT 60ML/HR, TOLERATED WELL. NO NAUSEA/VOMITING NOTE. HOB ELEVATED.
[2019-03-08] MEDS ORDERED: FUROSEMIDE 20 MG/2 ML VIAL IVP ONE (15:45)
[2019-03-08] MEDS ORDERED: LORazepam 2 MG/ML VIAL IVP PRN (15:45)
--- NOTE | 2019-03-08 17:00 | NUR ---
ROUND Patient resting in the bed. No acute distress. PICC intact, IVF infusing well. NGT intact, feeding tolerated well. F/C intact, drain gravity. Safety measure maintained. Call light within reached. Continue to monitor.
[2019-03-08] MEDS: VANCOMYCIN HCL 1,250 MG in NS 250 ML IV SCH (18:33)
--- NOTE | 2019-03-08 19:22 | NUR ---
CLOSING NOTE Patient resting in the bed. No acute distress. Respiration even and unlabored. Skin warm and dry to touch. PICC line intact to ALEXEI, no redness, no swelling, covered with clean and dry transparent dressing, infusing Vancomycin at this time. NGT intact to left nares, on Vital 1.2 at 60ml/hr, tolerated well. HOB elevated. F/C intact, drain gravity with yellow urine. On contact isolation. Safety measure maintained. Call light within reached,. Bed locked in low position, side rails up. Endorse to night nurse, SBAR given.
--- NOTE | 2019-03-08 20:45 | NUR ---
DR MEDEROS CONSULTED FOR HR 145-165, NURSE INSTRUCTED TO CALL STUDENT TEACHING COORDINATOR, DR CARDOZO CARDIOPULMONARY TECHNICIAN
[2019-03-08] MEDS: GABAPENTIN 300 MG CAPSULE PO SCH (21:10)
[2019-03-08] MEDS: MORPHINE 2 MG/ML INJ. SYRINGE IVP PRN (21:10)
--- NOTE | 2019-03-08 21:30 | NUR ---
PT HAD MODERATE AMOUNT OF BROWN EMESIS. TUBE FEEDING TURNED OFF AND NGT CONNECTED TO RESTAURANT CREW, ZOFAN GIVEN, ORAL CARE AND SUCTIONING DONE
[2019-03-08] MEDS: ONDANSETRON HCL 4 MG/2 ML VIAL IVP PRN (22:37)
--- NOTE | 2019-03-08 23:30 | NUR ---
2330 DR CARDOZO RETURNED CALL. UPDATED ON PATIENT CONDITION, READING OF CHEST XRAY AND CURRENT VITAL SIGNS. HR 110-120, B/P 105/65, TUBE FEEDING CURRENTLY OFF PT HAD EMESIS AND NGT CURRENTLY TO BINDERY CHIEF WITH 250ML OUTPUT. NO NEW ORDERS RECEIVED, CONTINUE TO WATCH PATIENT 2300 DR CARDOZO RE-PAGED 5 DR CARDOZO PAGED WITH CHEST XRAY RESULTS 2129 EKG RESULTS FAXED TO DR CARDOZO 2109 DR CARDOZO RETURNED CALL. PT'S HR 145-175, B/P 128/72 (95), AFEBRILE, ORDERS RECEIVED FOR STAT EKG AND CHEST XRAY.
[2019-03-09] VITALS (13 sets, daily range): BP systolic 103–138
[2019-03-09] MEDS: IPRATROPIUM/ALBUTEROL SULFATE 3 ML AMPUL.NEB (DUONEB) INH SCH ×4 (01:45→19:10)
[2019-03-09] MEDS: ACETYLCYSTEINE 20% 4 ML VIAL (RT) INH SCH ×4 (01:46→19:10)
[2019-03-09] MEDS ORDERED: DIPHENHYDRAMINE INJ 50 MG/ML VIAL IVP SCH (02:15)
[2019-03-09 07:24] LABS: BASOPHILS % (AUTO) 0.3 % (0.0-2.0); EOSINOPHILS # (AUTO) 0.1 K/uL (0.0-0.4); EOSINOPHILS % (AUTO) 0.4 % (0.0-4.0); HEMATOCRIT 32.4 % (36-54); HEMOGLOBIN 10.7 g/dL (14.0-18.0); LYMPHOCYTES # (AUTO) 0.8 K/uL (1.0-5.5); MEAN CORPUSCULAR HEMOGLOBIN 31 pg (27-31); MEAN CORPUSCULAR HGB CONC 33 % (32-36); MEAN CORPUSCULAR VOLUME 94 fL (79.0-98.0); MONOCYTES # (AUTO) 1.5 K/uL (0.0-1.0); MONOCYTES % (AUTO) 13.4 % (1.7-9.3); NEUTROPHILS # (AUTO) 9.1 K/uL (1.8-7.7); NEUTROPHILS % (AUTO) 78.9 % (40.0-70.0); PLATELET COUNT (AUTO) 356 K/uL (130-430); RED BLOOD CELL COUNT(AUTO) 3.43 MIL/uL (4.2-6.2); WHITE BLOOD COUNT (AUTO) 11.5 K/uL (4.8-10.8)
[2019-03-09 07:49] LABS: CALCIUM 8.6 mg/dL (8.4-11.0); CREATININE 0.75 mg/dL (0.55-1.30); PHOSPHORUS 2.5 mg/dL (2.7-4.5)
--- NOTE | 2019-03-09 08:00 | NUR ---
PT NO ACUTE DISTRESS. ON 50% VENTI MASK. N/G TUBE INTERMITTEN SUCTION. FEEDING CLAMPED. F/C DRAINING YELLOW COLERED URINE. TELE MONITOR SHOWS ST. CALL RIGHT WITHN REACH. SAFETY MEASURES MAINTAINED.
--- NOTE | 2019-03-09 08:54 | NUR ---
Paged Dr. Mtz regarding orders and updates, spoke with exchange.
--- NOTE | 2019-03-09 10:43 | NUR ---
DNR status requested by pt's sister Ely Richards. Dr. Armendariz notified, verified with second RN.
[2019-03-09] MEDS: DIPHENHYDRAMINE INJ 50 MG/ML VIAL IVP SCH ×2 (12:08→18:26)
--- NOTE | 2019-03-09 12:13 | NUR ---
Case mgt: Rec'd order for LTAC eval for [facility] and [facility]-I called sister Ely Richards at [phone] to f/u on her decision for which LTAC she prefers. I informed Ely that Dr. Armendariz had requested f/u eval for these facilities. Per Ely, "She doesn't think her brother is going to make it out of the hospital due to his condition" I explained that Dr. Armendariz was requesting f/u for pt to transfer to the LTAC, and that the LTAC could continue his care at their facilities if transferred. I explained we have evaluation order only, and Ely said she hadn't looked at either facility yet, but either facility is ok for [facility] or [facility] and not to call her unless he's ok to transfer. I called Christy at [facility] [phone]--and let Christy know LTAC will be either [facility] or [facility]. Faxing updated MD progress notes, medications, labs-Christy made aware pt is in ICU on VM 50%--faxing info to [phone] per # from Christy. TAWANA DIEZ Addendum: 03/09/19 at 1549 by Ayesha Silva RN Case Mgt: Rec'd call from Christy at [facility]--pt has been accepted at both [facility] and [facility]--per Bashir in ICU, she had a discussion with pt's sister Ely earlier today regarding DNR and comfort measures only--I informed this to Dr. Armendariz--he will f/u with Bashir, as if pt's sister desires comfort measures only, then hospice eval may need to be considered instead of LTAC transfer. ICU nurse Maame made aware that pt is accepted at both [facility] and [facility] LT[facility]s. TAWANA DIEZ
[2019-03-09] MEDS: PIPERACILLIN/TAZO 4.5GM/DEX-IS 100 ML IV SCH ×2 (14:00→21:51)
[2019-03-09] MEDS: OXYBUTYNIN CHLORIDE 5 MG TABLET PO SCH ×3 (14:30→23:55)
[2019-03-09] MEDS: METOCLOPRAMIDE HCL 10 MG/2 ML VIAL IVP SCH ×2 (15:00→23:55)
--- NOTE | 2019-03-09 16:45 | NUR ---
Received patient from cristin Oneil and report. Patient in bed in no acute distress. Side rails x 3 up call light with in reach.
--- NOTE | 2019-03-09 19:20 | NUR ---
Gave report to Anabell in tele. Noc shift will transfer. Patient on tele status.
--- NOTE | 2019-03-09 19:50 | NUR ---
TRANSFER TO TELEMETRY / INITIAL NOTE PATIENT RECEIVED AT THIS TIME FROM ICU TO TELEMETRY UNIT IN ROOM 110A, ISOLATION PRECAUTIONS ARE IN PLACE. AT THIS TIME, PATIENT IS RESTING IN BED, STABLE, NO SIGNS OF RESPIRATORY DISTRESS. PATIENT IS NON VERBAL, RESPONSIVE TO LIGHT TOUCH. PLAN OF CARE IS COMMUNICATED WITH THE PATIENT. PATIENT SHOWS NO PAIN PER FLACC SCALE. BED IS LOCKED, ALARMED, AND AT THE LOWEST LEVEL. FALL, SAFETY, ISOLATION, AND ASPIRATION PRECAUTIONS WILL BE IN PLACE THROUGHOUT THE SHIFT.
[2019-03-09] MEDS: NACL 0.9% 1,000 ML IV SCH (21:49)
[2019-03-09] MEDS: MINERAL OIL/PETROLATUM,WHITE 113 GM CREAM.GM. TP SCH (21:50)
[2019-03-09] MEDS: VANCOMYCIN HCL 1,250 MG in NS 250 ML IV SCH (21:50)
[2019-03-09] MEDS: DOCUSATE SODIUM 100 MG CAPSULE PO SCH (23:54)
[2019-03-09] MEDS: GABAPENTIN 300 MG CAPSULE PO SCH (23:55)
[2019-03-10] MEDS: DIPHENHYDRAMINE INJ 50 MG/ML VIAL IVP SCH ×5 (00:01→23:21)
[2019-03-10] MEDS: levETIRAcetam 500 MG TABLET PO SCH ×3 (00:01→20:41)
[2019-03-10] MEDS: IPRATROPIUM/ALBUTEROL SULFATE 3 ML AMPUL.NEB (DUONEB) INH SCH ×4 (01:03→19:38)
[2019-03-10] MEDS: ACETYLCYSTEINE 20% 4 ML VIAL (RT) INH SCH ×4 (01:03→19:39)
[2019-03-10 01:40] VITALS: BP_SYST 141
--- NOTE | 2019-03-10 04:00 | NUR ---
PICC LINE DRESSING CHANGE PICC LINE DRESSING IS CHANGED AT THIS TIME USING STERILE TECHNIQUE. PATIENT TOLERATED WELL.
[2019-03-10] MEDS: PIPERACILLIN/TAZO 4.5GM/DEX-IS 100 ML IV SCH ×3 (05:24→21:08)
[2019-03-10] MEDS: VANCOMYCIN HCL 1,250 MG in NS 250 ML IV SCH (05:25)
[2019-03-10] MEDS: MORPHINE 2 MG/ML INJ. SYRINGE IVP PRN ×2 (05:27→14:22)
[2019-03-10 06:35] LABS: BASOPHILS # (AUTO) 0.1 K/uL (0.0-0.2); BASOPHILS % (AUTO) 0.5 % (0.0-2.0); EOSINOPHILS # (AUTO) 0.2 K/uL (0.0-0.4); EOSINOPHILS % (AUTO) 2.3 % (0.0-4.0); HEMATOCRIT 28.7 % (36-54); HEMOGLOBIN 9.7 g/dL (14.0-18.0); LYMPHOCYTES # (AUTO) 1.5 K/uL (1.0-5.5); LYMPHOCYTES % (AUTO) 14.5 % (20.5-51.5); MEAN CORPUSCULAR HEMOGLOBIN 32 pg (27-31); MEAN CORPUSCULAR HGB CONC 34 % (32-36); MEAN CORPUSCULAR VOLUME 95 fL (79.0-98.0); MONOCYTES # (AUTO) 1.6 K/uL (0.0-1.0); MONOCYTES % (AUTO) 14.9 % (1.7-9.3); NEUTROPHILS # (AUTO) 7.2 K/uL (1.8-7.7); NEUTROPHILS % (AUTO) 67.8 % (40.0-70.0); PLATELET COUNT (AUTO) 394 K/uL (130-430); RED BLOOD CELL COUNT(AUTO) 3.03 MIL/uL (4.2-6.2); WHITE BLOOD COUNT (AUTO) 10.6 K/uL (4.8-10.8)
--- NOTE | 2019-03-10 06:40 | NUR ---
CLOSING NOTE PATIENT WAS HAD 500 ML OF GASTRIC SECRETIONS FROM HIS NGT DURING THE SHIFT, HE WAS ASPIRATING LESS AT THE END OF THE SHIFT. PATIENT IS NOW VERBALLY RESPONSIVE NOD/ SHAKES HIS HEAD TO ANSWER QUESTIONS, HIS SISTER TASNEEM WAS UPDATED. AT THIS TIME, HE IS RESTING IN BED, STABLE, NO SIGNS OF RESPIRATORY DISTRESS. BED IS LOCKED, ALARMED, AND AT THE LOWEST LEVEL. FALL, SAFETY, ASPIRATION, AND ISOLATION PRECAUTIONS HAVE BEEN TAKEN THROUGHOUT THE SHIFT. WILL CONTINUE TO MONITOR UNTIL SHIFT REPORT IS GIVEN AT BEDSIDE TO AM NURSE.
[2019-03-10 07:10] LABS: ALBUMIN 1.4 g/dL (3.4-4.8); CALCIUM 8.5 mg/dL (8.4-11.0); CREATININE 0.67 mg/dL (0.55-1.30); POTASSIUM 4.4 mmol/L (3.5-5.1); TOTAL BILIRUBIN 0.8 mg/dL (0.0-1.0)
[2019-03-10 08:00] VITALS: BP_SYST 135
--- NOTE | 2019-03-10 08:00 | NUR ---
AM NOTES- IN BED, OPEN HIS EYES WHEN NAME CALLED. SISTER AT BEDSIDE. ON NGT AT LOW INTERMITTENT SUNCTION AT 100CC LEVEL AT THIS TIME. ABDOMINAL INCISON IS MAURA AND INTACT AND ITS OPEN TO AIR. IVF INFUSING WELL. NO DISTESS NOTED. MAINTAIN ON CONTACT ISOLATION. WILL CONTINUE TO MONITOR.
[2019-03-10] MEDS: OXYBUTYNIN CHLORIDE 5 MG TABLET PO SCH ×3 (09:00→20:41)
[2019-03-10] MEDS: MINERAL OIL 30 ML UDC NG SCH ×2 (09:31→20:43)
[2019-03-10] MEDS: DOCUSATE SODIUM 100 MG CAPSULE PO SCH ×2 (09:31→20:47)
[2019-03-10] MEDS: METOCLOPRAMIDE HCL 10 MG/2 ML VIAL IVP SCH ×3 (09:32→20:42)
[2019-03-10] MEDS: TAMSULOSIN HCL 0.4 MG CAP PO SCH (09:33)
[2019-03-10] MEDS: ASPIRIN 81 MG TAB.CHEW PO SCH (09:33)
[2019-03-10] MEDS: POLYETHYLENE GLYCOL 3350, 17 GM/ POWD.PACK PO SCH (09:33)
[2019-03-10] MEDS: BISACODYL 5 MG TABLET.DR (DULCOLAX) PO SCH (09:33)
[2019-03-10] MEDS: LISINOPRIL 20 MG TABLET PO SCH (09:34)
[2019-03-10] MEDS: ENOXAPARIN SODIUM 40 MG/0.4 ML SYRINGE SUBCUT SCH (09:35)
[2019-03-10] MEDS: MINERAL OIL/PETROLATUM,WHITE 113 GM CREAM.GM. TP SCH ×2 (09:36→20:48)
[2019-03-10] MEDS: FLUoxetine HCL 10 MG CAPSULE (PROzac) PO SCH (09:36)
--- NOTE | 2019-03-10 09:45 | NUR ---
DC Planning: New order: Hospice eval. MADHAV s/w pt's sister/Ely, confirming that she agreed with hospice eval. She wants to get more information and will meet with [facility] hospice staff at 2pm today.
--- NOTE | 2019-03-10 10:00 | NUR ---
NOTES- MORNING MEDS GIVEN, NGT CLAMPED FOR THE MEAN TIME. TURNED AND REPOSITIONED.
[2019-03-10 10:58] VITALS: BP_SYST 135
[2019-03-10 11:26] VITALS: BP_SYST 127
[2019-03-10] MEDS: NACL 0.9% 1,000 ML IV SCH ×2 (12:18→20:48)
--- NOTE | 2019-03-10 14:30 | NUR ---
notes- Patient nodded when you asked him if he is in pain, medicated with morphine as ordered. No acute distress noted.
[2019-03-10 15:24] VITALS: BP_SYST 134
--- NOTE | 2019-03-10 16:04 | NUR ---
Notes- Resting comfortably, no distress noted.
--- NOTE | 2019-03-10 18:21 | NUR ---
Notes- In bed, awake. denies any pain, no distress and looks comfortable. NG output at 400cc level.
--- NOTE | 2019-03-10 19:10 | NUR ---
OPENING NOTES Pt and endorsement received from day shift nurse. Pt is resting in bed with both eyes closed, with visible chest rise and fall with unlabored breathing noted. Pt on O2 inhalation at 9L via venti mask. Pt on IVF with NS at 70ml/hr and infusing well on right upper arm PICC. Pt in NG tube with continuous low suctioning. Pt on fuentes catheter with yellow urine noted in the bad and hanged below bladder level. No signs of pain like moaning or grimacing. No signs of acute distress or SOB noted. Safety precautions in place with 3 side rails up, wheels locked, bed alarm on and in lowest position. Aspiration precautions with HOB elevated at 45 degrees. Call light with pt. Will continue to monitor. Addendum: 03/11/19 at 0039 by Lois Kohler RN Pt on low intermittent suctioning not continuous suctioning.
[2019-03-10 20:38] VITALS: BP_SYST 124
[2019-03-10] MEDS: GABAPENTIN 300 MG CAPSULE PO SCH (20:42)
--- NOTE | 2019-03-10 21:15 | NUR ---
PAIN MED Pt was moaning and grimacing, asked him if he was in pain and pt nodded. FLACC scale is 6/10. Morphine 1mg IVP given as ordered. Low intermittent suctioning was turned off. All other due meds via NG tube and IV given, pt tolerated well. HOB at 50 degrees at the moment. Will continue to monitor.
--- NOTE | 2019-03-10 22:30 | NUR ---
ROUNDS Resumed pt's low intermittent suctioning. No complains of pain and no signs of acute distress noted. IVF infusing well. Safety, aspiration and seizure precautions in place. Call light with pt. Will continue to monitor.
[2019-03-10] MEDS: INSULIN REGULAR, HUMAN 100 UNITS/ML, 10 ML VIAL (humuLIN R) SUBCUT PRN (23:24)
--- NOTE | 2019-03-11 00:09 | NUR ---
SPOKE TO PT'S SISTER TASNEEM Spoke to pt's sister Tasneem, updated her on pt's condition that the pt is sleeping at this time and was given pain medication a while ago. Tasneem requested not to have pt's labs drawn in the morning since pt is a hard stick and she also said his brother will be going to hospice. Informed charge nurse Radha about Tasneem's request and will also inform lab in the morning.
[2019-03-11 00:30] VITALS: BP_SYST 126
[2019-03-11] MEDS: IPRATROPIUM/ALBUTEROL SULFATE 3 ML AMPUL.NEB (DUONEB) INH SCH ×3 (01:14→13:51)
[2019-03-11] MEDS: ACETYLCYSTEINE 20% 4 ML VIAL (RT) INH SCH ×3 (01:15→13:51)
--- NOTE | 2019-03-11 02:59 | NUR ---
ROUNDS Pt is resting in bed with both eyes closed, with visible chest rise and fall with unlabored breathing noted. IVF infusing well. No signs of pain like moaning or grimacing. No signs of acute distress noted. Safety, aspiration and seizure precautions in place. Call light with pt. Will continue to monitor.
[2019-03-11 03:37] VITALS: BP_SYST 133
[2019-03-11] MEDS: MORPHINE 2 MG/ML INJ. SYRINGE IVP PRN ×2 (03:40→10:58)
--- NOTE | 2019-03-11 03:40 | NUR ---
PAIN MED Pt was moaning and grimacing, asked him if he was in pain and pt stated "all over". I asked him if it was severe and the pt nodded. Morphine 2mg IVP given as ordered. Vital signs taken and recorded. No signs of acute distress noted. Will continue to monitor.
[2019-03-11] MEDS: PIPERACILLIN/TAZO 4.5GM/DEX-IS 100 ML IV SCH (05:06)
[2019-03-11] MEDS: DIPHENHYDRAMINE INJ 50 MG/ML VIAL IVP SCH ×2 (05:06→12:35)
[2019-03-11] MEDS: INSULIN REGULAR, HUMAN 100 UNITS/ML, 10 ML VIAL (humuLIN R) SUBCUT PRN (05:15)
--- NOTE | 2019-03-11 06:51 | NUR ---
CLOSING NOTES Pt is resting in bed with both eyes closed, with visible chest rise and fall with unlabored breathing noted. IVF infusing well. Kept O2 inhalation at 9L via venti mask. Pt on low intermittent suctioning. Kept fuentes bag hanged below bladder level. No complains of pain or signs like moaning and grimacing. No signs of acute distress or SOB noted. All needs attended throughout the shift. Safety precautions in place with 3 side rails up, wheels locked, bed alarm on and in lowest level. Call light with pt. Will endorse to day shift nurse.
--- NOTE | 2019-03-11 07:20 | NUR ---
Initial notes: Patient sleeping. Non verbal. Stable. Oxygen @9l via mask. PICC line in placed. On n NG tube intermittent suction. Brandon Cath draining well by gravity. Safety measures in placed. Report received at bedside.
--- NOTE | 2019-03-11 08:00 | NUR ---
MD rounds: Seen by Dr. Davila with order to start gtube @10cc hr. Increased every 2 hours to 10 until 50.
--- NOTE | 2019-03-11 10:02 | NUR ---
Hospice [employer]IC[employer]ED [employer] DISPENS[employer] spoke with patient's brother in law outside patient's room. Due to patient's limited mental capacity, they are not discussing with patient that he will be on hospice. Spoke with patient's sister, Ely, and LIZETH on the phone. They have signed patient on to [facility] and are awaiting SNF placement on hospice. LICENSED OPTICAL DISPENSER assured Ely that patient would not be discharged until a SNF bed was found. Phoned Haydee at [facility], . She is actively looking for a hospice SNF bed for patient in the [place] area, maybe [facility] or [facility]. She will notify [employer]ED OPT[employer] DISPENSER when a bed is found. will continue to follow.
--- NOTE | 2019-03-11 11:05 | NUR ---
Tube feeding: family refused tube feeding.
[2019-03-11] MEDS ORDERED: MORPHINE 4 MG/ML INJ. SYRINGE IVP SCH (11:15)
[2019-03-11] MEDS ORDERED: LORazepam 2 MG/ML VIAL IV SCH (11:15)
[2019-03-11 12:00] VITALS: BP_SYST 132
--- NOTE | 2019-03-11 12:53 | NUR ---
rounds: patient eye closed. no distress noted. appears comfortable sleeping.
--- NOTE | 2019-03-11 13:08 | NUR ---
Hospice [facility] with [facility] phoned, . Discharge arranged for 2p to [facility]. She will arrange transportation and notify all parties.
--- NOTE | 2019-03-11 13:18 | NUR ---
Hospice: Give report to Isaac, Hospice Nurse. Patient going to [facility]. Ambulance will be [facility] and picker operator time at 14:00. Patient will go with PICC line, Brandon Cath and NGtube.
[2019-03-11 13:26] VITALS: BP_SYST 128
--- NOTE | 2019-03-11 14:34 | NUR ---
PT TRANSFERRED [facility] Report given to [facility]. Transfer packet with Transfer Orders and Medication Reconciliation form given to EMT with report. Exitcare provided. [facility] ID band removed, replaced with ID band with pt's name and . PICC line intact. Brandon Cath in placed. All belongings sent with patient. Patient left floor via gurney escorted by EMT in no distress.
== END 2019-03-11 14:34 | disposition hospice, inpatient (51) | DRG 853 ==
LOC: SIC 18:27 → STU 02-19 14:53 → SMU 02-24 10:28 → SIC 02-27 01:00 → STU 02-28 18:59 → SIC 03-04 10:58 → STU 03-09 20:17 → SMU 03-10 10:14
PROVIDERS: ADMIT Student in an Organized Health Care Education/Training Program; ATTEND Student in an Organized Health Care Education/Training Program
PROC: 0D9670Z Drainage of Stomach with Drainage Device, Via Natural or Artificial Opening (ICD-10-PCS; principal; 2019-02-16)
PROC: 0DTJ0ZZ Resection of Appendix, Open Approach (ICD-10-PCS; 2019-02-26)
PROC: 0DN80ZZ Release Small Intestine, Open Approach (ICD-10-PCS; 2019-02-26)
PROC: 0DQ80ZZ Repair Small Intestine, Open Approach (ICD-10-PCS; 2019-02-26)
PROC: 0DNE0ZZ Release Large Intestine, Open Approach (ICD-10-PCS; 2019-02-26)
PROC: 3E0336Z Introduction of Nutritional Substance into Peripheral Vein, Percutaneous Approach (ICD-10-PCS; 2019-02-28)
PROC: 0B9L8ZZ Drainage of Left Lung, Via Natural or Artificial Opening Endoscopic (ICD-10-PCS; 2019-03-07)
PROC: 0WCQ8ZZ Extirpation of Matter from Respiratory Tract, Via Natural or Artificial Opening Endoscopic (ICD-10-PCS; 2019-03-07)
PROC: 0B918ZZ Drainage of Trachea, Via Natural or Artificial Opening Endoscopic (ICD-10-PCS; 2019-03-07)
PROC: 0BCL8ZZ Extirpation of Matter from Left Lung, Via Natural or Artificial Opening Endoscopic (ICD-10-PCS; 2019-03-07)
PROC: 0CCM8ZZ Extirpation of Matter from Pharynx, Via Natural or Artificial Opening Endoscopic (ICD-10-PCS; 2019-03-07)
DX: A41.9 Sepsis, unspecified organism (principal); E43 Unspecified severe protein-calorie malnutrition; J69.0 Pneumonitis due to inhalation of food and vomit; J96.01 Acute respiratory failure with hypoxia; J98.11 Atelectasis; G93.1 Anoxic brain damage, not elsewhere classified; E87.1 Hypo-osmolality and hyponatremia; G80.1 Spastic diplegic cerebral palsy; E87.0 Hyperosmolality and hypernatremia; K56.7 Ileus, unspecified; K56.50 Intestinal adhesions [bands], unspecified as to partial versus complete obstruction; S36.438A Laceration of other part of small intestine, initial encounter; R74.0 Nonspecific elevation of levels of transaminase and lactic acid dehydrogenase [LDH]; R65.20 Severe sepsis without septic shock; I48.0 Paroxysmal atrial fibrillation; R21 Rash and other nonspecific skin eruption; R13.10 Dysphagia, unspecified; N40.0 Benign prostatic hyperplasia without lower urinary tract symptoms; R62.7 Adult failure to thrive; N32.81 Overactive bladder; Z66 Do not resuscitate; Z51.5 Encounter for palliative care; G40.909 Epilepsy, unspecified, not intractable, without status epilepticus; E87.6 Hypokalemia; E83.42 Hypomagnesemia; K59.09 Other constipation; F79 Unspecified intellectual disabilities; F03.90 Unspecified dementia, unspecified severity, without behavioral disturbance, psychotic disturbance, mood disturbance, and anxiety; E86.0 Dehydration; E83.39 Other disorders of phosphorus metabolism; D64.9 Anemia, unspecified; E66.9 Obesity, unspecified; I10 Essential (primary) hypertension; X58.XXXA Exposure to other specified factors, initial encounter; Y93.89 Activity, other specified; Y92.89 Other specified places as the place of occurrence of the external cause; Y99.8 Other external cause status; Z74.01 Bed confinement status; Z79.82 Long term (current) use of aspirin; Z79.899 Other long term (current) drug therapy; Z68.33 Body mass index [BMI] 33.0-33.9, adult; Z90.81 Acquired absence of spleen; Z98.2 Presence of cerebrospinal fluid drainage device; Z87.820 Personal history of traumatic brain injury
CPT/HCPCS: 31624; 36415; 36600; 71045; 71275; 74018; 74021; 74250-TC; 76700-TC; 80048; 80053; 80061; 80076; 80202-TC; 81000-TC; 82040-TC; 82140-TC; 82150-TC; 82803-TC; 82962; 83036; 83605; 83690-TC; 83735-TC; 83880; 84100-TC; 84439; 84443-TC; 84478-TC; 84484; 85007; 85025; 85027; 85610-TC; 85730-TC; 86886; 86900; 86901; 87040-TC; 87070-TC; 87081; 87086; 87186-TC; 87205-TC; 87230-TC; 88304; 92610-GN; 93005; 93306; 94002; 94640; 94760; C1751; G0378; J0610; J0692; J1200; J1644; J1650; J1815; J1885; J1940; J2001; J2060; J2250; J2270; J2310; J2405; J2543; J2704; J2765; J3010; J3370; J3475; J3480; J3490; J7030; J7040; J7042; J7050; J7060; J7120; J7131; J7608; J7620; J8597; Q9963; Q9967